=== PATIENT | female | born 1965 | race Caucasian/White ===

== ENCOUNTER → 2017-11-02 07:24 | Outpatient (CLI) | payer OTHER, MEDICAID, SELFPAY ==
--- NOTE | 2017-11-02 07:29 | CT_ITS ---
STUDY: CT LEFT ANKLE WITHOUT CONTRAST REASON FOR EXAM: Female, 51 years old. Nonunion of left ankle fracture. RADIATION DOSAGE (If Supplied By Facility): CTDIvol = ( 15.35 ) mGy, DLP = ( 439.42 ) mGycm TECHNIQUE: Thin section transaxial imaging of the ankle was obtained, with sagittal and coronal reconstructed images. Individualized dose optimization techniques were used for this CT. COMPARISON: Comparison is made with prior radiograph dated August 04, 2017. FINDINGS: There is evidence of a surgical resection of the distal fibula. Screw and sideplate fixation device is seen along the distal portion of the lateral aspect of the tibia. The plate traverses the tibial talar articulation with 2 screws within the talar dome. This is in keeping with the surgical arthrodesis. New cortical bone is seen along the medial aspect of the distal tibia. There is resorption of bone in the distal tibia as well as resorption of the body of the talus and the dome of the talus with the distraction of the fracture fragments. There is diffuse persistent soft tissue swelling. Plantar spur. The ankle mortise is asymmetrical. CT/Extremity Lower without Contra IMPRESSION: Status post arthrodesis of the table talar joint with asymmetry of the ankle joint and fragmentation of the distal portion of the tibia and the superior portion of the talus. Diffuse soft tissue swelling. Electronically Signed: Jayce Anderson MD at 10:29 EST Tel [phone], Service support ,
[2017-11-02 08:34] LABS: Erythrocyte Sedimentation Rate 60 mm/hr (0-30)
[2017-11-02 08:38] LABS: Absolute Lymphocyte Count 2.02 X10^3/ul (0.83-4.51); Absolute Neutrophil Count 4.8 X10^3/uL (2.0-7.7); Basophil# 0.04 X10^3/uL; Basophil% 0.5 % (0-1); Eosinophil# 0.35 X10^3/uL; Eosinophils% 4.6 % (0-5); Hematocrit 40.6 % (37-47); Hemoglobin 12.5 g/dl (12.0-15.0); Lymphocyte # 2.02 X10^3/ul (4.0); Lymphocyte % 26.4 % (19-41); Mean Corp Hgb Conc 30.8 g/gl (32-36); Mean Corpuscular Hgb 24.9 pg (27.0-32.0); Mean Corpuscular Volume 80.9 fL (81-99); Mean Platelet Vol. 10.8 fl (6.2-12.0); Monocyte# 0.45 X10^3/uL; Monocyte% 5.9 % (0-10); Neutrophil # 4.79 X10^3/uL (2.7-7.7); Neutrophil % 62.5 % (47-70); Platelet Count 295 K/mm3 (150-450); RBC Distribution Width CV 17.3 % (11.6-14.6); RBC Distribution Width SD 50.6 fl (35.1-43.9); Red Blood Count 5.02 M/mm3 (4.2-5.4); White Blood Count 7.7 K/mm3 (4.4-11.0)
[2017-11-02 08:42] LABS: POSITIVE COUNT NO; POSITIVE DIFFERENTIAL NO; POSITIVE MORPHOLOGY NO
[2017-11-02 08:54] LABS: ALB/GLOB Ratio 0.7 RATIO (0.9-2.4); AST(SGOT) 9 U/L (15-37); Alanine Aminotransfer ALT/SGPT 18 U/L (12-78); Albumin, Serum 3.1 g/dL (3.4-5.0); Alkaline Phosphatase 142 U/L (45-117); Anion Gap 7 (5-15); BUN 26 mg/dL (7-18); Calcium,Total 8.9 mg/dL (8.5-10.1); Chloride 109 mmol/L (98-107); Creatinine, Serum 0.96 mg/dL (0.55-1.02); EST Glomerular Filtration Rate 64 mL/min (>60); Est Glom Filt Rate - Afr Amer 78 mL/min (>60); Globulin 4.6 g/dL (2.2-4.2); Glucose 87 mg/dL (70-110); Potassium 4.1 mmol/L (3.5-5.1); Protein, Total 7.7 g/dL (6.4-8.2); Sodium Level 141 mmol/L (136-145)
[2017-11-03 08:45] LABS: Vitamin D,25 Hydroxy 45.3 ng/mL
== END ==
PROVIDERS: Family Provider Family Medicine; PCP Family Medicine; Visit Provider Podiatrist
DX: S82.892K Other fracture of left lower leg, subsequent encounter for closed fracture with nonunion (principal); X58.XXXD Exposure to other specified factors, subsequent encounter; M25.572 Pain in left ankle and joints of left foot; Z98.1 Arthrodesis status
CPT/HCPCS: 36415; 73700; 80053; 82306; 85025; 85652; 86140

== ENCOUNTER 2017-11-10 11:39 | Day surgery (SDC) | payer OTHER, MEDICAID, SELFPAY ==
[2017-11-10] VITALS (8 sets, daily range): BP systolic 110–131; BP diastolic 54–84; PULSE 57–95; RESP 16–18; TEMP 36.3–37; O2SAT 94–100; BMI 43.4
[2017-11-10 12:31] LABS: Bedside Glucose 94 mg/dL (70-110)
--- NOTE | 2017-11-10 13:15 | BON_PTH ---
PATIENT: SHALINI CASTELLANOS LOC: [facility] [place] U#:[id number] AGE/SX: 51/F ROOM: RE11/10/[address]: Dr. Kait West DPM : 1965 BED: DIS: 11/10/2017 SPEC #: [id number] RECD: 11/10/17 16:00 STATUS: NEHEMIAHTin REDDY #: [id number] MAURO: 11/10/17 13:[address]: Kait West DEPT: SURGICAL PATHOLOGY RECD BY: Guillermo Joseph ENTERED: 11/13/17 10:43 SP TYPE: Bone OTHR DR: Dr. Alexander Velez MD Tissues: A - Bone of ankle, NOS B - Bone of foot, NOS Procedures: Decalcification bone/plaque Surgery Specimen Level III HEADER OPERATION: Bone biopsy, left ankle PRE-OP DIAGNOSIS: Nonunion left ankle; rule out osteomyelitis TISSUE SUBMITTED: A ? Bone biopsy, left ankle nonunion, B ? Bone biopsy left talus MICROSCOPIC DIAGNOSIS A. Left ankle, bone biopsy: A piece of bone with reactive changes, negative for acute osteomyelitis. Adherent piece of soft tissue with fibrinous exudation and granulation tissue reaction. B. Left talus, bone biopsy: A piece of bone, negative for acute osteomyelitis. SJ:gurinder 11/16/17 MICROSCOPIC DESCRIPTION Slides are reviewed. GROSS DESCRIPTION A - Received in fixative is one container labeled with the patient's name and designated bone biopsy left ankle. The specimen consists of an irregular fragment of wetzel-white bone measuring 0.5 x 0.2 x 0.2 cm. The specimen is totally submitted in one cassette after decalcification. B - Received in fixative is one container labeled with the patient's name and designated bone biopsy left talus. The specimen consists of an irregular fragment of wetzel-white bone measuring 0.3 x 0.2 x 0.2 cm. The specimen is totally submitted in one cassette after decalcification. / AM:gurinder 11/13/17 TC:2 CPT: 97068, 05644
--- NOTE | 2017-11-10 13:15 | RAD_ITS ---
STUDY: X-RAY - LEFT ANKLE REASON FOR EXAM: Female, 51 years old. Intraoperative imaging provided for bone biopsy. TECHNIQUE: 2 coned-down view(s) of the ankle. COMPARISON: None. FINDINGS: A metallic needle is seen along the lateral aspect of the distal tibia. RAD/Ankle 2 Views IMPRESSION: Metallic needle is seen along the lateral inferior aspect of the tibia. Electronically Signed: Jayce Anderson MD at 14:52 EST Tel [phone], Service support ,
[2017-11-10] MEDS: Bupivacaine Mpf 0.5% 30 ML VIAL (13:34)
[2017-11-10] MEDS: Cefazolin 2 GM in 0.9% Normal Saline 100 ML IV (14:01)
--- NOTE | 2017-11-10 14:32 | OP.PN_ITS ---
Problem List (1) Nonunion of arthrodesis Status: Acute (2) Osteomyelitis Status: Suspected Qualifiers: Osteomyelitis location: ankle Laterality: left (3) Charcot ankle Status: Suspected Qualifiers: Laterality: left Qualified Code(s): M14.672 - Charcot's joint, left ankle and foot (4) Avascular necrosis of bone Status: Suspected Immediate Post-Op Note Date of Procedure: 11/10/17 - Surgeon: Kait West DPM Integration Architect: Real Arias PGY1 Primary Surgeon/Physician: Kait West DPM powerhouse engineer: none Pre-Operative Diagnosis: non union left ankle arthrodesis (rule out osteomyelitis, charcot, avascular necrosis) Post-Operative Diagnosis: non union left ankle arthrodesis (rule out osteomyelitis, charcot, avascular necrosis) Surgery/Procedure Performed:: bone biopsy left ankle Description of Surgical Findings:: hemostasis controlled bone biopsies obtained and sent to microbiology and pathology see detailed operative report The patient tolerated the procedure and anesthesia well. Her vascular status was intact to the left lower extremity. She was transported to the PACU with vital signs stable. Postoperative orders were entered electronically. She will be discharged home upon continued stability. Estimated Blood Loss: <50mL Specimen's removed: 1. Left ankle nonunion site bone biopsy sent to pathology. 2. Left ankle nonunion site bone biopsy sent to microbiology (aerobic, anaerobic, acid-fast, fungal). 3. Left talus non union site bone biopsy sent to pathology. 4. Left talus non union site bone biopsy sent to microbiology ( aerobic, anaerobic, acid-fast, fungal) Type of Anesthesia:: Local MAC - Preoperative: 1-1 mixture of 1% lidocaine plain and 0.5% Marcaine plain administered high ankle block fashion, 10 cc Postoperative: 0.5% Marcaine plain administered in local infiltrative manner, 10 cc - Admit VTE Documentation VTE Present on Admission: No VTE Mechan Device Prophylaxis: SCD's
--- NOTE | 2017-11-10 14:34 | PCM.DC.POD ---
Discharge Activity: Use Walker Weight Bearing Status: No weight bearing Keep extremity elevated above heart level: Left Leg Call your doctor if your incision/area has: Continuous Slow Oozing, Sudden Increased Bleeding, Increased Pain/ Swelling, Increased Redness, Foul Smelling Discharge, Swelling at the incision site Call your doctor if you observe: Fever of 101 or Higher, Numbness or Tingling, Calf discomfort, Uncontrolled pain Cleanse incision/area with: Keep Dressing Clean & Dry Allergies/Adverse Reactions: Allergies latex Adverse Reaction (Verified 11/09/17 14:43) Rash morphine Adverse Reaction (Verified 11/09/17 14:43) Vomiting sulfamethoxazole [From Bactrim] Adverse Reaction (Verified 11/09/17 14:43) Vomiting trimethoprim [From Bactrim] Adverse Reaction (Verified 11/09/17 14:43) Vomiting Medications to take at Discharge Aspirin [Aspirin, Baby] 81 mg PO QHS 07/17/16 Lisinopril [Zestril] 20 mg PO DAILY #30 tablet 07/21/16 Metformin HCl [Glucophage] 500 mg PO BIDCM #60 tablet 07/21/16 Gabapentin [Neurontin] 300 mg PO QHS 09/07/16 Sertraline HCl [Zoloft] 50 mg PO DAILY 09/07/16 Ondansetron [Zofran Odt] 4 mg PO Q8H PRN PRN #10 tablet 10/15/16 Lovastatin [Mevacor] 80 mg PO QHS 01/18/17 Zolpidem Tartrate [Ambien] 5 mg PO QHS PRN PRN #14 tablet 03/17/17 Acetaminophen [Tylenol Tablet] 650 mg PO Q6H PRN PRN tablet 08/07/17 Iron Polysaccharide Complex [Ferrex 150] 150 mg PO DAILYCM #30 capsule 08/25/17 Oxycodone [Oxyir] 5 mg PO Q6H PRN PRN #30 tablet 08/25/17 Cholecalciferol (Vitamin D3) [Vitamin D3] 2,000 unit PO DAILY 11/09/17 Insulin NPH Human Isophane [Novolin N] 22 unit SQ DAILY 11/09/17 Insulin NPH Human Isophane [Novolin N] 24 unit SQ QHS 11/09/17 Insulin Regular, Human [Novolin R] 12 unit SC LUNCH 11/09/17 Insulin Regular, Human [Novolin R] 13 unit SC DAILY 11/09/17 Insulin Regular, Human [Novolin R] 13 unit SC DINNER 11/09/17 Polyethylene Glycol 3350 [Miralax] 17 gm PO DAILY PRN 11/09/17 Primary Care Physician: Alexander Velez MD [Primary Care Provider] - Please Follow Up With: Kait West DPM When: [facility]. Call sooner if concerns; [phone] Proposed Discharge Date: 11/10/17
--- NOTE | 2017-11-10 21:16 | PCM.OPRPT ---
Problem List (1) Nonunion of arthrodesis Status: Acute (2) Osteomyelitis Status: Suspected Qualifiers: Osteomyelitis location: ankle Laterality: left (3) Charcot ankle Status: Suspected Qualifiers: Laterality: left Qualified Code(s): M14.672 - Charcot's joint, left ankle and foot (4) Avascular necrosis of bone Status: Suspected Report of Operation Date of Procedure: 11/10/17 - Surgeon: Kait West DPM Laborer Wharf: Real Arias PGY1 Pre-Operative Diagnosis: non union left ankle arthrodesis (rule out osteomyelitis, charcot, avascular necrosis) Post-Operative Diagnosis: non union left ankle arthrodesis (rule out osteomyelitis, charcot, avascular necrosis) Surgery/Procedure Performed:: bone biopsy left ankle Description of Surgical Findings:: Hemostasis: Well-padded pneumatic midcalf tourniquet left lower extremity: 250 mmHg Materials: 2-0 Vicryl, 3-0 nylon Complications: None drawing supervisor: none Type of Anesthesia:: Local MAC - Preoperative: 1-1 mixture of 1% lidocaine plain and 0.5% Marcaine plain administered high ankle block fashion, 10 cc Postoperative: 0.5% Marcaine plain administered in local infiltrative manner, 10 cc Specimen's removed: 1. Left ankle nonunion site bone biopsy sent to pathology. 2. Left ankle nonunion site bone biopsy sent to microbiology (aerobic, anaerobic, acid-fast, fungal). 3. Left talus non union site bone biopsy sent to pathology. 4. 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 She initially had a neglected ankle fracture for approximately six weeks and underwent a delayed open reduction internal fixation procedure. She has clinical and radiographic signs of a nonunion and malunited arthrodesis site with additional hardware disruption. She clinically does not have pain. Her vascular status remained intact to the left lower extremity. She has minimal pain on palpation to the arthrodesis site. Her x-rays demonstrate the talus is laterally dislocated upon the distal tibia and the hardware has loosened and there is a broken screw as well. There are not osseous bridging across the arthrodesis site and the talus has appeared to collapse. Preoperative CT scan also confirmed lack of osseous bridging and provided detailed positioning of the foot upon the ankle. Preoperative diagnostic data was reviewed including vitamin D of 45.3, C-reactive protein 21, fairly normal CMP, white blood cell count 7.7, and sedimentation rate of 60. Her EKG was also reviewed and signed off on by her primary care physician. Dr. Velez, her primary care physician, from the preoperative history and physical exam and medical clearance for both this initial bone biopsy case as well as her staged reconstructive procedure. The goal is to perform a revisional arthrodesis with internal and external fixation. Pending the bone biopsy results, additional measures will be taken to address any suspected bone infection or avascular necrosis. The preoperative indications, planned procedure, possible benefits, risks, and anticipated healing time and management were discussed in detail with the patient and her mother. She understands and elects to proceed with surgery at this time. No guarantees are made. She does understand that she is at risk for limb loss and this is a planned staged procedure. She understands the following complications are possible but not limited to: continued pain, swelling, deformity, hardware failure, need for revisional surgery, loss of function, limb, life, blood clot. I answered all her questions. Her surgical consent and limb were signed. Procedure in detail: The patient was transported to the operating room via cart and placed on the operating table in the supine position. Final verification of the patient, surgery, and limb designation was performed via the timeout procedure. A preoperative local anesthetic was administered by the podiatry team. A left midcalf well-padded tourniquet was placed. Preoperative antibiotics were not given because they were held until after the bone biopsy was obtained. MAC anesthesia was initiated by the anesthesia team. The left lower extremity was prepped and draped in the usual aseptic manner and surgery began as a following: An intraoperative Doppler was used to map out the artery crossing the ankle joint and care was taken to avoid incision and dissection that would interfere. Intraoperative fluoroscopy was used to confirm the ideal bone biopsy sites. An Esmarch bandage was used to exsanguinate the left lower extremity and the tourniquet was inflated at this time. A 1 cm linear incision was made to both the anterior medial and anterior lateral ankle through the skin. Blunt dissection was performed down to capsular layer in which care was taken to identify, protect, and retract all neurovascular structures at this point and the remainder of the surgery. An additional incision was made at each ankle capsule site in which blunt dissection was next performed down to the arthrodesis non union site. A MICMALI bone biopsy kit was used to obtain a cylindrical bone biopsy from both the arthrodesis site as well as the talus nonunion arthrodesis site. Intraoperative fluoroscopy was used to confirm appropriate placement of each biopsy. Each specimen was sent to both microbiology and pathology as noted above. After the bone biopsies were obtained IV ancef was administered by the anesthesia team. The tourniquet was deflated at this time and brisk capillary refill time was noted to all digits of the left foot. No pulsatile bleeding was noted. Vicryl was used to perform deep closure. Next, the skin was reapproximated utilizing horizontal mattress technique with nylon suture. A postoperative dressing consisting of Xeroform, 4 x 4 gauze, Kerlix, and sterile webril was applied. A well-padded posterior mold was next applied with an additional sugar tong splint and this was secured in place an Jeferson wrap. After procedure: The patient tolerated the procedure and anesthesia well. She was transported to the PACU with vital signs stable and vascular status intact to the left lower extremity. She was advised to ice and elevate for postoperative pain and inflammation management. She was advised on safe use of postoperative pain medication. She was advised to obtain a strict nonweightbearing position with her splint in place and to use her crutches for assistance. She will be discharged home this evening upon continued stability. I will follow her bone biopsy results very close. She was advised to follow-up [facility] [address] West for postsurgical check or call sooner if she has any questions or concerns. All of her postoperative orders were entered electronically. Kait West DPM [facility]
== END 2017-11-10 15:40 | disposition home or self-care (01) ==
LOC: SDC 11:43 → ACINP 11:43 → AC 13:38
PROVIDERS: Family Provider Family Medicine; PCP Family Medicine; Visit Provider Podiatrist
PROC: (CPT 20240; principal; 2017-11-10 13:00)
DX: M96.0 Pseudarthrosis after fusion or arthrodesis (principal); M84.672K Pathological fracture in other disease, left ankle, subsequent encounter for fracture with nonunion; M19.172 Post-traumatic osteoarthritis, left ankle and foot; T14.90XS Injury, unspecified, sequela; X58.XXXS Exposure to other specified factors, sequela; E11.65 Type 2 diabetes mellitus with hyperglycemia; I10 Essential (primary) hypertension; E78.5 Hyperlipidemia, unspecified; J45.909 Unspecified asthma, uncomplicated; D64.9 Anemia, unspecified; E55.9 Vitamin D deficiency, unspecified; F32.9 Major depressive disorder, single episode, unspecified; Z79.82 Long term (current) use of aspirin; Z79.4 Long term (current) use of insulin; Z79.899 Other long term (current) drug therapy
CPT/HCPCS: 20240 ×2; 73600; 76000; 82962; 87015; 87070; 87075; 87102; 87116; 87205; 87206; 88304; 88311; J7120

== ENCOUNTER 2017-11-24 20:56 | Observation (INO) | payer MEDICAID, SELFPAY ==
[2017-11-10 12:12] VITALS: BMI 43.4
[2017-11-10 15:40] VITALS: BP 130/78
[2017-11-24] VITALS (10 sets, daily range): BP systolic 91–138; BP diastolic 49–85; PULSE 77–102; RESP 12–18; TEMP 36.4–36.9; O2SAT 93–100; BMI 51.5
[2017-11-24 11:46] LABS: Bedside Glucose 116 mg/dL (70-110)
[2017-11-24 12:06] LABS: Hemoglobin A1c 5.8 % (4.2-6.3)
--- NOTE | 2017-11-24 12:30 | RAD_ITS ---
STUDY: X-RAY - RIGHT FOOT CLINICAL: Female, 51 years old. Documentation of fluoroscopic radiation use during orthopedic surgery. TECHNIQUE: 11 view(s) of the foot. COMPARISON: CT of ankle dated November 02, 2017. FINDINGS: 316.3 seconds of fluoroscopic radiation was utilized during the procedure. Radiation dose is 15.89 mGy. Multilevel images reveal external fixator. A plate and screws are visible adjacent and within the tibia. There appears to have been osteotomy of the distal fibula. Please see operative report for additional details. RAD/Ankle min 3 Views IMPRESSION: Documentation of fluoroscopic radiation use. Electronically Signed: Renetta Alford MD at 8:08 EST , Service support ,
--- NOTE | 2017-11-24 12:30 | BONBX_PTH ---
PATIENT: SHALINI CASTELLANOS LOC: [facility] U#:[id number] AGE/SX: 51/F ROOM: [facility] RE11/24/[address]: Ananth Harley MD : 1965 BED: 1 DIS: 11/29/2017 SPEC #: [id number] RECD: 11/27/17 10:17 STATUS: LA NENA REQ #: [id number] MAURO: 11/24/17 12:[address]: Kait West DEPT: SURGICAL PATHOLOGY RECD BY: Cody Hernandez ENTERED: 11/27/17 13:18 SP TYPE: Bone OTHR DR: MD Dr. Alexander Gallardo MD Kombian Gbaruk, MD Tissues: Bone of foot, NOS Procedures: Decalcification bone/plaque Surgery Specimen Level III Comments: @ Ordering doctor for DEC edited from to @ by ANGIE at 11/27/17 1523 @ Ordering doctor for SUV edited from to @ by ANGIE at 11/27/17 1523 @ Submitting doctor edited from to @ by RGOOD at 11/27/17 1523 HEADER OPERATION: Hardware removal, ankle with application bone graft PRE-OP DIAGNOSIS: Pathological fracture of left ankle and nonunion TISSUE SUBMITTED: Left foot talus bone MICROSCOPIC DIAGNOSIS Left foot talus bone: A piece of bone with reactive changes, negative for acute osteomyelitis. Adherent piece of soft tissue with fibrinous exudation and granulation tissue reaction. RIOS:gurinder 11/30/17 COMMENT Please make reference to previous specimen ([id number]) left ankle bone, biopsy with diagnosis of a piece of bone with reactive changes, negative for acute osteomyelitis and left talus, bone biopsy with diagnosis of a piece of bone, negative for acute osteomyelitis. MICROSCOPIC DESCRIPTION Slides are reviewed. GROSS DESCRIPTION Received in fixative is one container labeled with the patient's name and designated left foot talus bone. The specimen consists of an irregular fragment of wetzel bone measuring 1.5 x 1 x 0.3 cm. The specimen is submitted in its entirety in one cassette after decalcification. / CANDIDO:gurinder 11/27/17 TC:5 CPT: 53350, 98216
[2017-11-24] MEDS: Heparin 10,000 UNITS/10 ML Vial 10000 UNITS (13:20)
[2017-11-24] MEDS: Calcium Chloride 1 GM/10 ML Syringe IV (13:20)
--- NOTE | 2017-11-24 20:30 | RAD_ITS ---
STUDY: X-RAY - LEFT FOOT CLINICAL: Female, 51 years old. Postop TECHNIQUE: 3 view(s) of the foot. COMPARISON: None. FINDINGS: Extensive artifact from metal external fixator. Probable surgical ankylosis of the ankle although this area is very poorly seen. Marked diffuse demineralization. External fixator pins are seen through the midfoot and hindfoot. No definite fractures or dislocations. On the lateral view grossly normal alignment of the tibia with the hindfoot. RAD/Foot min 3 Views IMPRESSION: Extremely limited by severe demineralization and metal artifact. There appears to have been surgical ankylosis of the ankle and hindfoot. No definite acute fractures or dislocations. Electronically Signed: Jacob Carcamo MD at 23:52 EST , Service support ,
--- NOTE | 2017-11-24 20:30 | RAD_ITS ---
STUDY: X-RAY - LEFT TIBIA AND FIBULA REASON FOR EXAM: Female, 51 years old. Postop evaluation. TECHNIQUE: 4 view(s) of the tibia and fibula were obtained. COMPARISON: CT of the ankle dated November 02, 2017. FINDINGS: There is demineralization of the tibia. There is an Ilizarov external fixating device present. Multiple plate and screws are visible within the distal tibia. Plate and screws are visible within the tarsal bones. Appears to have been osteotomy of the distal fibula. There is soft tissue swelling. RAD/Tibia & Fibula 2 Views IMPRESSION: Status post open reduction internal fixation of complex fracture of the ankle and foot with Ilizarov fixator present. Electronically Signed: Renetta Alford MD at 8:10 EST , Service support ,
--- NOTE | 2017-11-24 20:30 | RAD_ITS ---
STUDY: X-RAY - LEFT ANKLE REASON FOR EXAM: Female, 51 years old. Postoperative evaluation. TECHNIQUE: 3 view(s) of the ankle. COMPARISON: Radiographs of the left leg dated November 24, 2017. FINDINGS: An Ilizarov fixator device is visible. The bones are osteopenic. Plate and screws are present adjacent to and within the distal tibia. There may have been arthrodesis of the tarsal bones with a screw traversing the talus and calcaneus. Anatomic detail is otherwise limited secondary to multiple metallic devices.. There are degenerative changes of the tibiotalar articulation with apparent fragmentation of the talus. There may be a fracture of the calcaneus. There is extensive soft tissue swelling. RAD/Ankle min 3 Views IMPRESSION: Postoperative changes as described. Electronically Signed: Renetta Alford MD at 8:14 EST , Service support ,
--- NOTE | 2017-11-24 20:33 | PCM.HP.STD ---
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 (2) Nonunion of arthrodesis Status: Chronic (3) Depression Status: Chronic Qualifiers: Depression Type: unspecified Qualified Code(s): F32.9 - Major depressive disorder, single episode, unspecified (4) HLD (hyperlipidemia) Status: Chronic (5) HTN (hypertension) Status: Chronic Qualifiers: Hypertension type: essential hypertension Qualified Code(s): I10 - Essential (primary) hypertension (6) Morbid obesity due to excess calories Status: Chronic (7) Neuropathic pain Status: Chronic (8) Avascular necrosis of bone Status: Chronic History of Present Illness Date of Admission: 11/24/17 Chief Complaint: L ankle pain, avascular necrosis, prior fracture w/ hardware failure. The patient is a 51 y/o F w/ PMHx: Morbid Obesity, HTN, HLD, Depression, Diabetes mellitus type II, Chronic Normocytic Anemia (Baseline Hgb 8-10) who presents to the [facility] on 11/24/17 for planned ankle arthrodesis with internal and external fixation per Dr. 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 She per history initially had ankle fracture last year which eventually lead to severe OA and pain with follow-up hardware failure with fusion following and eventual talus collapse prompting recent intervention. Per Dr. West there were no austen-operative events. Post-operative plans and Podiatry orders included LLE elevation, icing, x-ray films in AM, NWB, PT and OT evaluation for possible rehabilitation evaluation,abx therapy x 48 hours, chemoprophylaxis lovenox to start tomorrow AM, CBC, BMP in AM. 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) Left leg pain (Chronic) Morbid obesity due to excess calories (Chronic) HTN (hypertension) (Chronic) HLD (hyperlipidemia) (Chronic) Allergies latex Adverse Reaction (Verified 11/17/17 11:01) Rash morphine Adverse Reaction (Verified 11/17/17 11:01) Vomiting sulfamethoxazole [From Bactrim] Adverse Reaction (Verified 11/17/17 11:01) Vomiting trimethoprim [From Bactrim] Adverse Reaction (Verified 11/17/17 11:01) Vomiting Home Medications: Ambulatory Orders Medication Instructions Recorded Aspirin [Aspirin, Baby] 81 mg PO QHS 07/17/16 Lisinopril [Zestril] 20 mg PO DAILY #30 tablet 07/21/16 Metformin HCl [Glucophage] 500 mg PO BIDCM #60 tablet 07/21/16 Gabapentin [Neurontin] 300 mg PO QHS 09/07/16 Sertraline HCl [Zoloft] 50 mg PO DAILY 09/07/16 Ondansetron [Zofran Odt] 4 mg PO Q8H PRN PRN #10 tablet 10/15/16 Lovastatin [Mevacor] 80 mg PO QHS 01/18/17 Zolpidem Tartrate [Ambien] 5 mg PO QHS PRN PRN #14 tablet 03/17/17 Acetaminophen [Tylenol Tablet] 650 mg PO Q6H PRN PRN tablet 08/07/17 Iron Polysaccharide Complex 150 mg PO DAILYCM #30 capsule 08/25/17 [Ferrex 150] Oxycodone [Oxyir] 5 mg PO Q6H PRN PRN #30 tablet 08/25/17 Cholecalciferol (Vitamin D3) 2,000 unit PO DAILY 11/09/17 [Vitamin D3] Insulin NPH Human Isophane 22 unit SQ DAILY 11/09/17 [Novolin N] Insulin NPH Human Isophane 24 unit SQ QHS 11/09/17 [Novolin N] Insulin Regular, Human [Novolin R] 12 unit SC LUNCH 11/09/17 Insulin Regular, Human [Novolin R] 13 unit SC DAILY 11/09/17 Insulin Regular, Human [Novolin R] 13 unit SC DINNER 11/09/17 Polyethylene Glycol 3350 [Miralax] 17 gm PO DAILY PRN 11/09/17 Surgical History: hysterectomy - RAINA w/ BLSOO, - - Abdominal abscess I&D, +MRSA 07/24, Breast abscess R breast, Previous left ankle surgery following fracture, hardware, eventual fusion and most recent arthrodesis as noted. Psychiatric History: Depression CUSTOMER ENGAGEMENT SPECIALIST History: No pertinent CUSTOMER ENGAGEMENT SPECIALIST history Lives: Alone Smoking Status: Never smoker Tobacco Use: Non-smoker Alcohol: None Drugs: None - *Family History Maternal History Items: Heart Disease Paternal History Items: Diabetes Sibling History Items: Heart Disease, Stroke Review of Systems Constitutional: Reports: Malaise, Weakness, Fatigue. Denies: Chills, Fever, Weight Change HEENT: Denies: Head Aches, Sinus Congestion, Sinus Drainage Cardiovascular: Denies: Chest Pain, Palpitations Respiratory: Denies: Cough, Shortness of breath at rest, Sputum production Gastrointestinal: Denies: Abdominal Pain, Nausea, Vomiting Genitourinary: Denies: Dysuria Musculoskeletal: Reports: Foot Pain, Joint stiffness, Joint swelling, Joint Tenderness, Leg Pain. Denies: Joint Pain Skin: Denies: Rash, Wounds Neurological: Denies: Numbness, Tingling, Focal weakness Psychiatric: Reports: Depression. Denies: Anxiety, Homicidal Ideations, Suicidal Ideations Hematologic/ Lymphatic: Reports: Anemia. Denies: Easy Bruising, Easy Bleeding VTE Information - Inpt Only VTE Present on Admission: No VTE Mechan Device Prophylaxis: SCD's VTE Pharm Prophylaxis ordered?: Yes Subjective: Patient laying in the PACU bed, intermittent falling asleep, fatigued, notes ongoing pain LLE. Objective: Physical Examination: General: awakens to stimuli, intermittently alert, oriented x 3, cooperative, seated upright in the PACU bed, fatigued, notes ongoing pain LLE. Skin: normal color, turgor, no icterus, cyanosis. HEENT: AT/NC, EOMI, PERRLA, dry MM, no carotid bruits or JVD noted. Lungs: CTA bilaterally, moderate effort, moderate decrease BL bases, no rales, ronchi or wheezing to anterior and side examination given lethargic post-op. Heart: Regular rate and rhythm; no gallop, rub audible. Abdomen: soft, morbidly obese, NTTP, ND, normal BS, no HSM; however, habitus makes examination difficult. Extremities: no cyanosis, clubbing, LLE in extensive dressing/wrap, elevated, RLE w/ ankle edema. Neurological: awakens to stimuli, intermittently alert, oriented x 3 and cooperative, seated upright in the PACU bed in no apparent distress; cognitive function decreased given recent sedation, but intact; pupils equally reactive to light and accomodation; cranial nerves II-XII grossly normal, movement intact aside LLE, deferred given recent OR, extensive dressing, strength accordingly severely globally decreased. Psychiatric: affect appears fatigued, no acute evidence of depressive or anxiety feelings. - Physical Exam Vital Signs Temp Pulse Resp BP Pulse Ox 98.1 F 102 H 16 91/51 L 98 11/24/17 20:21 11/24/17 20:21 11/24/17 20:21 11/24/17 20:21 11/24/17 20:21 Oxygen Flow Rate 3 Oxygen Delivery Method Nasal Cannula Weight: 349 lb Body Mass Index (BMI) 51.5 Finger Stick Blood Glucose 130 Laboratory Tests Past 24 Hrs 11/24/17 11/24/17 11:05 13:03 Hemoglobin A1c 5.8 Blood Type O POSITIVE Antibody Screen NEGATIVE POC Glucose 11/24/17 11:22 POC Glucose 116 H Assessment/Plan The patient is a 51 y/o F w/ PMHx: Morbid Obesity, HTN, HLD, Depression, Diabetes mellitus type II, Chronic Normocytic Anemia (Baseline Hgb 8-10) who presents to the [facility] on 11/24/17 for planned ankle arthrodesis with internal and external fixation per Dr. 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 (1) Non-union of previous ankle fusion with hardware failure and avascular necrosis of the talus: 11/24/17 ankle arthrodesis with internal and external fixation per Dr. West, plan LLE elevation, icing, x-ray films in AM, NWB, PT and OT evaluation for possible rehabilitation evaluation,abx therapy x 48 hours, chemoprophylaxis lovenox to start tomorrow AM, CBC, BMP in AM. (2) Hypertension: Continue home regimen including lisinopril, PRN hydralazine. (3) Hyperlipidemia: Continue home statin regimen. (4) Depression: Continue home zoloft regimen, notably low dose. (5) Diabetes mellitus type II: Hold oral home regimen, continue home insulin regimen, ADA diet, accu checks w/ ISS. (6) Chronic Normocytic Anemia, Fe Deficiency Anemia: Hgb 12.5 prior to OR recently, most recent trend 8-10, obtain AM CBC, continue Fe supplementation. (7) Morbid Obesity: Weight loss and lifestyle changes encouraged, nutrition consulted. (8) Possible AMANDA: Denies any history, given habitus, would benefit from outpatient sleep study, will need to re-question when less fatigued and not recent OR sedation. (9) DVT Prophylaxis: SCD to unaffected extremity, lovenox to start in AM. Code Visit OBSV E&M: [id number] Initial observation care L3
[2017-11-24 20:36] LABS: Bedside Glucose 258 mg/dL (70-110)
--- NOTE | 2017-11-24 20:44 | PCM.IMDPSTOP ---
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 Assistants: Galo Grijalva DPM and JUAN ANTONIO Ferrer Primary Surgeon/Physician: Kait West DPM marine fisheries technician: none Pre-Operative Diagnosis: avascular necrosis of talus. hardware failure, left ankle. non union left ankle arthrodesis Post-Operative Diagnosis: avascular necrosis of talus. hardware failure, left ankle. non union left ankle arthrodesis Surgery/Procedure Performed:: -hardware removal left ankle. -excision of non viable bone. -revisional ankle arthrodesis with internal and external fixation. -application of bone marrow aspirate and bone graft Description of Surgical Findings:: hemostasis controlled loss of talar height no purulence see detailed operation report The patient tolerated the procedure and anesthesia well. She will be transferred to the PACU with vitals stable and vascular status intact to the left lower extremity. She will be admitted post operative for observation, pain control. I recommend rehabilitation placement. All post operative orders were entered electronically. Estimated Blood Loss: 450 mL Specimen's removed: left talus bone sent to microbiology (aerobic, anearobic, acid fast, fungal) and pathology Type of Anesthesia:: General/Regional - Admit VTE Documentation VTE Present on Admission: No VTE Mechan Device Prophylaxis: SCD's VTE Pharm Prophylaxis ordered?: Yes
--- NOTE | 2017-11-24 20:50 | OP.PN_ITS ---
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 Assistants: Galo Grijalva DPM and JUAN ANTONIO Ferrer Primary Surgeon/Physician: Kait West DPM cloth stretcher: none Pre-Operative Diagnosis: avascular necrosis of talus. hardware failure, left ankle. non union left ankle arthrodesis Post-Operative Diagnosis: avascular necrosis of talus. hardware failure, left ankle. non union left ankle arthrodesis Surgery/Procedure Performed:: -hardware removal left ankle. -excision of non viable bone. -revisional ankle arthrodesis with internal and external fixation. -application of bone marrow aspirate and bone graft Description of Surgical Findings:: hemostasis controlled loss of talar height no purulence see detailed operation report The patient tolerated the procedure and anesthesia well. She will be transferred to the PACU with vitals stable and vascular status intact to the left lower extremity. She will be admitted post operative for observation, pain control. I recommend rehabilitation placement. All post operative orders were entered electronically. Estimated Blood Loss: 450 mL Specimen's removed: left talus bone sent to microbiology (aerobic, anearobic, acid fast, fungal) and pathology Type of Anesthesia:: General/Regional - Admit VTE Documentation VTE Present on Admission: No VTE Mechan Device Prophylaxis: SCD's VTE Pharm Prophylaxis ordered?: Yes
--- NOTE | 2017-11-24 20:51 | PCM.OPRPT ---
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 Assistants: Galo Grijalva DPM and JUAN ANTONIO Ferrer Pre-Operative Diagnosis: avascular necrosis of talus. hardware failure, left ankle. non union left ankle arthrodesis Post-Operative Diagnosis: avascular necrosis of talus. hardware failure, left ankle. non union left ankle arthrodesis Surgery/Procedure Performed:: -hardware removal left ankle. -excision of non viable bone. -revisional ankle arthrodesis with internal and external fixation. -application of bone marrow aspirate and bone graft Description of Surgical Findings:: hemostasis: well padded left pneumatic ankle tourniquet; 325 mmHg materials: [employer] locking blade plate with cortical and locking screws, one cannulated screw, orthofix external fixation with three half pins, wire, two tibial rings, foot plate, two foot half pains, transcalaneal pin, 2-0 vicryl, 2-0 and 3-0 nylon, femoral head allograft, bone marrow aspirate harvested from the ipsilateral tibia complicatios: none Type of Anesthesia:: General/Regional Specimen's removed: left talus bone sent to microbiology (aerobic, anearobic, acid fast, fungal) and pathology Estimated Blood Loss (mL): 450 mL Description of Procedure: Indications: This 51-year-old female with significant past medical history of diabetes, hypertension, lipidemia, depression, and anemia initially sustained an ankle fracture that was neglected for approximately 6 weeks with subsequent open reduction internal fixation. She developed degenerative changes of the ankle and underwent an ankle arthrodesis. She then developed continued avascular necrosis and and collapse of the talar body with hardware failure and nonunion of the arthrodesis site. She returned to the operating room today for revisional ankle arthrodesis with application of bone marrow aspirate and bone graft with internal and external fixation. Her neurovascular status remained intact with palpable and dopplerable pulses. Her edema has been controlled. Radiographs demonstrate the foot is laterally dislocated upon the tibia with evidence of non-and malunion. This was additionally confirmed with the CT scan. There is a broken screw and malalignment of the plate. She did not have recent pain on palpation however this is not considered stable.Therefore, I recommend revisional surgery at this time. She had a bone biopsy obtain nearly two weeks ago to evaluate for osteomyelitis and the microbiology and pathology results were negative. The preoperative indications, planned procedure, possible benefits, risks, anticipated healing time and management were discussed in detail with the patient. She understands and elects to proceed with surgery at this time. No guarantees were made. She understands the risks and complications include but are not limited to the following: infection, scar, continued pain, swelling, nonunion or delayed union, nonhealing or delayed healing, blood clot, loss of limb, need for additional surgery, loss of life or function. Informed surgical consent and the surgical limb were signed. I answered all of her questions. Procedure in detail: The patient was transported to the operating room via cart and placed on the operating table in the supine position. Final verification of the patient, surgery, and limb designation was performed via the timeout procedure. IV antibiotics were administered preoperative. A regional left lower extremity block was administered by the anesthesia team. General anesthesia was initiated by the anesthesia team. A well-padded left thigh tourniquet was placed. The left lower extremity was prepped and draped in the usual aseptic manner. Surgery began following manner: Attention was first directed to the left leg proximal near the tibial tuberosity. A less than 1 cm linear incision was made distal medial to the tibial tuberosity. Blunt dissection was performed down to the tibia. A trocar was entered and approximately 60 cc of bone marrow aspirate was extracted. This was set aside in processed for later incorporation into the bone graft to increase arthrodesis success. This site was irrigated and 1 horizontal mattress 3-0 nylon suture was placed. Next, attention was directed to the lateral aspect of the left ankle which a 10 cm linear incision was made in the skin utilizing the previous cicatrix. Blunt dissection was performed down to the previously placed hardware taking care to identify, protect, and retract all neurovascular structures at this point and throughout the remainder of the surgery. Hardware was removed and set aside. There was a proximal screw that was broken and partially retained in the tibia. The nonunion site was identified and debrided at the ankle level to remove nonviable and devitalized tissue. It is noted that further talus collapse is present and this basically involve the entire talar body. The articular surface of the calcaneus was directly visualized. The collapsed talus bone was sent to pathology and microbiology as noted above. The ankle joint was manually manipulated and reduction was performed. Bone graft application from femoral head allograft was fashioned to fill the large void defect from the removal of the talar body. The adjacent cartilage from the surrounding structures were removed and joint preparation was performed to healthy bleeding subchondral bone to the distal tibia including the exposed calcaneus and remainder of the talar neck. Good alignment and approximation was confirmed with direct visualization and intra operative xrays. Temporary fixation was applied and reduction was achieved. Additional bone graft mixed with bone marrow aspirate was applied to the lateral incision. An additional anterior medial 3 cm linear incision was made through the skin and blunt dissection was performed to the ankle capsular level taking to protect neurovascular structures. An incision was made to enter the capsule. Additional bone graft was added to this medial aspect of the joint as well. The tourniquet was deflated at this time and no pulsatile bleeding was noted. After 20 minutes the tourniquet was reinflated. The lateral plate was applied to span the tibia to the calcaneus. This was secured in place according to standard AO fixation protocol with locking and nonlocking screws. An additional size 7 cannulated screw was applied from the anterior proximal medial tibia to the posterior lateral plantar calcaneus. Solid fixation was achieved. Saline irrigation was performed. The tourniquet was deflated at this time and brisk capillary refill time was noted to all digits of the left foot. No pulsatile bleeding was noted. Additional bone marrow aspirate was applied to the incision during closure with deep closures was completed with 2-0 Vicryl. The skin was reapproximated with 2-0 and 3-0 nylon utilizing horizontal and vertical mattress technique. Next, the external fixation device was applied. This was pre-built and lined up according to the premarked anatomic structures in a rectus position. The tibial block proximal rings (2) were secured to the tibia with standard external fixation technique with 2 half pins and the distal tibial block ring was secured to the tibia with one half pin and a wire utilizing proper safe zone technique. This wire was tensioned to 100 according to standard technique. Next, attention was directed to the foot plate in which this was secured with a trans-calcaneal pin. Next, the midfoot was secured to the footplate with additional smaller half pins into the cuboid and first cuneiform. Intraoperative fluoroscopy was utilized to ensure proper placement of all wires and pins. Lastly, all nuts and bolts were tightened to insure a stable and secure fit. Capillary refill time remained brisk to all digits of the left foot during and after the procedure. His foot remains in a rectus position with solid stable internal and external fixation. A dressing consisting of Xeroform, gauze, Kerlix, and multiple Jeferson wraps were applied to the limb over the surgical wounds for protection and for additional edema management. Outer jeferson wraps were also applied as well to cover the external fixation device. After procedure: The patient tolerated the procedure and anesthesia well. She was transported to the postoperative recovery unit with vital signs stable and vascular status intact to left lower extremity. Postoperative x-rays were obtained prior to leaving the operating room in which arthrodesis site reduction was maintained and solid fixation was confirmed with plates and screws as well as external fixation device. No acute injuries were noted. She was advised to ice and elevate her left lower extremity for pain and inflammation control. Postoperative pain medication will be ordered. She will be admitted for observation for pain control and also to try to get her qualified to go to a rehabilitation facility. She has not been able to maintain a nonweightbearing status safely at home during previous postoperative periods and this is essential for healing capabilities. This case was reviewed with the admitting hospitalist and medical management is appreciated. DVT prophylaxis will be initiated tomorrow with Lovenox. She is advised to maintain a strict nonweightbearing status and physical therapy will also be consulted. Due to her high risk status and amount of devitalized talus bone noted, I also recommend 3 courses of IV antibiotics to prevent bacterial colonization. The specimen results are pending. Kait West, [facility] - Admit VTE Documentation VTE Present on Admission: No VTE Mechan Device Prophylaxis: SCD's VTE Pharm Prophylaxis ordered?: Yes
[2017-11-24 23:25] LABS: Anion Gap 9 (5-15); BUN 24 mg/dL (7-18); BUN/Creat Ratio 19.4 RATIO (10-20); Calcium,Total 8.1 mg/dL (8.5-10.1); Chloride 108 mmol/L (98-107); Creatinine, Serum 1.24 mg/dL (0.55-1.02); EST Glomerular Filtration Rate 48 mL/min (>60); Est Glom Filt Rate - Afr Amer 58 mL/min (>60); Estimated Creatinine Clearance 54.83 ml/min; Glucose 239 mg/dL (74-106); Magnesium 1.9 mg/dL (1.6-2.6); Potassium 4.9 mmol/L (3.5-5.1); Sodium Level 139 mmol/L (136-145)
[2017-11-24] MEDS: Cefazolin 1 GM/50 ML BAG IV (23:52)
[2017-11-24 23:57] LABS: Absolute Lymphocyte Count 0.69 X10^3/ul (0.83-4.51); Absolute Neutrophil Count 11.5 X10^3/uL (2.0-7.7); Basophil# 0.02 X10^3/uL; Basophil% 0.2 % (0-1); Eosinophil# 0.01 X10^3/uL; Eosinophils% 0.1 % (0-5); Hematocrit 31.8 % (37-47); Hemoglobin 10.1 g/dl (12.0-15.0); Lymphocyte # 0.69 X10^3/ul (4.0); Lymphocyte % 5.4 % (19-41); Mean Corp Hgb Conc 31.8 g/gl (32-36); Mean Corpuscular Hgb 26.3 pg (27.0-32.0); Mean Corpuscular Volume 82.8 fL (81-99); Mean Platelet Vol. 11.7 fl (6.2-12.0); Monocyte# 0.56 X10^3/uL; Monocyte% 4.4 % (0-10); Neutrophil % 89.7 % (47-70); Platelet Count 218 K/mm3 (150-450); RBC Distribution Width CV 16.5 % (11.6-14.6); RBC Distribution Width SD 48.7 fl (35.1-43.9); Red Blood Count 3.84 M/mm3 (4.2-5.4); White Blood Count 12.8 K/mm3 (4.4-11.0)
[2017-11-25 00:01] LABS: POSITIVE COUNT NO; POSITIVE DIFFERENTIAL NO; POSITIVE MORPHOLOGY NO
[2017-11-25 00:02] VITALS: BMI 44.5
[2017-11-25] MEDS: 0.9% NaCl Peripheral Flush Adult/Peds IV (00:05)
[2017-11-25 00:17] LABS: Bedside Glucose 215 mg/dL (70-110)
[2017-11-25 02:08] VITALS: BP 134/53; PULSE 85; RESP 16; TEMP 36.5; O2SAT 97
[2017-11-25] MEDS: HYDROcodone Bitartrate/Apap 5/325 Tablet PO ×3 (05:25→20:36)
[2017-11-25] MEDS: Cefazolin 1 GM/50 ML BAG IV ×3 (06:32→22:35)
[2017-11-25] MEDS: Enoxaparin 40 MG/0.4 ML Syringe SC (06:35)
[2017-11-25 06:56] LABS: Bedside Glucose 162 mg/dL (70-110)
[2017-11-25 07:40] VITALS: BP 111/56; PULSE 111; RESP 16; TEMP 37.3; O2SAT 97
[2017-11-25 08:20] VITALS: O2SAT 98
--- NOTE | 2017-11-25 09:02 | PN_ITS ---
Subjective: Patient was seen and examined. Complains of pain in the left foot, being 7/10, denies any fever or chills or chest pain or dizziness. Vitals/I&O's: Vital Signs Temp Pulse Resp BP Pulse Ox 99.1 F 111 H 16 111/56 L 98 11/25/17 07:40 11/25/17 07:40 11/25/17 07:40 11/25/17 07:40 11/25/17 08:20 Oxygen Flow Rate 2 Oxygen Delivery Method Nasal Cannula Weight: 136.7 kg Body Mass Index (BMI) 44.5 Finger Stick Blood Glucose 258 Intake and Output for Last 24 Hours 11/23/17 11/24/17 11/25/17 23:59 23:59 23:59 Intake Total 5500 / 5500 1212 / 1212 Output Total 350 / 350 Balance 5150 / 5150 1212 / 1212 General: Alert, Oriented x3, Cooperative, No apparent distress, - - on 2L oxygen HEENT: Atraumatic, PERRLA, EOMI, Normocephalic Oral: Moist Mucosa Neck: Supple Lungs: Clear to auscultation, Normal air movement Cardiovascular: Regular rate, Regular Rhythm, Normal S1, Normal S2, No murmurs Abdomen: Bowel Sounds Present, Soft, Non Tender, Non-Distended, No Hepato- splenomegaly Extremities: No edema, - - Left foot and lower leg in external fixators with georges wraps around Skin: No rashes Musculoskeletal: No Tenderness to Palpation of Joints or Extremities Lymphatic: No Cervical, Supraclavicular, or Inguinal Adenopathy Neurological: Cranial nerves II-XII grossly intact, Neuro grossly intact Psych/Mental Status: Normal Affect, Appropriate Laboratory Results 11/24/17 11:05: Hemoglobin A1c 5.8 11/24/17 11:22: POC Glucose 116 H 11/24/17 13:03: Blood Type O POSITIVE, Antibody Screen NEGATIVE 11/24/17 20:31: POC Glucose 258 H 11/24/17 23:06: Sodium 139, Potassium 4.9, Chloride 108 H, Carbon Dioxide 22.0, Anion Gap 9, BUN 24 H, Creatinine 1.24 H, Estim Creat Clear Calc 54.83, Est GFR (MDRD) Af Amer 58 L, Est GFR (MDRD) Non-Af 48 L, BUN/Creatinine Ratio 19.4, Glucose 239 H, Calcium 8.1 L, Magnesium 1.9 11/24/17 23:34: WBC 12.8 H, RBC 3.84 L, Hgb 10.1 L, Hct 31.8 L, MCV 82.8, MCH 26.3 L, MCHC 31.8 L, RDW 16.5 H, RDW Differential 48.7 H, Plt Count 218, MPV 11.7, Immature Gran % (Auto) 0.200, Neut % (Auto) 89.7 H, Lymph % (Auto) 5.4 L, [place] % (Auto) 4.4, Eos % (Auto) 0.1, Baso % (Auto) 0.2, Absolute Neuts (auto) 11.5 H, Absolute Lymphs (auto) 0.69 L, Total Counted Not Reportable 11/25/17 00:03: POC Glucose 215 H 11/25/17 06:38: POC Glucose 162 H Current Medications Acetaminophen (Tylenol) 650 mg PO Q6H PRN PRN PRN Reason: Non-cardiac pain (mod-severe) Hydrocodone Bitart/Acetaminophen ([place] 5mg-325mg) 1 - 2 tablet PO Q4H PRN PRN PRN Reason: Moderate-severe pain Last Admin: 11/25/17 05:25 Dose: 2 tablet Al Hydroxide/Mg Hydroxide (Mylanta Ii) 15 - 30 ml PO Q4H PRN PRN PRN Reason: INDIGESTION Aspirin (Aspirin, Baby) 81 mg PO QHS [facility] Atorvastatin Calcium (Lipitor) 20 mg PO QCOX [place] Last Admin: 11/24/17 22:58 Dose: Not Given Enoxaparin Sodium (Lovenox) 40 mg SC DAILY@0600 [facility] Last Admin: 11/25/17 06:35 Dose: 40 mg Gabapentin (Neurontin) 300 mg PO QHS [facility] Last Admin: 11/24/17 22:58 Dose: Not Given Hydralazine HCl (Apresoline) 10 mg IV Q4H PRN PRN PRN Reason: SBP > 160 Cefazolin Sodium () 1 gm in 50 mls @ 100 mls/hr IV Q8 [facility] Stop: 11/25/17 22:00 Last Admin: 11/25/17 06:32 Dose: 100 mls/hr Sodium Chloride () 1,000 mls @ 125 mls/hr IV .Q8H DENNISE Last Admin: 11/25/17 00:00 Dose: 125 mls/hr Sodium Chloride () 250 mls @ 15 mls/hr IV .[id number] PRN PRN Reason: SALINE FLUSH Insulin Aspart (Novolog Flexpen (Bkc)) 0 units SC ACHS DENNISE PRN Reason: Protocol Last Admin: 11/25/17 06:38 Dose: 1 units Insulin Aspart (Novolog Flexpen (Bkc)) 12 units SC LUNCH DENNISE Insulin Aspart (Novolog Flexpen (Bkc)) 13 units SC BREAKFAST DENNISE Insulin Aspart (Novolog Flexpen (Bkc)) 13 units SC DINNER DENNISE Insulin Human NPH (Humulin N (Bkc)) 22 units SC DAILY DENNISE Insulin Human NPH (Humulin N (Bkc)) 24 units SC QHS [facility] Lisinopril (Zestril) 20 mg PO DAILY [facility] Magnesium Hydroxide (Milk Of Magnesia) 30 ml PO DAILY PRN PRN PRN Reason: Constipation Morphine Sulfate (Morphine) 1 - 2 mg IV Q4H PRN PRN PRN Reason: PAIN Ondansetron HCl (Zofran) 4 mg IV Q8H PRN PRN PRN Reason: NAUSEA/VOMITING Polyethylene Glycol (Miralax) 17 gm PO DAILY PRN PRN PRN Reason: Constipation Polysaccharide Iron Complex (Ferrex 150) 150 mg PO DAILYCM [facility] Promethazine HCl (Phenergan (Ll)) 6.25 mg IV Q4H PRN PRN PRN Reason: NAUSEA/VOMITING Sertraline HCl (Zoloft) 50 mg PO DAILY [facility] Sodium Chloride () 5 - 30 ml IV UD PRN PRN Reason: SALINE FLUSH Last Admin: 11/25/17 00:05 Dose: 7 ml Temazepam (Restoril) 15 mg PO QHS PRN PRN PRN Reason: insomnia Assessment/Plan 51 y/o female with PMHx of Morbid Obesity, Hypertension, Diabetes mellitus type II, admitted on 11/24/17 after planned ankle arthrodesis with internal and external fixation per Dr. 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 1. 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 Podiatry is following and actively managing. Remains on pain medications, will continue to monitor. 2. Acute kidney injury, Cr 1.24, likely secondary to dehydration/fluid shifts, improved to 1.19, on IV fluids, follow-up on BMP. 3. Hypertension, controlled, on lisinopril, PRN hydralazine. 4. Hyperlipidemia, on statin. 5. Depression, on zoloft 6. Diabetes mellitus type II, blood sugars are stable, on NPH insulin, premeal novolog insulin, ADA diet, accu checks with insulin sliding scale. 7. Acute on chronic normocytic Anemia/iron deficiency anemia, drop on Hb from 10.1 to 8.6, po iron, will continue to monitor. 8. Morbid Obesity, weight loss and lifestyle changes encouraged, nutrition consulted. 9. DVT Prophylaxis - SCD to unaffected extremity, lovenox. Code Visit Inpatient E&M: 90899 Subs Hosp L2
[2017-11-25] MEDS: Sertraline 50 MG Tablet PO (09:11)
[2017-11-25] MEDS: Aspirin 81 MG TAB.CHEW PO ×2 (09:11→22:35)
[2017-11-25] MEDS: Lisinopril 20 MG Tablet PO (09:11)
[2017-11-25] MEDS: 0.9% Normal Saline 1,000 ML 125 ML IV ×3 (09:11→16:33)
[2017-11-25] MEDS: Insulin NPH Human 100 UNITS/ML PEN 22 UNITS SC (09:12)
[2017-11-25] MEDS: Iron Polysaccharide Complex 150 MG CAPSULE PO (09:12)
--- NOTE | 2017-11-25 09:28 | PCM.PROGNOTE ---
Subjective: This 61-year-old patient was seen bedside postoperative day #1 revisional ankle arthrodesis with internal/external fixation of the left lower extremity for treatment of nonunion and avascular necrosis. The pain is rated as a 7 out of 10 this morning. She denies fever, chill, nausea, vomiting, urinary retention, chest pain, shortness of breath. She denies constipation however has not had a bowel movement since surgery. She is eating breakfast at this time and her mother's bedside. - Physical Exam General: Alert, Oriented x3, Cooperative Extremities: No cyanosis, Capillary Refill Less than 3 Seconds Skin: - - Postoperative dressing is clean dry and intact and no outer stricture is noted. No odor is noted Musculoskeletal: - - Active range of motion digits left foot Neurological: - - Lack of sensation in the left toes Psych/Mental Status: Normal Affect, Appropriate Vital Signs Temp Pulse Resp BP Pulse Ox 99.1 F 111 H 16 111/56 L 98 11/25/17 07:40 11/25/17 07:40 11/25/17 07:40 11/25/17 07:40 11/25/17 08:20 Oxygen Flow Rate 2 Oxygen Delivery Method Nasal Cannula Weight: 136.7 kg Body Mass Index (BMI) 44.5 Finger Stick Blood Glucose 258 Intake and Output for Last 24 Hours 11/23/17 11/24/17 11/25/17 23:59 23:59 23:59 Intake Total 5500 / 5500 1212 / 1212 Output Total 350 / 350 Balance 5150 / 5150 1212 / 1212 Laboratory Tests Past 24 Hrs 11/24/17 11/24/17 11/24/17 11:05 13:03 23:06 WBC RBC Hgb Hct MCV MCH MCHC RDW RDW Differential Plt Count MPV Immature Gran % (Auto) Neut % (Auto) Lymph % (Auto) [place] % (Auto) Eos % (Auto) Baso % (Auto) Absolute Neuts (auto) Absolute Lymphs (auto) Total Counted Sodium 139 Potassium 4.9 Chloride 108 H Carbon Dioxide 22.0 Anion Gap 9 BUN 24 H Creatinine 1.24 H Estim Creat Clear Calc 54.83 Est GFR (MDRD) Af Amer 58 L Est GFR (MDRD) Non-Af 48 L BUN/Creatinine Ratio 19.4 Glucose 239 H Hemoglobin A1c 5.8 Calcium 8.1 L Magnesium 1.9 Blood Type O POSITIVE Antibody Screen NEGATIVE 11/24/17 23:34 WBC 12.8 H RBC 3.84 L Hgb 10.1 L Hct 31.8 L MCV 82.8 MCH 26.3 L MCHC 31.8 L RDW 16.5 H RDW Differential 48.7 H Plt Count 218 MPV 11.7 Immature Gran % (Auto) 0.200 Neut % (Auto) 89.7 H Lymph % (Auto) 5.4 L [place] % (Auto) 4.4 Eos % (Auto) 0.1 Baso % (Auto) 0.2 Absolute Neuts (auto) 11.5 H Absolute Lymphs (auto) 0.69 L Total Counted Not Reportable Sodium Potassium Chloride Carbon Dioxide Anion Gap BUN Creatinine Estim Creat Clear Calc Est GFR (MDRD) Af Amer Est GFR (MDRD) Non-Af BUN/Creatinine Ratio Glucose Hemoglobin A1c Calcium Magnesium Blood Type Antibody Screen POC Glucose 11/25/17 11/25/17 11/24/17 06:38 00:03 20:31 POC Glucose 162 H 215 H 258 H 11/24/17 11:22 POC Glucose 116 H Assessment/Plan Postoperative day #1 revisional arthrodesis with internal and external fixation for treatment of nonunion and avascular necrosis and hardware failure Diabetes DVT prophylaxis Other comorbidities: Obesity, anemia, hypertension, hyperlipidemia, depression I reviewed and discussed the patient surgical intervention performed yesterday and ongoing treatment recommendations. I reviewed her diagnostic data. It is noted that she does have some mild leukocytosis. This will be monitored and this is likely secondary to the surgical and anesthesia stress. Her hemoglobin post operative was 10.1 and this will also be monitored for potential need for blood transfusion. She appears to be fairly asymptomatic at this time. Her vitals remained stable. Her intraoperative specimen sent to microbiology and pathology are pending. She continues on IV cefazolin for a few courses. She is advised to ice and elevate the left lower extremity for pain and inflammation management. She just completed her session with physical therapy. She is unable to tolerate morphine and we discussed additional options for pain control. I recommend transitioning her to oxycodone use and remove the IV pain medications as tolerated. I also offered her up to a couple courses of Toradol. This will be short-term for initial pain control and I recommend routine use of this while she is on blood thinning medication. Lovenox will be initiated today for DVT prophylaxis. Incentive spirometer use is encouraged in order. To continue to work with physical and occupational therapy for deconditioning prevention and for additional gait training. Strict nonweightbearing to left lower extremity is imperative. Medical management with medicine team is appreciated. I recommended rehabilitation placement to optimize postoperative success. She has not been able to care for herself at home after previous postoperative sessions in a safe manner. Please not hesitate to call if you have any questions. Kait West, [facility]
[2017-11-25 09:41] LABS: Absolute Neutrophil Count 7.1 X10^3/uL (2.0-7.7); Basophil# 0.03 X10^3/uL; Basophil% 0.3 % (0-1); Eosinophil# 0.01 X10^3/uL; Eosinophils% 0.1 % (0-5); Hematocrit 27.7 % (37-47); Hemoglobin 8.6 g/dl (12.0-15.0); Lymphocyte % 15.9 % (19-41); Mean Corpuscular Hgb 26.1 pg (27.0-32.0); Mean Corpuscular Volume 84.2 fL (81-99); Mean Platelet Vol. 10.9 fl (6.2-12.0); Monocyte# 0.79 X10^3/uL; Monocyte% 8.4 % (0-10); Neutrophil # 7.06 X10^3/uL (2.7-7.7); Neutrophil % 75.1 % (47-70); Platelet Count 214 K/mm3 (150-450); RBC Distribution Width CV 16.5 % (11.6-14.6); RBC Distribution Width SD 48.8 fl (35.1-43.9); Red Blood Count 3.29 M/mm3 (4.2-5.4); White Blood Count 9.4 K/mm3 (4.4-11.0)
[2017-11-25 09:44] LABS: POSITIVE COUNT NO; POSITIVE DIFFERENTIAL NO; POSITIVE MORPHOLOGY NO
[2017-11-25 09:50] LABS: Anion Gap 8 (5-15); BUN 22 mg/dL (7-18); BUN/Creat Ratio 18.5 RATIO (10-20); Calcium,Total 7.9 mg/dL (8.5-10.1); Chloride 109 mmol/L (98-107); Creatinine, Serum 1.19 mg/dL (0.55-1.02); EST Glomerular Filtration Rate 50 mL/min (>60); Est Glom Filt Rate - Afr Amer 61 mL/min (>60); Estimated Creatinine Clearance 57.14 ml/min; Glucose 180 mg/dL (74-106); Potassium 4.4 mmol/L (3.5-5.1); Sodium Level 142 mmol/L (136-145)
[2017-11-25] MEDS: Ketorolac 30 MG/ML Syringe IV (10:10)
[2017-11-25 12:36] LABS: Bedside Glucose 147 mg/dL (70-110)
--- NOTE | 2017-11-25 14:18 | CASEMGMT ---
See assessment. SW spoke w/pt in room in regard to discharge plan. Pt states has had 6 surgeries on her ankle, until now has been able to return home. 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 SW gave pt a list of SNF's that take pt's insurance in both [facility]. SW explained to look at the list this weekend and pick a couple of backup choices in the event [place] does not have a bed. SW explained referrals will be sent Monday and once we have a bed the facility will go to insurance for precert. Pt states understanding. SW did also offer support to pt as she expressed frustration w/this being her 6th surgery. SW will continue to follow, will make referral and talk w/pt again on Monday. DALTON Pearson, HOSPICE REGISTERED NURSE
[2017-11-25 15:07] VITALS: BP 111/60; PULSE 102; RESP 16; TEMP 36.8; O2SAT 100
[2017-11-25 16:42] LABS: Bedside Glucose 98 mg/dL (70-110)
[2017-11-25 20:34] VITALS: BP 115/54; PULSE 65; RESP 19; TEMP 37.4; O2SAT 99
[2017-11-25] MEDS: Atorvastatin Calcium 20 MG Tablet PO (22:35)
[2017-11-25] MEDS: Gabapentin 300 MG Capsule PO (22:35)
[2017-11-25] MEDS: Insulin NPH Human 100 UNITS/ML PEN 24 UNITS SC (22:36)
[2017-11-25] MEDS: oxyCODONE 5 MG Tablet PO (22:42)
[2017-11-25 23:16] LABS: Bedside Glucose 246 mg/dL (70-110)
[2017-11-26] MEDS: 0.9% Normal Saline 1,000 ML 125 ML IV ×2 (01:30→08:19)
[2017-11-26] MEDS: oxyCODONE 5 MG Tablet PO ×4 (03:30→20:13)
[2017-11-26 03:32] VITALS: BP 130/63; PULSE 88; RESP 17; TEMP 36.8; O2SAT 98
[2017-11-26 06:18] LABS: Absolute Lymphocyte Count 1.54 X10^3/ul (0.83-4.51); Absolute Neutrophil Count 6.4 X10^3/uL (2.0-7.7); Basophil# 0.03 X10^3/uL; Basophil% 0.3 % (0-1); Eosinophil# 0.22 X10^3/uL; Eosinophils% 2.4 % (0-5); Hematocrit 27.7 % (37-47); Hemoglobin 8.4 g/dl (12.0-15.0); Lymphocyte # 1.54 X10^3/ul (4.0); Mean Corp Hgb Conc 30.3 g/gl (32-36); Mean Corpuscular Hgb 25.5 pg (27.0-32.0); Mean Corpuscular Volume 84.2 fL (81-99); Mean Platelet Vol. 10.7 fl (6.2-12.0); Monocyte# 0.89 X10^3/uL; Monocyte% 9.8 % (0-10); Neutrophil # 6.36 X10^3/uL (2.7-7.7); Neutrophil % 70.4 % (47-70); Platelet Count 175 K/mm3 (150-450); RBC Distribution Width CV 16.8 % (11.6-14.6); RBC Distribution Width SD 52.5 fl (35.1-43.9); Red Blood Count 3.29 M/mm3 (4.2-5.4); White Blood Count 9.1 K/mm3 (4.4-11.0)
[2017-11-26 06:28] LABS: POSITIVE COUNT NO; POSITIVE DIFFERENTIAL NO; POSITIVE MORPHOLOGY NO
[2017-11-26 06:33] LABS: Anion Gap 6 (5-15); BUN 18 mg/dL (7-18); Calcium,Total 7.6 mg/dL (8.5-10.1); Chloride 111 mmol/L (98-107); Creatinine, Serum 0.95 mg/dL (0.55-1.02); EST Glomerular Filtration Rate 65 mL/min (>60); Est Glom Filt Rate - Afr Amer 79 mL/min (>60); Estimated Creatinine Clearance 71.57 ml/min; Glucose 107 mg/dL (74-106); Potassium 4.1 mmol/L (3.5-5.1); Sodium Level 139 mmol/L (136-145)
[2017-11-26] MEDS: Enoxaparin 40 MG/0.4 ML Syringe SC (07:00)
[2017-11-26 07:12] VITALS: BP 121/56; PULSE 87; RESP 18; TEMP 37; O2SAT 100
--- NOTE | 2017-11-26 07:22 | PCM.PN.HOSP ---
Subjective: Patient was seen and examined. She complains of pain inthe left leg. Denies fever or chills or dizziness or palpitations. No other acute events overnight. Objective: PHYSICAL EXAM: General: Alert, Oriented x3, Cooperative, No apparent distress, - -off oxygen HEENT: Atraumatic, PERRLA, EOMI, Normocephalic Oral: Moist Mucosa Neck: Supple Lungs: Clear to auscultation, Normal air movement Cardiovascular: Regular rate, Regular Rhythm, Normal S1, Normal S2, No murmurs Abdomen: Bowel Sounds Present, Soft, Non Tender, Non-Distended, No Hepato-splenomegaly Extremities: No edema, - - Left foot and lower leg in external fixators with georges wraps around Skin: No rashes Musculoskeletal: No Tenderness to Palpation of Joints or Extremities Lymphatic: No Cervical, Supraclavicular, or Inguinal Adenopathy Neurological: Cranial nerves II-XII grossly intact, Neuro grossly intact Psych/Mental Status: Normal Affect, Appropriate Vitals/I&O's: Vital Signs Temp Pulse Resp BP Pulse Ox 98.6 F 87 18 121/56 H 100 11/26/17 07:12 11/26/17 07:12 11/26/17 07:12 11/26/17 07:12 11/26/17 07:12 Oxygen Flow Rate 2 Oxygen Delivery Method Room Air Weight: 136.7 kg Body Mass Index (BMI) 44.5 Finger Stick Blood Glucose 258 Intake and Output for Last 24 Hours 11/24/17 11/25/17 11/26/17 23:59 23:59 23:59 Intake Total 5500 / 5500 1212 / 1212 3512 / 3512 Output Total 350 / 350 800 / 800 Balance 5150 / 5150 1212 / 1212 2712 / 2712 Microbiology Past 72 Hours 11/24/17 Unknown Biopsy - Ankle Gram Stain - Final 11/24/17 Unknown Biopsy - Ankle Wound Culture - Preliminary No growth-Final to follow Laboratory Results 11/25/17 09:25: WBC 9.4, RBC 3.29 L, Hgb 8.6 L, Hct 27.7 L, MCV 84.2, MCH 26.1 L, MCHC 31.0 L, RDW 16.5 H, RDW Differential 48.8 H, Plt Count 214, MPV 10.9, Immature Gran % (Auto) 0.200, Neut % (Auto) 75.1 H, Lymph % (Auto) 15.9 L, [place] % (Auto) 8.4, Eos % (Auto) 0.1, Baso % (Auto) 0.3, Absolute Neuts (auto) 7.1, Absolute Lymphs (auto) 1.50, Total Counted Not Reportable 11/25/17 09:25: Sodium 142, Potassium 4.4, Chloride 109 H, Carbon Dioxide 25.0, Anion Gap 8, BUN 22 H, Creatinine 1.19 H, Estim Creat Clear Calc 57.14, Est GFR (MDRD) Af Amer 61, Est GFR (MDRD) Non-Af 50 L, BUN/Creatinine Ratio 18.5, Glucose 180 H, Calcium 7.9 L 11/25/17 12:21: POC Glucose 147 H 11/25/17 16:32: POC Glucose 98 11/25/17 22:25: POC Glucose 246 H 11/26/17 05:33: WBC 9.1, RBC 3.29 L, Hgb 8.4 L, Hct 27.7 L, MCV 84.2, MCH 25.5 L, MCHC 30.3 L, RDW 16.8 H, RDW Differential 52.5 H, Plt Count 175, MPV 10.7, Immature Gran % (Auto) 0.100, Neut % (Auto) 70.4 H, Lymph % (Auto) 17.0 L, [place] % (Auto) 9.8, Eos % (Auto) 2.4, Baso % (Auto) 0.3, Absolute Neuts (auto) 6.4, Absolute Lymphs (auto) 1.54, Total Counted Not Reportable 11/26/17 05:33: Sodium 139, Potassium 4.1, Chloride 111 H, Carbon Dioxide 22.0, Anion Gap 6, BUN 18, Creatinine 0.95, Estim Creat Clear Calc 71.57, Est GFR (MDRD) Af Amer 79, Est GFR (MDRD) Non-Af 65, BUN/Creatinine Ratio 19.0, Glucose 107 H, Calcium 7.6 L Current Medications Acetaminophen (Tylenol) 650 mg PO Q6H PRN PRN PRN Reason: Non-cardiac pain (mod-severe) Al Hydroxide/Mg Hydroxide (Mylanta Ii) 15 - 30 ml PO Q4H PRN PRN PRN Reason: INDIGESTION Aspirin (Aspirin, Baby) 81 mg PO QHS [facility] Last Admin: 11/25/17 22:35 Dose: 81 mg Atorvastatin Calcium (Lipitor) 20 mg PO QHS [facility] Last Admin: 11/25/17 22:35 Dose: 20 mg Enoxaparin Sodium (Lovenox) 40 mg SC DAILY@0600 [facility] Last Admin: 11/26/17 07:00 Dose: 40 mg Gabapentin (Neurontin) 300 mg PO QHS [facility] Last Admin: 11/25/17 22:35 Dose: 300 mg Hydralazine HCl (Apresoline) 10 mg IV Q4H PRN PRN PRN Reason: SBP > 160 Sodium Chloride () 1,000 mls @ 125 mls/hr IV .Q8H [facility] Last Admin: 11/26/17 01:30 Dose: 125 mls/hr Sodium Chloride () 250 mls @ 15 mls/hr IV .[id number] PRN PRN Reason: SALINE FLUSH Insulin Aspart (Novolog Flexpen (Bkc)) 0 units SC ACHS [facility] PRN Reason: Protocol Last Admin: 11/26/17 07:03 Dose: Not Given Insulin Aspart (Novolog Flexpen (Bkc)) 12 units SC LUNCH [facility] Last Admin: 11/25/17 12:24 Dose: 12 u Insulin Aspart (Novolog Flexpen (Bkc)) 13 units SC BREAKFAST [facility] Last Admin: 11/25/17 09:12 Dose: 13 u Insulin Aspart (Novolog Flexpen (Bkc)) 13 units SC DINNER [facility] Last Admin: 11/25/17 17:11 Dose: Not Given Insulin Human NPH (Humulin N (Bkc)) 22 units SC DAILY [facility] Last Admin: 11/25/17 09:12 Dose: 22 u Insulin Human NPH (Humulin N (Bkc)) 24 units SC QHS [facility] Last Admin: 11/25/17 22:36 Dose: 24 u Ketorolac Tromethamine (Toradol) 30 mg IV Q8H PRN PRN PRN Reason: PAIN Stop: 11/26/17 10:00 Last Admin: 11/25/17 10:10 Dose: 30 mg Lisinopril (Zestril) 20 mg PO DAILY [facility] Last Admin: 11/25/17 09:11 Dose: 20 mg Magnesium Hydroxide (Milk Of Magnesia) 30 ml PO DAILY PRN PRN PRN Reason: Constipation Ondansetron HCl (Zofran) 4 mg IV Q8H PRN PRN PRN Reason: NAUSEA/VOMITING Oxycodone HCl (Oxyir) 5 mg PO Q4H PRN PRN PRN Reason: SEVERE PAIN (6-10/10) Last Admin: 11/26/17 07:14 Dose: 5 mg Polyethylene Glycol (Miralax) 17 gm PO DAILY PRN PRN PRN Reason: Constipation Polysaccharide [facility] ([facility]rex 150) [facility] Last Admin: 11/25/17 09:12 Dose: 150 mg Promethazine HCl (Phenergan (Ll)) 6.25 mg IV Q4H PRN PRN PRN Reason: NAUSEA/VOMITING Sertraline HCl (Zoloft) 50 mg PO DAILY [facility] Last Admin: 11/25/17 09:11 Dose: 50 mg Sodium Chloride () 5 - 30 ml IV UD PRN PRN Reason: SALINE FLUSH Last Admin: 11/25/17 00:05 Dose: 7 ml Temazepam (Restoril) 15 mg PO QHS PRN PRN PRN Reason: insomnia Assessment/Plan 51 y/o female with PMHx of Morbid Obesity, Hypertension, Diabetes mellitus type II, admitted on 11/24/17 after planned ankle arthrodesis with internal and external fixation per Dr. 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 1. 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 Cultures are pending, Podiatry is following and actively managing. on oxycodone prn, will continue to monitor. 2. Acute kidney injury, admitting Cr was 1.24, now 0.95, secondary to dehydration/fluid shifts, resolved with IV fluids, will dc IV fluids, BMP in am. 3. Hypertension, controlled, on lisinopril, PRN hydralazine. 4. Hyperlipidemia, on statin. 5. Depression, on zoloft 6. Diabetes mellitus type II, blood sugars are stable, on NPH insulin, premeal novolog insulin, ADA diet, accu checks with insulin sliding scale. 7. Acute on chronic normocytic Anemia/iron deficiency anemia secondary to acute blood loss in surgery and hemodilution from IV fluids, Hb is stable at 8.4, on po iron, will continue to monitor. 8. Morbid Obesity, weight loss and lifestyle changes encouraged, nutrition consulted. 9. DVT Prophylaxis - SCD to unaffected extremity, lovenox. 10. Disposition: Pending dc to SNF Code Visit Inpatient E&M: 64989 Subs Hosp L2
[2017-11-26 07:24] VITALS: O2SAT 95
[2017-11-26 07:30] LABS: Bedside Glucose 112 mg/dL (70-110)
[2017-11-26] MEDS: Iron Polysaccharide Complex 150 MG CAPSULE PO (08:19)
[2017-11-26] MEDS: Ketorolac 30 MG/ML Syringe IV (08:47)
[2017-11-26] MEDS: Sertraline 50 MG Tablet PO (10:40)
[2017-11-26] MEDS: Insulin NPH Human 100 UNITS/ML PEN 22 UNITS SC (10:40)
[2017-11-26] MEDS: Lisinopril 20 MG Tablet PO (10:40)
[2017-11-26 10:46] LABS: Bedside Glucose 147 mg/dL (70-110)
[2017-11-26 12:26] LABS: Bedside Glucose 124 mg/dL (70-110)
[2017-11-26 14:15] VITALS: BP 106/45; PULSE 105; RESP 16; TEMP 37.2; O2SAT 95
--- NOTE | 2017-11-26 16:30 | NURSING ---
DR. DENNIS IN TO TAKE DOWN LFT ANKLE DRSG. MULTIPLE PINS AND RODS PIERCING LEG. NWB FOR AN EXTENDED AMT OF TIME.
--- NOTE | 2017-11-26 16:45 | PCM.PROGNOTE ---
Subjective: This 51-year-old diabetic female was seen bedside postoperative day #2 revision ankle arthrodesis with internal/external fixation of the left lower extremity for treatment of nonunion and avascular necrosis. The pain is rated as a 5 out of 10 this afternoon during the dressing change. She denies fever, chill, nausea, vomiting, urinary retention, chest pain, shortness of breath. She denies constipation however has not had a bowel movement since surgery. She has improved her leg elevation since yesterday. - Physical Exam General: Alert, Oriented x3, Cooperative HEENT: Atraumatic Extremities: No cyanosis, Capillary Refill Less than 3 Seconds - All digits of the left foot, No Calf Tenderness - Negative Gabriel sign bilateral, Edema - Edema noted to left lower extremity consistent with postsurgical changes. There is plenty of room between the leg and the rings spanning the limb., Peripheral Pulses Normal - Palpable dorsalis pedis pulse and nonpalpable posterior tibial pulse secondary to edema left lower extremity, - Skin: Incision - Well aligned and coapted without gapping to the lateral ankle, proximal anterior leg at the bone marrow aspirate site, and the anterior medial ankle. There is no erythema, no maceration, no odor, no streaking, no necrosis, no eschar formation. There is serous sanguinous and hematogenous drainage noted to the inner layers the dressing only. There is no bogginess or crepitus palpated. A hematoma is not suspected. The pin sites are clean without signs of infection or active bleeding either. Musculoskeletal: Muscle Wasting, Tenderness - Surgical site palpation and austen-pin site palpation consistent with postsurgical changes., - - Active range of motion digits ?5 left foot. The ankle remains in a rectus position upon the left leg. No motion is available at the arthrodesis site. The external fixation device is well aligned and stable without loosening. Neurological: - - Lack of epicritic sensation to light touch to the digits and the foot improved from yesterday Psych/Mental Status: Normal Affect, Appropriate Vital Signs Temp Pulse Resp BP Pulse Ox 98.9 F 105 H 16 106/45 L 95 11/26/17 14:15 11/26/17 14:15 11/26/17 14:15 11/26/17 14:15 11/26/17 14:15 Oxygen Flow Rate 2 Oxygen Delivery Method Room Air Weight: 136.7 kg Body Mass Index (BMI) 44.5 Finger Stick Blood Glucose 258 Intake and Output for Last 24 Hours 11/24/17 11/25/17 11/26/17 23:59 23:59 23:59 Intake Total 5500 / 5500 1212 / 1212 3512 / 3512 Output Total 350 / 350 800 / 800 Balance 5150 / 5150 1212 / 1212 2712 / 2712 Microbiology Past 72 Hours 11/24/17 Unknown Gram Stain - Final Biopsy - Ankle Wound Culture - Preliminary No growth-Final to follow Laboratory Tests Past 24 Hrs 11/26/17 11/26/17 05:33 05:33 WBC 9.1 RBC 3.29 L Hgb 8.4 L Hct 27.7 L MCV 84.2 MCH 25.5 L MCHC 30.3 L RDW 16.8 H RDW Differential 52.5 H Plt Count 175 MPV 10.7 Immature Gran % (Auto) 0.100 Neut % (Auto) 70.4 H Lymph % (Auto) 17.0 L Blackford % (Auto) 9.8 Eos % (Auto) 2.4 Baso % (Auto) 0.3 Absolute Neuts (auto) 6.4 Absolute Lymphs (auto) 1.54 Total Counted Not Reportable Sodium 139 Potassium 4.1 Chloride 111 H Carbon Dioxide 22.0 Anion Gap 6 BUN 18 Creatinine 0.95 Estim Creat Clear Calc 71.57 Est GFR (MDRD) Af Amer 79 Est GFR (MDRD) Non-Af 65 BUN/Creatinine Ratio 19.0 Glucose 107 H Calcium 7.6 L POC Glucose 11/26/17 11/26/17 11/26/17 12:08 10:39 07:03 POC Glucose 124 H 147 H 112 H 11/25/17 22:25 POC Glucose 246 H Assessment/Plan Postoperative day # 2 revision arthrodesis with internal and external fixation for treatment of nonunion and avascular necrosis and hardware failure Diabetes DVT prophylaxis Other comorbidities: Obesity, anemia, hypertension, hyperlipidemia, depression I reviewed and discussed her care plan and treatment recommendations. Her vitals remained stable and her pain is better controlled today. Her hemoglobin post operative is decreased and she will also be monitored for potential need for blood transfusion. She appears to be fairly asymptomatic at this time. Her intraoperative specimen sent to microbiology and pathology are still pending pending. There is no bacterial growth so far. She continues on IV cefazolin for a few courses. Her postoperative dressing was changed today and the leg was cleansed with chlorhexidine antimicrobial wipes. A new dressing consisting of Xeroform to the pin sites and Betadine soaked gauze to the main lateral incision site were applied. There are no acute signs of infection in the incision site remains well coapted and aligned. This was also padded well with a multilayer compression dressing that was applied underneath the external fixation device to aid in edema reduction. The entire frame was next well-padded with multiple Kerlix rolls and covered with Jeferson wraps to prevent contamination. She was advised to keep this clean dry and intact. I plan on doing an additional postsurgical check and dressing change midweek or sooner if there are any questions or concerns. She was advised to ice and elevate the left lower extremity for pain and inflammation management. She is provided with a couple courses of Toradol and will further continue on oral oxycodone moving forward. To continue incentive spirometer really while awake. To continue Lovenox for DVT prophylaxis. To continue to work with physical and occupational therapy for deconditioning prevention and for additional gait training. Strict nonweightbearing to left lower extremity is imperative. Medical management with medicine team is appreciated. I recommended rehabilitation placement to optimize postoperative success. She has not been able to care for herself at home after previous postoperative sessions in a safe manner. Please do not hesitate to call if you have any questions. Kait West, [facility] [phone]
[2017-11-26 16:56] LABS: Bedside Glucose 102 mg/dL (70-110)
[2017-11-26 20:01] VITALS: BP 127/59; PULSE 114; RESP 19; TEMP 37.9; O2SAT 98
[2017-11-26] MEDS: Acetaminophen 325 MG Tablet 650 MG PO (20:13)
[2017-11-26] MEDS: BENZOCAINE/MENTHOL 1 LOZENGE MUCOUS MEM (20:14)
[2017-11-26] MEDS: Gabapentin 300 MG Capsule PO (21:49)
[2017-11-26] MEDS: Aspirin 81 MG TAB.CHEW PO (21:49)
[2017-11-26] MEDS: Insulin NPH Human 100 UNITS/ML PEN 24 UNITS SC (21:49)
[2017-11-26] MEDS: Atorvastatin Calcium 20 MG Tablet PO (21:49)
[2017-11-26 22:16] LABS: Bedside Glucose 128 mg/dL (70-110)
[2017-11-27 02:22] VITALS: BP 133/66; PULSE 64; RESP 16; TEMP 37.3; O2SAT 96
[2017-11-27] MEDS: oxyCODONE 5 MG Tablet PO ×4 (02:25→22:20)
[2017-11-27] MEDS: BENZOCAINE/MENTHOL 1 LOZENGE MUCOUS MEM ×2 (02:27→06:49)
[2017-11-27] MEDS: Enoxaparin 40 MG/0.4 ML Syringe SC (06:51)
[2017-11-27 08:16] LABS: Bedside Glucose 95 mg/dL (70-110)
[2017-11-27] MEDS: Iron Polysaccharide Complex 150 MG CAPSULE PO (08:16)
[2017-11-27] MEDS: Sertraline 50 MG Tablet PO (08:17)
[2017-11-27] MEDS: Insulin NPH Human 100 UNITS/ML PEN 22 UNITS SC (08:17)
[2017-11-27] MEDS: Lisinopril 20 MG Tablet PO (08:17)
[2017-11-27] MEDS: Acetaminophen 325 MG Tablet 650 MG PO ×3 (08:28→22:20)
[2017-11-27 08:35] VITALS: BP 141/56; PULSE 97; RESP 18; TEMP 36.7; O2SAT 98
[2017-11-27] MEDS: Polyethylene Glycol 3350 17 GM PACKET PO (08:42)
--- NOTE | 2017-11-27 10:00 | CASEMGMT ---
Social Work: TC to Mar[facility] at [facility]. [facility] requesting clinicals be faxed. Clinicals faxed. Return call from [facility] stating that they are able to accept patient and will begin precert. TC to Anais Montana RN CM to notify that precert will be started at [facility]. PLAN: Patient to be discharged to [facility] once precert is obtained. DALTON Medeiros
[2017-11-27 12:06] LABS: Bedside Glucose 100 mg/dL (70-110)
--- NOTE | 2017-11-27 13:52 | CASEMGMT ---
Social Work Note Pt called SW and inquired if rehab would be paid for here at the hospital. Explain that the unit here at the hospital does not accept Medicaid and that [facility], the choice she voiced over the weekend, was able to accept, but that we could not transfer her until we had insurance authorization. Expressed that SW did not anticipate receiving authorization before tomorrow, 11/28. Understanding expressed. SW to continue to follow and assist with discharge planning. Plan: [facility] pending pre-cert. Sandi Alvarado, WIND TURBINE ERECTOR, MESSAGE BROKER DEVELOPER
--- NOTE | 2017-11-27 14:13 | PN_ITS ---
Subjective: CC: Left ankle surgery. She reports less pain today, she denies any chest pain shortness of breath or palpitations. She is awaiting precert to discharge to [facility]. No acute events reported overnight. Vitals/I&O's: Vital Signs Temp Pulse Resp BP Pulse Ox 98.0 F 97 18 141/56 H 98 11/27/17 08:35 11/27/17 08:35 11/27/17 08:35 11/27/17 08:35 11/27/17 08:35 Oxygen Flow Rate 2 Oxygen Delivery Method Room Air Weight: 136.7 kg Body Mass Index (BMI) 44.5 Finger Stick Blood Glucose 258 Intake and Output for Last 24 Hours 11/25/17 11/26/17 11/27/17 23:59 23:59 23:59 Intake Total 1212 / 1212 3512 / 3512 900 / 900 Output Total 800 / 800 700 / 700 Balance 1212 / 1212 2712 / 2712 200 / 200 General: Alert, Oriented x3 HEENT: Atraumatic Oral: Moist Mucosa Neck: Supple, No JVD Lungs: Clear to auscultation Cardiovascular: Regular rate, Normal S1, Normal S2 Abdomen: Bowel Sounds Present, Soft, Non Tender, Non-Distended Microbiology Past 72 Hours 11/24/17 Unknown Biopsy - Ankle Gram Stain - Final 11/24/17 Unknown Biopsy - Ankle Wound Culture - Preliminary Staphylococcus species 11/24/17 Unknown Biopsy - Ankle Anaerobic Culture - Final No anaerobic bacteria isolated. Laboratory Results 11/26/17 16:46: POC Glucose 102 11/26/17 21:45: POC Glucose 128 H 11/27/17 08:10: POC Glucose 95 11/27/17 12:02: POC Glucose 100 Current Medications Acetaminophen (Tylenol) 650 mg PO Q6H PRN PRN PRN Reason: Non-cardiac pain (mod-severe) Last Admin: 11/27/17 08:28 Dose: 650 mg Al Hydroxide/Mg Hydroxide (Mylanta Ii) 15 - 30 ml PO Q4H PRN PRN PRN Reason: INDIGESTION Aspirin (Aspirin, Baby) 81 mg PO QHS [facility] Last Admin: 11/26/17 21:49 Dose: 81 mg Atorvastatin Calcium (Lipitor) 20 mg PO QHS [facility] Last Admin: 11/26/17 21:49 Dose: 20 mg Enoxaparin Sodium (Lovenox) 40 mg SC DAILY@0600 [facility] Last Admin: 11/27/17 06:51 Dose: 40 mg Gabapentin (Neurontin) 300 mg PO QHS [facility] Last Admin: 11/26/17 21:49 Dose: 300 mg Hydralazine HCl (Apresoline) 10 mg IV Q4H PRN PRN PRN Reason: SBP > 160 Sodium Chloride () 250 mls @ 15 mls/hr IV .[id number] PRN PRN Reason: SALINE FLUSH Insulin Aspart (Novolog Flexpen (Bkc)) 0 units SC ACHS [facility] PRN Reason: Protocol Last Admin: 11/27/17 12:05 Dose: Not Given Insulin Aspart (Novolog Flexpen (Bkc)) 12 units SC LUNCH [facility] Last Admin: 11/27/17 12:07 Dose: Not Given Insulin Aspart (Novolog Flexpen (Bkc)) 13 units SC BREAKFAST [facility] Last Admin: 11/27/17 08:16 Dose: 13 u Insulin Aspart (Novolog Flexpen (Bkc)) 13 units SC DINNER [facility] Last Admin: 11/26/17 17:34 Dose: 13 u Insulin Human NPH (Humulin N (Bkc)) 22 units SC DAILY [facility] Last Admin: 11/27/17 08:17 Dose: 22 u Insulin Human NPH (Humulin N (Bkc)) 24 units SC QHS [facility] Last Admin: 11/26/17 21:49 Dose: 24 u Lisinopril (Zestril) 20 mg PO DAILY [facility] Last Admin: 11/27/17 08:17 Dose: 20 mg Magnesium Hydroxide (Milk Of Magnesia) 30 ml PO DAILY PRN PRN PRN Reason: Constipation Ondansetron HCl (Zofran) 4 mg IV Q8H PRN PRN PRN Reason: NAUSEA/VOMITING Oxycodone HCl (Oxyir) 5 mg PO Q4H PRN PRN PRN Reason: SEVERE PAIN (6-10/10) Last Admin: 11/27/17 06:48 Dose: 5 mg Polyethylene Glycol (Miralax) 17 gm PO DAILY PRN PRN PRN Reason: Constipation Last Admin: 11/27/17 08:42 Dose: 17 gm Polysaccharide [facility] (Ferrex 150) [facility] Last Admin: 11/27/17 08:16 Dose: 150 mg Promethazine HCl (Phenergan (Ll)) 6.25 mg IV Q4H PRN PRN PRN Reason: NAUSEA/VOMITING Sertraline HCl (Zoloft) 50 mg PO DAILY [facility] Last Admin: 11/27/17 08:17 Dose: 50 mg Sodium Chloride () 5 - 30 ml IV UD PRN PRN Reason: SALINE FLUSH Last Admin: 11/25/17 00:05 Dose: 7 ml Temazepam (Restoril) 15 mg PO QHS PRN PRN PRN Reason: insomnia Throat Lozenges (Cepacol Sore Throat Lozenge) 1 lozenge MUCOUS MEM Q2H PRN PRN PRN Reason: SORE THROAT Last Admin: 11/27/17 06:49 Dose: 1 lozenge Assessment/Plan 1. s/p left ankle arthrodesis with internal and external fixation; will continue pain control , other postoperative management per podiatry 2. Acute kidney injury, resolved with IV hydration, would avoid potential nephrotoxic medications. 3. Hypertension; lisinopril. 4. Hyperlipidemia, on statin. 5. Depression, on zoloft 6. Diabetes mellitus type II; will be continued on NPH and regular insulin sliding scale. 7. Acute blood loss Anemia 8. Morbid Obesity, weight loss recommended. 9. DVT Prophylaxis with Lovenox. Code Visit Inpatient E&M: 86901 [facility] Hosp L2
[2017-11-27 14:33] VITALS: BP 122/76; PULSE 98; RESP 18; TEMP 36.8; O2SAT 100
[2017-11-27 17:51] LABS: Bedside Glucose 98 mg/dL (70-110)
[2017-11-27 20:25] VITALS: BP 141/48; PULSE 80; RESP 14; TEMP 36.8; O2SAT 96
[2017-11-27] MEDS: Aspirin 81 MG TAB.CHEW PO (22:20)
[2017-11-27] MEDS: Gabapentin 300 MG Capsule PO (22:21)
[2017-11-27] MEDS: Atorvastatin Calcium 20 MG Tablet PO (22:21)
[2017-11-27] MEDS: Insulin NPH Human 100 UNITS/ML PEN 24 UNITS SC (22:27)
[2017-11-27 22:41] LABS: Bedside Glucose 117 mg/dL (70-110)
[2017-11-28 03:52] VITALS: BP 137/64; PULSE 70; RESP 14; TEMP 36.3; O2SAT 98
[2017-11-28] MEDS: oxyCODONE 5 MG Tablet PO ×4 (04:22→22:27)
[2017-11-28] MEDS: Acetaminophen 325 MG Tablet 650 MG PO ×3 (04:23→22:27)
[2017-11-28 04:36] LABS: Bedside Glucose 88 mg/dL (70-110)
[2017-11-28] MEDS: Enoxaparin 40 MG/0.4 ML Syringe SC (06:25)
[2017-11-28 06:35] LABS: Bedside Glucose 91 mg/dL (70-110)
[2017-11-28 07:57] VITALS: O2SAT 96
[2017-11-28 08:47] VITALS: BP 152/74; PULSE 99; RESP 16; TEMP 36.8; O2SAT 100
[2017-11-28] MEDS: Sertraline 50 MG Tablet PO (08:54)
[2017-11-28] MEDS: Iron Polysaccharide Complex 150 MG CAPSULE PO (08:55)
[2017-11-28] MEDS: Lisinopril 20 MG Tablet PO (08:55)
[2017-11-28] MEDS: Insulin NPH Human 100 UNITS/ML PEN 22 UNITS SC (08:57)
--- NOTE | 2017-11-28 08:59 | CASEMGMT ---
Social Work Note Placed call to [facility] and updated on incoming referral with updated clinicals for pt to assist in obtaining pre-cert. Sandi Alvaardo, TECHNICAL OPERATOR, CRIMPER ASSEMBLER
[2017-11-28 09:01] VITALS: PULSE 100
[2017-11-28] MEDS: Polyethylene Glycol 3350 17 GM PACKET PO (10:44)
[2017-11-28 10:46] LABS: Bedside Glucose 135 mg/dL (70-110)
--- NOTE | 2017-11-28 11:44 | PCM.HP.ID ---
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 West History of Present Illness: The patient is a 51 year old F with h/o DM neuropathy who presented for planned L ankle arthrodesis with internal and external fixation with Dr. West. Had fall in 2017, fractured ankle, walked on it for 2 months. Taken to OR by Dr. Kohler for ankle fusion. Had hardware failure and avascular necrosis of talus. Bone bx and culture done and showed no osteo. No recent abx. No redness or open wounds/ulcers prior to this admission. Taken to OR 11/24, cxs sent, given austen-op cefazolin. Surg cx now with very rare MRSE, path still pending. Feeling fine, pain is 7/10. No fever. Full ROS performed and neg except as noted above. 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) Left leg pain (Chronic) Morbid obesity due to excess calories (Chronic) HTN (hypertension) (Chronic) HLD (hyperlipidemia) (Chronic) Allergies/Adverse Reactions: Allergies latex Adverse Reaction (Verified 11/17/17 11:01) Rash morphine Adverse Reaction (Verified 11/17/17 11:01) Vomiting sulfamethoxazole [From Bactrim] Adverse Reaction (Verified 11/17/17 11:01) Vomiting trimethoprim [From Bactrim] Adverse Reaction (Verified 11/17/17 11:01) Vomiting Home Medications: Ambulatory Orders Medication Instructions Recorded Aspirin [Aspirin, Baby] 81 mg PO QHS 07/17/16 Lisinopril [Zestril] 20 mg PO DAILY #30 tablet 07/21/16 Metformin HCl [Glucophage] 500 mg PO BIDCM #60 tablet 07/21/16 Gabapentin [Neurontin] 300 mg PO QHS 09/07/16 Sertraline HCl [Zoloft] 50 mg PO DAILY 09/07/16 Ondansetron [Zofran Odt] 4 mg PO Q8H PRN PRN #10 tablet 10/15/16 Lovastatin [Mevacor] 80 mg PO QHS 01/18/17 Zolpidem Tartrate [Ambien] 5 mg PO QHS PRN PRN #14 tablet 03/17/17 Acetaminophen [Tylenol Tablet] 650 mg PO Q6H PRN PRN tablet 08/07/17 Iron Polysaccharide Complex 150 mg PO DAILYCM #30 capsule 08/25/17 [Ferrex 150] Oxycodone [Oxyir] 5 mg PO Q6H PRN PRN #30 tablet 08/25/17 Cholecalciferol (Vitamin D3) 2,000 unit PO DAILY 11/09/17 [Vitamin D3] Insulin NPH Human Isophane 22 unit SQ DAILY 11/09/17 [Novolin N] Insulin NPH Human Isophane 24 unit SQ QHS 11/09/17 [Novolin N] Insulin Regular, Human [Novolin R] 12 unit SC LUNCH 11/09/17 Insulin Regular, Human [Novolin R] 13 unit SC DAILY 11/09/17 Insulin Regular, Human [Novolin R] 13 unit SC DINNER 11/09/17 Polyethylene Glycol 3350 [Miralax] 17 gm PO DAILY PRN 11/09/17 - Social History SMOKING STATUS:: Never smoker Vital Signs Temp Pulse Resp BP Pulse Ox 98.3 F 100 16 152/74 H 100 11/28/17 08:47 11/28/17 09:01 11/28/17 08:47 11/28/17 08:47 11/28/17 08:47 Oxygen Flow Rate 2 Oxygen Delivery Method Room Air Weight: 136.7 kg Body Mass Index (BMI) 44.5 Finger Stick Blood Glucose 258 Microbiology Past 72 Hours 11/24/17 Unknown Gram Stain - Final Biopsy - Ankle Wound Culture - Final Staphylococcus epidermidis Anaerobic Culture - Final No anaerobic bacteria isolated. - Other Studies Radiology: [] reviewed Other Studies: [] Route of nutrition/ use of supplements: [] Nutritional Intake: [] IV Site: [] Gonzalez Catheter: [] - Physical Exam General: Alert, Oriented x3, Cooperative, No apparent distress HEENT: Atraumatic, PERRLA, EOMI Neck: Supple, No Nodes Lungs: Clear to auscultation, Normal air movement Cardiovascular: Regular rate, Regular Rhythm, No murmurs Abdomen: Bowel Sounds Present, Soft, Non Tender, Non-Distended Extremities: - - LLE with surg dressing and external fixator in place Skin: No rashes IV Site: Peripheral, without redness Neurological: Cranial nerves II-XII grossly intact, - - peripheral neuropathy - Assessment/Plan Antibiotics: [] Assessment/Plan: [] L ankle avascular necrosis and hardware failure, now s/p 11/24/17 arthrodesis, hardware removal, and internal/external fixation by Dr. West. Recent bone bx and cx neg for osteo. No recent inflammation, no recent abx, no open wounds prior to this procedure. Late growth from thio of very rare CoNS with no organisms seen on gram stain, and no purulence seen intra-op. Path is still pending. This is a difficult situation. Overall, this (+) cx seems most consistent with contamination, but would like to try to avoid infection of the new hardware. Based on cx, there aren't po options (except for tedizolid which could be very expensive given it would be for far off-label use). Given the low suspicion for true infection, I don't think the risks and cost of picc line for iv abx would be worthwhile. At this point, would recommend continuing to monitor off of abx and follow results of path and wound healing. Ok for d/c to [facility] from ID perspective. Thank you, will follow, d/w Dr. West and manager of case management.
[2017-11-28 14:15] VITALS: BP 130/74; PULSE 86; RESP 18; TEMP 36.8; O2SAT 98
[2017-11-28 15:51] LABS: Bedside Glucose 78 mg/dL (70-110)
--- NOTE | 2017-11-28 16:41 | PCM.PN.HOSP ---
Subjective: CC: Left ankle surgery. She reports less pain today, she denies any chest pain shortness of breath or palpitations. Surgical culture is growing RADHA ID to decide on antibiotic therapy. She is awaiting precert prior to discharge to [facility]. Vitals/I&O's: Vital Signs Temp Pulse Resp BP Pulse Ox 98.2 F 86 18 130/74 H 98 11/28/17 14:15 11/28/17 14:15 11/28/17 14:15 11/28/17 14:15 11/28/17 14:15 Oxygen Flow Rate 2 Oxygen Delivery Method Room Air Weight: 136.7 kg Body Mass Index (BMI) 44.5 Finger Stick Blood Glucose 258 Intake and Output for Last 24 Hours 11/26/17 11/27/17 11/28/17 23:59 23:59 23:59 Intake Total 3512 / 3512 900 / 900 600 / 600 Output Total 800 / 800 700 / 700 1900 / 1900 Balance 2712 / 2712 200 / 200 -1300 / -1300 General: Alert, Oriented x3 HEENT: Atraumatic Oral: Moist Mucosa Neck: Supple Lungs: Clear to auscultation Cardiovascular: Regular rate, Normal S1, Normal S2 Abdomen: Bowel Sounds Present, Soft, Non Tender Extremities: No clubbing Neurological: Cranial nerves II-XII grossly intact Microbiology Past 72 Hours 11/24/17 Unknown Biopsy - Ankle Gram Stain - Final 11/24/17 Unknown Biopsy - Ankle Wound Culture - Final Staphylococcus epidermidis 11/24/17 Unknown Biopsy - Ankle Anaerobic Culture - Final No anaerobic bacteria isolated. Laboratory Results 11/27/17 17:04: POC Glucose 98 11/27/17 22:25: POC Glucose 117 H 11/28/17 03:55: POC Glucose 88 11/28/17 06:28: POC Glucose 91 11/28/17 10:37: POC Glucose 135 H 11/28/17 15:40: POC Glucose 78 Current Medications Acetaminophen (Tylenol) 650 mg PO Q6H PRN PRN PRN Reason: Non-cardiac pain (mod-severe) Last Admin: 11/28/17 14:22 Dose: 650 mg Al Hydroxide/Mg Hydroxide (Mylanta Ii) 15 - 30 ml PO Q4H PRN PRN PRN Reason: INDIGESTION Aspirin (Aspirin, Baby) 81 mg PO QHS [facility] Last Admin: 11/27/17 22:20 Dose: 81 mg Atorvastatin Calcium (Lipitor) 20 mg PO QHS [facility] Last Admin: 11/27/17 22:21 Dose: 20 mg Enoxaparin Sodium (Lovenox) 40 mg SC DAILY@0600 [facility] Last Admin: 11/28/17 06:25 Dose: 40 mg Gabapentin (Neurontin) 300 mg PO QHS [facility] Last Admin: 11/27/17 22:21 Dose: 300 mg Hydralazine HCl (Apresoline) 10 mg IV Q4H PRN PRN PRN Reason: SBP > 160 Sodium Chloride () 250 mls @ 15 mls/hr IV .[id number] PRN PRN Reason: SALINE FLUSH Insulin Aspart (Novolog Flexpen (Bkc)) 0 units SC ACHS [facility] PRN Reason: Protocol Last Admin: 11/28/17 15:43 Dose: Not Given Insulin Aspart (Novolog Flexpen (Bkc)) 12 units SC LUNCH [facility] Last Admin: 11/28/17 12:17 Dose: 12 u Insulin Aspart (Novolog Flexpen (Bkc)) 13 units SC BREAKFAST [facility] Last Admin: 11/28/17 08:53 Dose: 13 u Insulin Aspart (Novolog Flexpen (Bkc)) 13 units SC DINNER [facility] Last Admin: 11/27/17 17:08 Dose: Not Given Insulin Human NPH (Humulin N (Bkc)) 22 units SC DAILY [facility] Last Admin: 11/28/17 08:57 Dose: 22 u Insulin Human NPH (Humulin N (Bkc)) 24 units SC QHS [facility] Last Admin: 11/27/17 22:27 Dose: 24 u Lisinopril (Zestril) 20 mg PO DAILY [facility] Last Admin: 11/28/17 08:55 Dose: 20 mg Magnesium Hydroxide (Milk Of Magnesia) 30 ml PO DAILY PRN PRN PRN Reason: Constipation Ondansetron HCl (Zofran) 4 mg IV Q8H PRN PRN PRN Reason: NAUSEA/VOMITING Oxycodone HCl (Oxyir) 5 mg PO Q4H PRN PRN PRN Reason: SEVERE PAIN (6-10/10) Last Admin: 11/28/17 10:43 Dose: 5 mg Polyethylene Glycol (Miralax) 17 gm PO DAILY PRN PRN PRN Reason: Constipation Last Admin: 11/28/17 10:44 Dose: 17 gm Polysaccharide Iron Complex (Ferrex 150) 150 mg PO DAILYCM [facility] Last Admin: 11/28/17 08:55 Dose: 150 mg Promethazine HCl (Phenergan (Ll)) 6.25 mg IV Q4H PRN PRN PRN Reason: NAUSEA/VOMITING Sertraline HCl (Zoloft) 50 mg PO DAILY [facility] Last Admin: 11/28/17 08:54 Dose: 50 mg Sodium Chloride () 5 - 30 ml IV UD PRN PRN Reason: SALINE FLUSH Last Admin: 11/25/17 00:05 Dose: 7 ml Temazepam (Restoril) 15 mg PO QHS PRN PRN PRN Reason: insomnia Throat Lozenges (Cepacol Sore Throat Lozenge) 1 lozenge MUCOUS MEM Q2H PRN PRN PRN Reason: SORE THROAT Last Admin: 11/27/17 06:49 Dose: 1 lozenge Assessment/Plan 1. s/p left ankle arthrodesis with internal and external fixation; will continue pain control , other postoperative management per podiatry Surgical culture now growing rare MRSE shows disease consulted to decide on antibiotic therapy. 2. Acute kidney injury, resolved with IV hydration, would avoid potential nephrotoxic medications. 3. Hypertension; she is on lisinopril. 4. Hyperlipidemia, she is on a statin. 5. Depression; stable on zoloft 6. Diabetes mellitus type II; will be continued on NPH and regular insulin sliding scale. 7. Acute blood loss Anemia 8. Morbid Obesity, weight loss recommended. 9. DVT Prophylaxis with Lovenox. Code Visit Inpatient E&M: 69244 [facility] Hosp L2
--- NOTE | 2017-11-28 16:44 | PN_ITS ---
Subjective: CC: Left ankle surgery. She reports less pain today, she denies any chest pain shortness of breath or palpitations. Surgical culture is growing RADHA ID to decide on antibiotic therapy. She is awaiting precert prior to discharge to [facility]. Vitals/I&O's: Vital Signs Temp Pulse Resp BP Pulse Ox 98.2 F 86 18 130/74 H 98 11/28/17 14:15 11/28/17 14:15 11/28/17 14:15 11/28/17 14:15 11/28/17 14:15 Oxygen Flow Rate 2 Oxygen Delivery Method Room Air Weight: 136.7 kg Body Mass Index (BMI) 44.5 Finger Stick Blood Glucose 258 Intake and Output for Last 24 Hours 11/26/17 11/27/17 11/28/17 23:59 23:59 23:59 Intake Total 3512 / 3512 900 / 900 600 / 600 Output Total 800 / 800 700 / 700 1900 / 1900 Balance 2712 / 2712 200 / 200 -1300 / -1300 General: Alert, Oriented x3 HEENT: Atraumatic Oral: Moist Mucosa Neck: Supple Lungs: Clear to auscultation Cardiovascular: Regular rate, Normal S1, Normal S2 Abdomen: Bowel Sounds Present, Soft, Non Tender Extremities: No clubbing Neurological: Cranial nerves II-XII grossly intact Microbiology Past 72 Hours 11/24/17 Unknown Biopsy - Ankle Gram Stain - Final 11/24/17 Unknown Biopsy - Ankle Wound Culture - Final Staphylococcus epidermidis 11/24/17 Unknown Biopsy - Ankle Anaerobic Culture - Final No anaerobic bacteria isolated. Laboratory Results 11/27/17 17:04: POC Glucose 98 11/27/17 22:25: POC Glucose 117 H 11/28/17 03:55: POC Glucose 88 11/28/17 06:28: POC Glucose 91 11/28/17 10:37: POC Glucose 135 H 11/28/17 15:40: POC Glucose 78 Current Medications Acetaminophen (Tylenol) 650 mg PO Q6H PRN PRN PRN Reason: Non-cardiac pain (mod-severe) Last Admin: 11/28/17 14:22 Dose: 650 mg Al Hydroxide/Mg Hydroxide (Mylanta Ii) 15 - 30 ml PO Q4H PRN PRN PRN Reason: INDIGESTION Aspirin (Aspirin, Baby) 81 mg PO QHS [facility] Last Admin: 11/27/17 22:20 Dose: 81 mg Atorvastatin Calcium (Lipitor) 20 mg PO QHS [facility] Last Admin: 11/27/17 22:21 Dose: 20 mg Enoxaparin Sodium (Lovenox) 40 mg SC DAILY@0600 [facility] Last Admin: 11/28/17 06:25 Dose: 40 mg Gabapentin (Neurontin) 300 mg PO QHS [facility] Last Admin: 11/27/17 22:21 Dose: 300 mg Hydralazine HCl (Apresoline) 10 mg IV Q4H PRN PRN PRN Reason: SBP > 160 Sodium Chloride () 250 mls @ 15 mls/hr IV .[id number] PRN PRN Reason: SALINE FLUSH Insulin Aspart (Novolog Flexpen (Bkc)) 0 units SC ACHS [facility] PRN Reason: Protocol Last Admin: 11/28/17 15:43 Dose: Not Given Insulin Aspart (Novolog Flexpen (Bkc)) 12 units SC LUNCH [facility] Last Admin: 11/28/17 12:17 Dose: 12 u Insulin Aspart (Novolog Flexpen (Bkc)) 13 units SC BREAKFAST [facility] Last Admin: 11/28/17 08:53 Dose: 13 u Insulin Aspart (Novolog Flexpen (Bkc)) 13 units SC DINNER [facility] Last Admin: 11/27/17 17:08 Dose: Not Given Insulin Human NPH (Humulin N (Bkc)) 22 units SC DAILY [facility] Last Admin: 11/28/17 08:57 Dose: 22 u Insulin Human NPH (Humulin N (Bkc)) 24 units SC QHS [facility] Last Admin: 11/27/17 22:27 Dose: 24 u Lisinopril (Zestril) 20 mg PO DAILY [facility] Last Admin: 11/28/17 08:55 Dose: 20 mg Magnesium Hydroxide (Milk Of Magnesia) 30 ml PO DAILY PRN PRN PRN Reason: Constipation Ondansetron HCl (Zofran) 4 mg IV Q8H PRN PRN PRN Reason: NAUSEA/VOMITING Oxycodone HCl (Oxyir) 5 mg PO Q4H PRN PRN PRN Reason: SEVERE PAIN (6-10/10) Last Admin: 11/28/17 10:43 Dose: 5 mg Polyethylene Glycol (Miralax) 17 gm PO DAILY PRN PRN PRN Reason: Constipation Last Admin: 11/28/17 10:44 Dose: 17 gm Polysaccharide Iron Complex (Ferrex 150) 150 mg PO DAILYCM [facility] Last Admin: 11/28/17 08:55 Dose: 150 mg Promethazine HCl (Phenergan (Ll)) 6.25 mg IV Q4H PRN PRN PRN Reason: NAUSEA/VOMITING Sertraline HCl (Zoloft) 50 mg PO DAILY [facility] Last Admin: 11/28/17 08:54 Dose: 50 mg Sodium Chloride () 5 - 30 ml IV UD PRN PRN Reason: SALINE FLUSH Last Admin: 11/25/17 00:05 Dose: 7 ml Temazepam (Restoril) 15 mg PO QHS PRN PRN PRN Reason: insomnia Throat Lozenges (Cepacol Sore Throat Lozenge) 1 lozenge MUCOUS MEM Q2H PRN PRN PRN Reason: SORE THROAT Last Admin: 11/27/17 06:49 Dose: 1 lozenge Assessment/Plan 1. s/p left ankle arthrodesis with internal and external fixation; will continue pain control , other postoperative management per podiatry Surgical culture now growing rare MRSE shows disease consulted to decide on antibiotic therapy. 2. Acute kidney injury, resolved with IV hydration, would avoid potential nephrotoxic medications. 3. Hypertension; she is on lisinopril. 4. Hyperlipidemia, she is on a statin. 5. Depression; stable on zoloft 6. Diabetes mellitus type II; will be continued on NPH and regular insulin sliding scale. 7. Acute blood loss Anemia 8. Morbid Obesity, weight loss recommended. 9. DVT Prophylaxis with Lovenox. Code Visit Inpatient E&M: 94608 Subs Hosp L2
[2017-11-28 20:21] VITALS: BP 131/57; PULSE 61; RESP 14; TEMP 36.7; O2SAT 98
[2017-11-28] MEDS: Gabapentin 300 MG Capsule PO (22:26)
[2017-11-28] MEDS: Aspirin 81 MG TAB.CHEW PO (22:26)
[2017-11-28] MEDS: Insulin NPH Human 100 UNITS/ML PEN 24 UNITS SC (22:26)
[2017-11-28] MEDS: Atorvastatin Calcium 20 MG Tablet PO (22:26)
[2017-11-28 22:36] LABS: Bedside Glucose 130 mg/dL (70-110)
[2017-11-29 03:00] VITALS: BP 127/59; PULSE 64; RESP 16; TEMP 37.1; O2SAT 96
[2017-11-29] MEDS: Enoxaparin 40 MG/0.4 ML Syringe SC (06:17)
[2017-11-29] MEDS: Acetaminophen 325 MG Tablet 650 MG PO ×3 (06:33→17:40)
[2017-11-29] MEDS: oxyCODONE 5 MG Tablet PO ×3 (06:34→17:40)
[2017-11-29 06:40] LABS: Bedside Glucose 118 mg/dL (70-110)
[2017-11-29 07:56] VITALS: O2SAT 95
[2017-11-29] MEDS: Iron Polysaccharide Complex 150 MG CAPSULE PO (08:16)
[2017-11-29 08:31] VITALS: PULSE 72; RESP 16
[2017-11-29] MEDS: Insulin NPH Human 100 UNITS/ML PEN 22 UNITS SC (08:47)
--- NOTE | 2017-11-29 09:05 | CASEMGMT ---
Social Work Note Faxed updated clinicals to [facility] to assist with obtaining pre-cert. Sandi Alvarado, FLUID DESIGNER, EXPORT MANAGER
[2017-11-29 09:40] VITALS: BP 124/68; PULSE 97; RESP 18; TEMP 36.9; O2SAT 98
--- NOTE | 2017-11-29 10:00 | NURSING ---
REVIEWED VITAL SIGNS TAKEN BY LUÍS HOOKER GRADUATE STUDENT INSTRUCTOR.
[2017-11-29] MEDS: Lisinopril 20 MG Tablet PO (10:25)
[2017-11-29] MEDS: Sertraline 50 MG Tablet PO (10:25)
--- NOTE | 2017-11-29 10:33 | PCM.PN.ID ---
Subjective: Feeling ok, pain stable, no fever, no n/v/d. - Physical Exam General: Alert, Cooperative, No apparent distress Lungs: Clear to auscultation, Normal air movement Cardiovascular: Regular rate, Regular Rhythm Abdomen: Soft, Non Tender, Non-Distended Skin: Incision - LLE wrapped Vital Signs Temp Pulse Resp BP Pulse Ox 98.5 F 97 18 124/68 H 98 11/29/17 09:40 11/29/17 09:40 11/29/17 09:40 11/29/17 09:40 11/29/17 09:40 Oxygen Flow Rate 2 Oxygen Delivery Method Room Air Weight: 136.7 kg Body Mass Index (BMI) 44.5 Finger Stick Blood Glucose 258 Intake and Output for Last 24 Hours 11/27/17 11/28/17 11/29/17 23:59 23:59 23:59 Intake Total 900 / 900 600 / 600 500 / 500 Output Total 700 / 700 1900 / 1900 Balance 200 / 200 -1300 / -1300 500 / 500 Microbiology Past 72 Hours 11/24/17 Unknown Gram Stain - Final Biopsy - Ankle Wound Culture - Final Staphylococcus epidermidis Anaerobic Culture - Final No anaerobic bacteria isolated. 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 West. Recent bone bx and cx neg for osteo. No recent inflammation, no recent abx, no open wounds prior to this procedure. Late growth from thio of very rare CoNS with no organisms seen on gram stain, and no purulence seen intra-op. Path is still pending. This is a difficult situation. Overall, this (+) cx seems most consistent with contamination, but would like to try to avoid infection of the new hardware. Based on cx, there aren't po options (except for tedizolid which could be very expensive given it would be for far off-label use). Given the low suspicion for true infection, I don't think the risks and cost of picc line for iv abx would be worthwhile. At this point, would recommend continuing to monitor off of abx and follow results of path and wound healing. Ok for d/c to ECF from ID perspective. will follow, d/w Dr. West
--- NOTE | 2017-11-29 11:49 | CASEMGMT ---
Social Work Note Placed call to [facility] and confirmed that authorization had been received. Notified physician. Anticipate discharge today. Sandi Alvarado, LAUNDRY HELPER, MILLING MACHINE OPERATOR
--- NOTE | 2017-11-29 11:58 | PCM.TXEXTCAR ---
- Diet 11/24/17 20:59 Diet: Calorie Controlled How many daily calories?: 1800 calorie - Wound(s) LEFT ANKLE Wound Type: Surgical Incision Dressing Change: Dry Sterile Dressing - Therapies Weight Bearing: Non weight bearing Physical Therapy: Eval and Treat Occupational Therapy: Eval and Treat - Allergies/Procedures Done in Hospital Allergies/Adverse Reactions: Allergies latex Adverse Reaction (Verified 11/17/17 11:01) Rash morphine Adverse Reaction (Verified 11/17/17 11:01) Vomiting sulfamethoxazole [From Bactrim] Adverse Reaction (Verified 11/17/17 11:01) Vomiting trimethoprim [From Bactrim] Adverse Reaction (Verified 11/17/17 11:01) Vomiting - Type of Care/Length of Stay Estimated LOS: Convalescent Care Less Than 30 days Type of Care Needed: Skilled Rehab Potential: Good Prognosis: Fair - Additional Orders/Day of Discharge H&P will serve as current which was dated: 11/24/17 Day of Discharge: 11/29/17 - Dietary and Speech Recommendations Dietitian Recommendations/Changes: Suggest diet change to 2000 calorie, carbohydrate-controlled, cardiac. When pt ready for lifestyle change, suggest referral to [facility] for blood glucose control & supportive wt loss. Denis 1 packet BID as needed for wound healing. - Follow Up Care Primary Care Physician: Alexander Velez MD [Primary Care Provider] -
--- NOTE | 2017-11-29 12:02 | DS.PCM_ITS ---
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 West. Recent bone bx and cx neg for osteo. No recent inflammation, no recent abx, no open wounds prior to this procedure. Late growth from surgical bone biopsy of very rare with no organisms seen on gram stain, and no purulence seen intra-op. Path is still pending. Infectious disease physician did not recommend any further antibiotic therapy at this time. She is now being discharged to assisted facility for post acute care rehabilitation. physical exam at the time of discharge; vital signs were stable. she was alert and oriented to time place and person. she did not appear to be any form of distress. S1 and S2 heard no murmur or gallop Lung exam was clear to auscultation with no adventitious sounds. Abdomen was soft nontender with normal bowel sounds. extremity exam did not reveal any edema, palpable pulses bilaterally. Neurologic exam was grossly intact. MS: left ankle postsurgical Discharge Diet: No Restrictions Home Medications: Medications to take at Discharge Aspirin [Aspirin, Baby] 81 mg PO QHS 07/17/16 Lisinopril [Zestril] 20 mg PO DAILY #30 tablet 07/21/16 Metformin HCl [Glucophage] 500 mg PO BIDCM #60 tablet 07/21/16 Gabapentin [Neurontin] 300 mg PO QHS 09/07/16 Sertraline HCl [Zoloft] 50 mg PO DAILY 09/07/16 Ondansetron [Zofran Odt] 4 mg PO Q8H PRN PRN #10 tablet 10/15/16 Lovastatin [Mevacor] 80 mg PO QHS 01/18/17 Zolpidem Tartrate [Ambien] 5 mg PO QHS PRN PRN #14 tablet 03/17/17 Acetaminophen [Tylenol Tablet] 650 mg PO Q6H PRN PRN tablet 08/07/17 Iron Polysaccharide Complex [Ferrex 150] 150 mg PO DAILYCM #30 capsule 08/25/17 Cholecalciferol (Vitamin D3) [Vitamin D3] 2,000 unit PO DAILY 11/09/17 Insulin NPH Human Isophane [Novolin N] 22 unit SQ DAILY 11/09/17 Insulin NPH Human Isophane [Novolin N] 24 unit SQ QHS 11/09/17 Insulin Regular, Human [Novolin R] 12 unit SC LUNCH 11/09/17 Insulin Regular, Human [Novolin R] 13 unit SC DAILY 11/09/17 Insulin Regular, Human [Novolin R] 13 unit SC DINNER 11/09/17 Polyethylene Glycol 3350 [Miralax] 17 gm PO DAILY PRN 11/09/17 Oxycodone [Oxyir] 5 mg PO Q4H PRN PRN #10 tab 11/29/17 Following Prescrptions Were Given to Patient: Oxycodone [Oxyir] 5 mg PO Q4H PRN PRN #10 tab PRN Reason: Severe Pain (-07/18) Primary Care Physician: Alexander Velez MD [Primary Care Provider] - Disposition: Senior Living facility Patient Condition:: Fair Meaningful Use Info Meaningful Use Diagnoses (Choose all that apply): None applicable Code Visit Inpatient E&M: 97438 Disch Hosp
--- NOTE | 2017-11-29 12:02 | TREXTCAR_ITS ---
- Diet 11/24/17 20:59 Diet: Calorie Controlled How many daily calories?: 1800 calorie - Wound(s) LEFT ANKLE Wound Type: Surgical Incision Dressing Change: Dry Sterile Dressing - Therapies Weight Bearing: Non weight bearing Physical Therapy: Eval and Treat Occupational Therapy: Eval and Treat - Allergies/Procedures Done in Hospital Allergies/Adverse Reactions: Allergies latex Adverse Reaction (Verified 11/17/17 11:01) Rash morphine Adverse Reaction (Verified 11/17/17 11:01) Vomiting sulfamethoxazole [From Bactrim] Adverse Reaction (Verified 11/17/17 11:01) Vomiting trimethoprim [From Bactrim] Adverse Reaction (Verified 11/17/17 11:01) Vomiting - Type of Care/Length of Stay Estimated LOS: Convalescent Care Less Than 30 days Type of Care Needed: Skilled Rehab Potential: Good Prognosis: Fair - Additional Orders/Day of Discharge H&P will serve as current which was dated: 11/24/17 Day of Discharge: 11/29/17 - Dietary and Speech Recommendations Dietitian Recommendations/Changes: Suggest diet change to 2000 calorie, carbohydrate-controlled, cardiac. When pt ready for lifestyle change, suggest referral to [facility] for blood glucose control & supportive wt loss. Denis 1 packet BID as needed for wound healing. - Follow Up Care Primary Care Physician: Alexander Velez MD [Primary Care Provider] -
[2017-11-29 12:16] LABS: Bedside Glucose 114 mg/dL (70-110)
--- NOTE | 2017-11-29 12:42 | CASEMGMT ---
Social Work Note Call from [facility] stating that pre-cert was obtained. Physician notified. PAS/RR completed and submitted in the [facility]. Copy on chart and SNF packet. Discharge summary, medlist and scripts faxed to SNF. Copies on chart and originals in SNF packet. Placed call to Dr. West who states she will change the dressing around [id number]. Transport setup at 1800 via cot through [facility]. Notified SNF and RN. Plan: [facility] for rehabilitation. PAS/RR submitted in the [facility]. Transport setup through [facility] via cot at 1800. Sandi Alvarado, ZIPPER REPAIRER, INFORMATION SYSTEMS PROJECT MANAGER
[2017-11-29 13:28] VITALS: BP 133/72; PULSE 96; RESP 22; TEMP 36.8; O2SAT 94
--- NOTE | 2017-11-29 15:14 | NURSING ---
REVIEWED AFTERNOON VITALS TAKEN BY LUÍS HOOKER BOOKING AGENT.
[2017-11-29 17:15] LABS: Bedside Glucose 101 mg/dL (70-110)
--- NOTE | 2017-11-29 17:29 | PCM.PROGNOTE ---
Subjective: This 51-year-old female with history of diabetes with neuropathy was seen bedside postoperative day #5 left lower extremity revisional ankle arthrodesis with bone biopsies, application of bone graft and bone marrow aspirate, and application of internal and external fixation. Her pain is controlled with elevation and occasional oral pain medications. She denies fever, chill, nausea, vomiting, chest pain, shortness of breath, calf pain. She is scheduled to be transferred to [facility] this evening. She has maintain a nonweightbearing status. She denies recent injuries. She denies urinary retention or inability to have a bowel movement. - Physical Exam General: Alert, Oriented x3, Cooperative Extremities: No cyanosis, Capillary Refill Less than 3 Seconds - All digits left foot, No Calf Tenderness - Negative Gabriel left, Diminished Peripheral Pulses - Palpable dorsalis pedis left Skin: Incision - The lateral left ankle and anterior medial ankle incisions are well aligned and coapted without necrosis or gapping. There is no purulence, erythema, streaking, odor, eschar is noted. All pin sites appear clean without signs of infection or inflammation or purulence. There is no active bleeding noted from any site. The small bone marrow aspiration incision at the proximal anterior left leg is also well aligned and coapted with [address]. Musculoskeletal: No Tenderness to Palpation of Joints or Extremities, Tenderness - Palpation of some of the incision sites and surgical site is minimal, - - The left ankle foot and leg are in rectus position with an intact external fixation device. No loosening or hardware failure is noted. Active range of motion of all digits left foot Neurological: - - Lack of epicritic sensation light touch left lower extremity Psych/Mental Status: Normal Affect, Appropriate Vital Signs Temp Pulse Resp BP Pulse Ox 98.3 F 96 22 H 133/72 H 94 11/29/17 13:28 11/29/17 13:28 11/29/17 13:28 11/29/17 13:28 11/29/17 13:28 Oxygen Flow Rate 2 Oxygen Delivery Method Room Air Weight: 136.7 kg Body Mass Index (BMI) 44.5 Finger Stick Blood Glucose 258 Intake and Output for Last 24 Hours 11/27/17 11/28/17 11/29/17 23:59 23:59 23:59 Intake Total 900 / 900 600 / 600 800 / 800 Output Total 700 / 700 1900 / 1900 900 / 900 Balance 200 / 200 -1300 / -1300 -100 / -100 Microbiology Past 72 Hours 11/24/17 Unknown Gram Stain - Final Biopsy - Ankle Wound Culture - Final Staphylococcus epidermidis Anaerobic Culture - Final No anaerobic bacteria isolated. POC Glucose 11/29/17 11/29/17 11/29/17 17:09 12:08 06:15 POC Glucose 101 114 H 118 H 11/28/17 22:24 POC Glucose 130 H Assessment/Plan Postoperative day # 5 revision arthrodesis with internal and external fixation for treatment of nonunion and avascular necrosis and hardware failure Diabetes DVT prophylaxis Other comorbidities: Obesity, anemia, hypertension, hyperlipidemia, depression I reviewed and discussed her care plan and treatment recommendations. Her vitals remained stable and her pain is controlled at this time. Her intraoperative specimen sent to microbiology demonstrated a potential contaminant. Due to her high risk status this case was reviewed with infectious disease who is also suspected contaminant. The pathology specimen is pending and will be monitored closely. The consultation is greatly appreciated. Her postoperative dressing was changed today and the leg and all pin sites were cleansed with chlorhexidine antimicrobial wand. A new dressing consisting of Xeroform to the pin sites and Betadine soaked gauze to the main lateral incision site were applied. There are no acute signs of infection in the incision site remains well coapted and aligned. This was also padded well with a multilayer compression dressing that was applied underneath the external fixation device to aid in edema reduction. It is noted her edema has reduced to the surgical site since her first postoperative evaluation. The entire frame was next well-padded with multiple Kerlix rolls and covered with Jeferson wraps to prevent contamination. She was advised to keep this clean dry and intact. To ice and elevate for pain and inflammation management. To continue with oral oxycodone every 4-6 hours as needed for pain. To continue incentive spirometer really while awake. To continue Lovenox for DVT prophylaxis. To continue to work with physical and occupational therapy for deconditioning prevention and for additional gait training. Strict nonweightbearing to left lower extremity is imperative. Medical management with medicine team is appreciated. I recommended rehabilitation placement to optimize postoperative success. She is scheduled to be transferred to [facility] this evening. Discharge recommendations were entered electronically. I recommend she follows up with me next Monday on December 04 at the [facility]; to call to confirm appointment time. I answered all of Eleni's questions this evening. Please do not hesitate to call if you have any questions. Kait West, DP [facility] [phone]
--- NOTE | 2017-11-29 17:30 | PCM.DC.POD ---
Discharge Diet: No Restrictions, - - david nutritional supplement packet. Mix with 8 oz water and drink twice daily. Discharge Activity: May Not Drive, May Shower, Use Walker, Use Crutches Weight Bearing Status: No weight bearing - strict left lower extremity Keep extremity elevated above heart level: Left Leg Call your doctor if your incision/area has: Continuous Slow Oozing, Sudden Increased Bleeding, Increased Pain/ Swelling, Increased Redness, Foul Smelling Discharge, Swelling at the incision site Call your doctor if you observe: Fever of 101 or Higher, Coldness, Increased Pain, Numbness or Tingling, Chest pain, Calf discomfort, Uncontrolled pain Cleanse incision/area with: Keep Dressing Clean & Dry, - - keep pillow cases over the external fixation device to avoid contralateral limb injury. Allergies/Adverse Reactions: Allergies latex Adverse Reaction (Verified 11/17/17 11:01) Rash morphine Adverse Reaction (Verified 11/17/17 11:01) Vomiting sulfamethoxazole [From Bactrim] Adverse Reaction (Verified 11/17/17 11:01) Vomiting trimethoprim [From Bactrim] Adverse Reaction (Verified 11/17/17 11:01) Vomiting Medications to take at Discharge Aspirin [Aspirin, Baby] 81 mg PO QHS 07/17/16 Lisinopril [Zestril] 20 mg PO DAILY #30 tablet 07/21/16 Metformin HCl [Glucophage] 500 mg PO BIDCM #60 tablet 07/21/16 Gabapentin [Neurontin] 300 mg PO QHS 09/07/16 Sertraline HCl [Zoloft] 50 mg PO DAILY 09/07/16 Ondansetron [Zofran Odt] 4 mg PO Q8H PRN PRN #10 tablet 10/15/16 Lovastatin [Mevacor] 80 mg PO QHS 01/18/17 Zolpidem Tartrate [Ambien] 5 mg PO QHS PRN PRN #14 tablet 03/17/17 Acetaminophen [Tylenol Tablet] 650 mg PO Q6H PRN PRN tablet 08/07/17 Iron Polysaccharide Complex [Ferrex 150] 150 mg PO DAILYCM #30 capsule 08/25/17 Cholecalciferol (Vitamin D3) [Vitamin D3] 2,000 unit PO DAILY 11/09/17 Insulin NPH Human Isophane [Novolin N] 22 unit SQ DAILY 11/09/17 Insulin NPH Human Isophane [Novolin N] 24 unit SQ QHS 11/09/17 Insulin Regular, Human [Novolin R] 12 unit SC LUNCH 11/09/17 Insulin Regular, Human [Novolin R] 13 unit SC DAILY 11/09/17 Insulin Regular, Human [Novolin R] 13 unit SC DINNER 11/09/17 Polyethylene Glycol 3350 [Miralax] 17 gm PO DAILY PRN 11/09/17 Oxycodone [Oxyir] 5 mg PO Q4H PRN PRN #10 tab 11/29/17 The following prescriptions were given: Oxycodone [Oxyir] 5 mg PO Q4H PRN PRN #10 tab PRN Reason: Severe Pain (-07/18) Primary Care Physician: Alexander Velez MD [Primary Care Provider] - Please Follow Up With: Kait West DPM When: MondayDec 04 [facility]. Call [phone] to confirm time. Proposed Discharge Date: 11/29/17
--- NOTE | 2017-11-29 17:34 | NURSING ---
REPORT CALLED TO ALEIDA PONCE AT [facility] FOR DISCHARGE.
== END 2017-11-29 20:01 | disposition skilled nursing facility (03) ==
LOC: SDC 23:12
PROVIDERS: Anesthesiology; Internal Medicine; Podiatrist; Admitting Provider Family Medicine; Family Provider Family Medicine; PCP Family Medicine; Visit Provider Internal Medicine
PROC: (CPT 20680; principal; 2017-11-24 12:15)
DX: M96.0 Pseudarthrosis after fusion or arthrodesis (principal); M87.872 Other osteonecrosis, left ankle; Y83.8 Other surgical procedures as the cause of abnormal reaction of the patient, or of later complication, without mention of misadventure at the time of the procedure; E11.42 Type 2 diabetes mellitus with diabetic polyneuropathy; E66.01 Morbid (severe) obesity due to excess calories; I10 Essential (primary) hypertension; E78.5 Hyperlipidemia, unspecified; F32.9 Major depressive disorder, single episode, unspecified; D50.9 Iron deficiency anemia, unspecified; D62 Acute posthemorrhagic anemia; J45.909 Unspecified asthma, uncomplicated; G25.81 Restless legs syndrome; N17.9 Acute kidney failure, unspecified; M13.872 Other specified arthritis, left ankle and foot; Z79.82 Long term (current) use of aspirin; Z71.3 Dietary counseling and surveillance; Z79.4 Long term (current) use of insulin; Z79.899 Other long term (current) drug therapy; Z68.43 Body mass index [BMI] 50.0-59.9, adult; Z86.14 Personal history of Methicillin resistant Staphylococcus aureus infection
CPT/HCPCS: 20680; 27870; 36415; 73590; 73610; 73630; 76000; 80048; 82962; 83036; 83735; 85025; 86850; 86900; 87015; 87070; 87075; 87077; 87102; 87116; 87186; 87205; 87206; 88304; 88307; 88311; 94762; 96361; 96365; 96366; 96372; 96375; 96376; 97110; 97163; 97166; 97530; 97535; 97802; 99218; J7030; J7120; A4216; G0378; G0379; J2405

== ENCOUNTER → 2018-02-10 08:42 | Outpatient (CLI) | payer MEDICAID, SELFPAY ==
--- NOTE | 2018-02-10 08:46 | CT_ITS ---
STUDY: CT LEFT ANKLE WITHOUT CONTRAST REASON FOR EXAM: Female, 52 years old. Left ankle osteoarthritis. Surgery x4 with hardware and bone graft. History of hypertension and diabetes. RADIATION DOSAGE (If Supplied By Facility): CTDIvol = ( 12.28 ) mGy, DLP = ( 505.09 ) mGycm TECHNIQUE: Thin section transaxial imaging of the ankle was obtained, with sagittal and coronal reconstructed images. Individualized dose optimization techniques were used for this CT. COMPARISON: None. FINDINGS: There is evidence of an external fixation device about the lower leg and ankle. Scatter artifact limits evaluation. Anchoring pins for the external devices are seen transfixing the upper and mid tibia as well as within the hindfoot. There is apparent amputation of the distal fibula in the region of the lower diaphysis. There is a metallic plate and screws along the lateral aspect of the distal fibula which appear intact. There is diffuse periosteal reaction about the distal tibia with evidence of lucencies suggesting previous plating which is no longer present. There is a large metallic screw transfixing the anterior tibia extending downward along the medial aspect of the talus into the calcaneus. This extends outward beyond the posteroinferior calcaneal cortex. There is marked arthrosis of the tibiotalar articulation appears markedly irregular with subchondral erosions. The talus appears fractured and compacted. There is a metallic plate and screws along the lateral aspect of the calcaneus. The navicular and cuboid tarsal bones appear normal although anchoring screws for the external device extend into both the medial cuneiform and cuboid.. Marked arthrosis of the subtalar, talonavicular and calcaneocuboid articulations. The soft tissues are difficult to evaluate due to scatter artifact. There is subcutaneous stranding from the mid calf downward. The musculature appears grossly intact. CT/Extremity Lower without Contra IMPRESSION: 1. Limited CT of the lower leg and ankle secondary to artifact from an external fixation device. 2. Surgical changes of the ankle and hindfoot as described. There appear to be multiple fractures with nonunion. 3. Surgical amputation of the distal fibula. 4. Marked soft tissue swelling without focal collection. Electronically Signed: Song Allen DO at 9:26 EDT Tel [phone], Service support ,
== END ==
PROVIDERS: Family Provider Family Medicine; PCP Family Medicine; Visit Provider Podiatrist
DX: M19.172 Post-traumatic osteoarthritis, left ankle and foot (principal); M87.059 Idiopathic aseptic necrosis of unspecified femur; Z98.1 Arthrodesis status; M84.672K Pathological fracture in other disease, left ankle, subsequent encounter for fracture with nonunion
CPT/HCPCS: 73700

== ENCOUNTER → 2018-02-20 11:27 | Outpatient (CLI) | payer MEDICAID, SELFPAY | PROVIDERS: Family Provider Family Medicine; PCP Family Medicine; Visit Provider Podiatrist | DX: E55.9 Vitamin D deficiency, unspecified (principal); Z98.1 Arthrodesis status | CPT/HCPCS: 36415; 82306 ==

== ENCOUNTER → 2018-04-25 14:19 | Outpatient (CLI) | payer MEDICAID, SELFPAY ==
--- NOTE | 2018-04-25 14:23 | CT_ITS ---
STUDY: CT LEFT ANKLE WITHOUT CONTRAST REASON FOR EXAM: Female, 52 years old. Delayed ankle healing. For prior surgeries. RADIATION DOSAGE (If Supplied By Facility): CTDIvol = ( 15.35 ) mGy, DLP = ( 665.84 ) mGycm TECHNIQUE: Thin section transaxial imaging of the ankle was obtained, with sagittal and coronal reconstructed images. Individualized dose optimization techniques were used for this CT. COMPARISON: CT of the left ankle dated February 10, 2018. X-rays of the ankle dated November 24, 2017. FINDINGS: There is generalized osteopenia with external fixator unchanged. There is stable surgical resection of the distal fibula. There is lateral plate and screw fixation of the distal tibia which shows no significant change since the prior study. Postsurgical changes are also noted at the tibiotalar and subtalar joints with fusion, unchanged. There is limited periosteal reaction in the distal tibia and there is no evidence of bridging periosteal reaction/callus formation at the fusion sites. There is generalized soft tissue swelling unchanged. CT/Extremity Lower without Contra IMPRESSION: Stable osteopenia with distal fibular resection, lateral plate and screw fixation and fusion changes. No evidence of bridging callus formation. No definite complications. Electronically Signed: Raghav Rangel MD at 12:39 EDT , Service support ,
== END ==
PROVIDERS: Family Provider Family Medicine; PCP Family Medicine; Visit Provider Podiatrist
DX: M19.172 Post-traumatic osteoarthritis, left ankle and foot (principal); M87.059 Idiopathic aseptic necrosis of unspecified femur; Z98.1 Arthrodesis status; M84.672K Pathological fracture in other disease, left ankle, subsequent encounter for fracture with nonunion
CPT/HCPCS: 73700

== ENCOUNTER 2018-05-15 19:12 | Observation (INO) | payer MEDICAID, SELFPAY ==
[2018-05-15] VITALS (8 sets, daily range): BP systolic 88–167; BP diastolic 53–80; PULSE 72–95; RESP 16–20; TEMP 36.2–36.7; O2SAT 88–99; BMI 42.8
[2018-05-15 12:15] LABS: Partial Thromboplast Time 27.2 Seconds (24.1-36.2)
[2018-05-15 12:15] LABS: Bedside Glucose 127 mg/dL (70-110)
[2018-05-15 12:24] LABS: BUN 21 mg/dL (7-18); Creatinine, Serum 1.12 mg/dL (0.55-1.02); EST Glomerular Filtration Rate 54 mL/min (>60); Estimated Creatinine Clearance 60.01 ml/min; Glucose 124 mg/dL (74-106)
[2018-05-15 12:25] LABS: ALB/GLOB Ratio 0.8 RATIO (0.9-2.4); AST(SGOT) 13 U/L (15-37); Alanine Aminotransfer ALT/SGPT 19 U/L (13-56); Albumin, Serum 3.4 g/dL (3.2-5.0); Alkaline Phosphatase 107 U/L (45-117); Anion Gap 9 (5-15); BUN/Creat Ratio 18.8 RATIO (10-20); Bilirubin, Direct 0.08 mg/dL (0.00-0.30); Calcium,Total 9.3 mg/dL (8.5-10.1); Chloride 106 mmol/L (98-107); Est Glom Filt Rate - Afr Amer 65 mL/min (>60); Globulin 4.5 g/dL (2.2-4.2); Potassium 4.3 mmol/L (3.5-5.1); Protein, Total 7.9 g/dL (6.4-8.2); Sodium Level 142 mmol/L (136-145)
[2018-05-15 12:30] LABS: Hemoglobin A1c 5.8 % (4.2-6.3)
[2018-05-15] MEDS: Heparin 10,000 UNITS/10 ML Vial 10000 UNITS (12:47)
[2018-05-15] MEDS: Cefazolin 2 GM in 0.9% Normal Saline 100 ML IV (14:00)
--- NOTE | 2018-05-15 14:00 | RAD_ITS ---
STUDY: X-RAY - LEFT FOOT CLINICAL: Female, 52 years old. External fixation removal. Debridement of arthrodesis site. TECHNIQUE: 11 fluoroscopic images view(s) of the foot. COMPARISON: 11/24/2017 FINDINGS: Fluoroscopic guidance was provided during removal of the patient's left foot and ankle hardware. RAD/Foot min 3 Views IMPRESSION: As above. Electronically Signed: Antonio Pelayo, at 18:48 EDT Tel , Service support ,
[2018-05-15] MEDS: Bupivacaine Mpf 0.5% 30 ML VIAL (18:26)
--- NOTE | 2018-05-15 19:01 | PCM.IMDPSTOP ---
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 Surgeon: Kait West DPM Primary Surgeon/Physician: Kait West DPM fish and game warden: none Pre-Operative Diagnosis: non union ankle. s/p ankle left arthrodesis with internal and external fixation with previous bone allograft Post-Operative Diagnosis: non union ankle. s/p ankle left arthrodesis with internal and external fixation with previous bone allograft Surgery/Procedure Performed:: removal of left external fixation. debridement and application of ankle non union site with application of bone marrow aspirate and ignite bone graft. percutaneous ankle arthrodesis internal fixation placement Description of Surgical Findings:: hemostasis controlled materials: [employer] cannulated 7.0 short thread screw (2), 5.5 (1), two k wires, ignite bone graft complications: none speciment: none The patient tolerated the procedure and anesthesia well. She was transported to the PACU with vital signs stable and vascular status intact to the left lower extremity. Orders were entered electronically. She will be admitted over night for observation for pain control and to further assess her safety prior to discharge home alone. Estimated Blood Loss: <100 mL Specimen's removed: none Type of Anesthesia:: General/Regional, Local - post op: 10 cc 0.5% marcaine plain administered as saphenous nerve block, left - Admit VTE Documentation VTE Present on Admission: No VTE Mechan Device Prophylaxis: SCD's VTE Pharm Prophylaxis ordered?: Yes
--- NOTE | 2018-05-15 19:06 | OP.PN_ITS ---
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 Surgeon: Kait West DPM Primary Surgeon/Physician: Kait West DPM filling separator: none Pre-Operative Diagnosis: non union ankle. s/p ankle left arthrodesis with internal and external fixation with previous bone allograft Post-Operative Diagnosis: non union ankle. s/p ankle left arthrodesis with internal and external fixation with previous bone allograft Surgery/Procedure Performed:: removal of left external fixation. debridement and application of ankle non union site with application of bone marrow aspirate and ignite bone graft. percutaneous ankle arthrodesis internal fixation placement Description of Surgical Findings:: hemostasis controlled materials: [employer] cannulated 7.0 short thread screw (2), 5.5 (1), two k wires, ignite bone graft complications: none speciment: none The patient tolerated the procedure and anesthesia well. She was transported to the PACU with vital signs stable and vascular status intact to the left lower extremity. Orders were entered electronically. She will be admitted over night for observation for pain control and to further assess her safety prior to discharge home alone. Estimated Blood Loss: <100 mL Specimen's removed: none Type of Anesthesia:: General/Regional, Local - post op: 10 cc 0.5% marcaine plain administered as saphenous nerve block, left - Admit VTE Documentation VTE Present on Admission: No VTE Mechan Device Prophylaxis: SCD's VTE Pharm Prophylaxis ordered?: Yes
--- NOTE | 2018-05-15 19:07 | PCM.OPRPT ---
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 Surgeon: Kait West DPM Pre-Operative Diagnosis: non union ankle. s/p ankle left arthrodesis with internal and external fixation with previous bone allograft secondary to non and malunion of ankle fracture with complicated healing course Post-Operative Diagnosis: non union ankle. s/p ankle left arthrodesis with internal and external fixation with previous bone allograft secondary to non and malunion of ankle fracture with complicated healing course Surgery/Procedure Performed:: removal of left external fixation. debridement and application of ankle non union site with application of bone marrow aspirate and ignite bone graft. percutaneous ankle arthrodesis internal fixation placement Description of Surgical Findings:: hemostasis: Well-padded pneumatic left thigh tourniquet, 325 mmHg materials: [employer] cannulated 7.0 short thread screw (2), 5.5 (1), two k wires, [employer] ignite bone graft (20cc), arteriocyte for bone marrow aspirate kit use complications: none specimen: none sustainability project manager: none Type of Anesthesia:: General/Regional, Local - post op: 10 cc 0.5% marcaine plain administered as saphenous nerve block, left Specimen's removed: none Estimated Blood Loss (mL): <100 mL Description of Procedure: Indications: This 52-year-old female with significant past medical history of anemia, previous chronic kidney disease, depression, diabetes with neuropathy, hyperlipidemia, hypertension, premature atrial contraction, history of vitamin D deficiency, history of nonhealing and avascular necrosis of the talus previously had internal and external fixation for revisional ankle arthrodesis in November 2017. She has very minimal osseous incorporation of her femoral head bone allograft and it is time to remove the external fixation device due to continued frame irritation and extended duration of previous use. She has been taking vitamin D supplements, uses a bone stimulator, and has remained compliant with her weightbearing status. X-rays and CT scan confirm there are areas of nonunion at the previous arthrodesis site. Clinically her neurovascular status remains intact. She does not demonstrate any clinical, systemic, or local signs of infection. She did not have pain on palpation to the arthrodesis site and her ankle remains in a rectus position. The patient was medically cleared by her primary care physician, Dr. Velez. I reviewed her history and physical exam and her preoperative diagnostic data including CBC, CMP, hemoglobin A1c of 5.8%, and most recent vitamin D level of 37. The preoperative indications, planned procedure, possible benefits, risks, complications, anticipated healing time and management were discussed in detail with patient. She understands and elects to proceed with surgery at this time. She understands the complications may include but are not limited to the following: Pain, scarring, swelling, continued delayed or nonhealing of the bone or wounds, under or overcorrection, need for further surgery, hardware failure, blood clot, loss of limb/function/life, and allergic reaction. No guarantees were made. I answered all of her questions to her satisfaction. The informed surgical consent and her limb were signed. Procedure in detail: The patient was transported to the operating room via cart and placed on the operating table in the supine position. Final verification of patient, surgery, and limb designation was performed via the timeout procedure. A preoperative left lower extremity regional block was administered via the anesthesia team. General anesthesia was initiated by the anesthesia team. A well-padded pneumatic left thigh tourniquet was placed. The left lower extremity including the external fixation device was prepped and draped in typical standard format. Attention was first directed to the tibial tuberosity of the left lower extremity. A 1 cm linear incision was made to the distal medial aspect of the tibial tuberosity site and blunt dissection was performed down directly to the bone with a hemostat. A bone marrow aspirate kit trocar was gently tapped into the medullary canal and 60 cc of bone marrow aspirate was obtained. This was processed with the company arteriocyte and set aside for later combination with the bone graft. The site was gently irrigated with saline and the skin was reapproximated with nylon suture. An intraoperative Doppler was used to identify the anterior tibial artery and dorsalis pedis. This structure was marked and avoided throughout the entire procedure. The left lower extremity was next exsanguinated via gravity exsanguination. The tourniquet was inflated. Attention was next directed to the anterolateral aspect of the ankle. A two and a half centimeter linear incision was made lateral to the extensor digitorum longus tendon and blunt dissection was performed down to the ankle capsule layer. Care was taken to identify, protect, and retract neurovascular structures at this point and throughout the remainder of the surgery. A deep incision next made to enter the ankle capsule and the previous arthrodesis site was visualized and palpated including the femoral head allograft. Soft tissue was gently mobilized around the site using a allen elevator. Intraoperative fluoroscopy was used guide several drill tunnels through the nonunion site. Next, the bone marrow aspirate was mixed with ignite bone graft and this was gently administered into the tunnels to allow future scaffolding osseous bridging. This was all done under intraoperative fluoroscopy imaging to confirm the trajectory and placement of the bone graft to further optimize healing. Next a 2 cm linear incision was made and blunt dissection was performed through the ankle capsule to the anterior medial aspect. Additional bone graft mixed with bone marrow aspirate was applied to this site. Next, attention was directed to the plantar foot in which a guidewire was applied from the plantar lateral aspect of the heel through the subtalar and ankle arthrodesis site into the distal tibia. One lateral calcaneus screw from her previous surgery was removed to allow passage of this 7.0 cannulated short threaded screw in the ideal position. This was applied according to standard AO fixation technique and was secured. Again intraoperative fluoroscopy was used to confirm proper placement. The tourniquet was deflated at this time and no pulsatile bleeding was noted. Brisk capillary refill time was noted to all digits the left foot. Next, size 10 wrenches were used to remove the external fixation device. Additionally, all half pins and wires were removed. Each site was debrided with instrumentation and saline irrigation was performed. Each exit point skin was reapproximated with 2-0 nylon. Next, additional arthrodesis hardware was placed with the use of intraoperative fluoroscopy including an additional posterior plantar calcaneus 7.0 [employer] cannulated screw spanning across the ankle arthrodesis site. An additional screw was applied to through the lateral aspect of the already remaining fibula plate direct medially through the talus allograft into the remaining medial malleolus to provide additional stability. All of these were applied utilizing standard AO fixation technique. Additional larger K wires were used to span from the talus head into the previous location talus body now replaced with a femoral head allograft to provide additional stability. These wires were cut and buried. The added hardware was checked for proper placement including trajectory. There was no evidence of instability, infection or purulence at any point throughout the case. Saline irrigation was performed. Capillary fill time remained brisk to her digits and no pulsatile bleeding was noted. Deep closure was achieved with 2-0 Vicryl. The skin sites were reapproximated with 2-0 nylon utilizing horizontal mattress and simple suture. A postoperative injection was administered as noted. A postoperative dressing consisting of Adaptic soaked in Betadine, gauze, abdominal pads, and Kerlix were applied. An additional well padded posterior mold splint was applied with the lower extremity in a neutral position including webril and fiberglass splint material. After procedure: The patient tolerated the procedure and anesthesia well. She was transported to the PACU with vital signs stable and vascular status intact to the left lower extremity. She will be admitted overnight for observation for pain control as well as for safe homebound status evaluation. Physical therapy will evaluate her tomorrow. She was advised to ice and elevate for additional pain and inflammation management. Strict nonweightbearing is advised to allow appropriate healing. I reviewed the case with hospitalist, Dr. Narvaez. It is noted this patient has struggled with remaining nonweightbearing and she lives alone. She has had revisional surgeries for this condition and is suffered from delayed healing, hardware failure, avascular necrosis resulting in collapse of the talus. She is at high risk for limb loss. This was considered a limb salvage procedure. I will follow her very close while in house. Medical management and DVT prophylaxis per primary admitting team is greatly appreciated. Kait West DPM, [facility]
--- NOTE | 2018-05-15 19:16 | PCM.HP.STD ---
Problem List (1) S/P ankle fusion Status: Acute Comment: Left History of Present Illness Date of Admission: 05/15/18 Chief Complaint: post-op pain control. The patient is a 52 year old F who has had a nonunion of her Odon[place]. Today underwent removal of her left external fixator and debridement and application of the ankle nonunion site with bone marrow aspirate and graft. Head internal fixation as well. Asked by podiatry to admit the patient for postop pain control. Currently, the patient is somnolent and unable to provide any history or answer any questions at this time. 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) Left leg pain (Chronic) Morbid obesity due to excess calories (Chronic) HTN (hypertension) (Chronic) HLD (hyperlipidemia) (Chronic) Allergies latex Adverse Reaction (Verified 05/15/18 11:55) Rash morphine Adverse Reaction (Verified 05/15/18 11:55) Vomiting sulfamethoxazole [From Bactrim] Adverse Reaction (Verified 05/15/18 11:55) Vomiting tramadol Adverse Reaction (Verified 05/15/18 11:55) Vomiting trimethoprim [From Bactrim] Adverse Reaction (Verified 05/15/18 11:55) Vomiting Home Medications: Ambulatory Orders Medication Instructions Recorded Aspirin [Aspirin, Baby] 81 mg PO QHS 07/17/16 Lisinopril [Zestril] 20 mg PO DAILY #30 tablet 07/21/16 Metformin HCl [Glucophage] 500 mg PO BIDCM #60 tablet 07/21/16 Gabapentin [Neurontin] 300 mg PO QHS 09/07/16 Sertraline HCl [Zoloft] 50 mg PO DAILY 09/07/16 Ondansetron [Zofran Odt] 4 mg PO Q8H PRN PRN #10 tablet 10/15/16 Lovastatin [Mevacor] 80 mg PO QHS 01/18/17 Acetaminophen [Tylenol Tablet] 650 mg PO Q6H PRN PRN tablet 08/07/17 Iron Polysaccharide Complex 150 mg PO DAILYCM #30 capsule 08/25/17 [Ferrex 150] Cholecalciferol (Vitamin D3) 2,000 unit PO DAILY 11/09/17 [Vitamin D3] Insulin NPH Human Isophane 20 unit SQ QHS 11/09/17 [Novolin N] Insulin NPH Human Isophane 22 unit SQ DAILY 11/09/17 [Novolin N] Insulin Regular, Human [Novolin R] 5 unit SC TID 11/09/17 Polyethylene Glycol 3350 [Miralax] 17 gm PO DAILY PRN 11/09/17 Ascorbic Acid [Vitamin C] 500 mg PO DAILY 05/14/18 Calcium Carbonate [Calcium] 500 mg PO DAILY 05/14/18 Surgical History: hysterectomy - RAINA w/ BLSOO, - - Abdominal abscess I&D, +MRSA 07/24, Breast abscess R breast, Previous left ankle surgery following fracture, hardware, eventual fusion and most recent arthrodesis as noted. Psychiatric History: Depression HEAD TELLER History: No pertinent HEAD TELLER history Smoking Status: Never smoker - *Family History Maternal History Items: Heart Disease Paternal History Items: Diabetes Sibling History Items: Heart Disease, Stroke Review of Systems Comment: Unable to obtain as the patient is somnolent and the postoperatively. VTE Information - Inpt Only VTE Present on Admission: No VTE Pharm Prophylaxis ordered?: Yes - Physical Exam General: - - Somnolence, afebrile. HEENT: Atraumatic, Normocephalic Neck: No Nodes, Thyroid Normal Size and Texture Lungs: Clear to auscultation, Diminished Cardiovascular: Regular rate, Regular Rhythm, Normal S1, Normal S2 Abdomen: Bowel Sounds Present, Soft, Non Tender, Non-Distended, No Hepato-splenomegaly Extremities: No edema, No Calf Tenderness, - - Cast over her distal left lower extremity, did not remove. Skin: No rashes, No breakdown Psych/Mental Status: - - Somnolent Vital Signs Temp Pulse Resp BP Pulse Ox 36.2 C L 90 16 137/80 H 93 05/15/18 18:36 05/15/18 19:00 05/15/18 19:00 05/15/18 19:00 05/15/18 19:00 Oxygen Flow Rate (L/min) 4 Oxygen Delivery Method Nasal Cannula Weight: 131.542 kg Body Mass Index (BMI) 42.8 Finger Stick Blood Glucose 258 Laboratory Tests Past 24 Hrs 05/15/18 05/15/18 05/15/18 11:55 11:55 11:55 PT 13.0 INR 1.0 APTT 27.2 Sodium 142 Potassium 4.3 Chloride 106 Carbon Dioxide 27.0 Anion Gap 9 BUN 21 H Creatinine 1.12 H Estim Creat Clear Calc 60.01 Est GFR (MDRD) Af Amer 65 Est GFR (MDRD) Non-Af 54 L BUN/Creatinine Ratio 18.8 Glucose 124 H Hemoglobin A1c 5.8 Calcium 9.3 Total Bilirubin 0.40 Direct Bilirubin 0.08 AST 13 L ALT 19 Alkaline Phosphatase 107 Total Protein 7.9 Albumin 3.4 Globulin 4.5 H Albumin/Globulin Ratio 0.8 L Vitamin D 25-Hydroxy 05/15/18 11:55 PT INR APTT Sodium Potassium Chloride Carbon Dioxide Anion Gap BUN Creatinine Estim Creat Clear Calc Est GFR (MDRD) Af Amer Est GFR (MDRD) Non-Af BUN/Creatinine Ratio Glucose Hemoglobin A1c Calcium Total Bilirubin Direct Bilirubin AST ALT Alkaline Phosphatase Total Protein Albumin Globulin Albumin/Globulin Ratio Vitamin D 25-Hydroxy Pending POC Glucose 05/15/18 12:03 POC Glucose 127 H Assessment/Plan All Active Problems S/P ankle fusion (Acute) Abdominal abscess (Resolved) MRSA (methicillin resistant staph aureus) culture positive (Resolved) 1. Status post removal of external fixator and internal fixation of left ankle Podiatry will be following Nonweightbearing left lower extremity Pain control PT OT Observation status 2. DVT prophylaxis with Lovenox Code Visit OBSV E&M: 17834 Initial observation care L2
--- NOTE | 2018-05-15 19:21 | HP.PCM_ITS ---
Problem List (1) S/P ankle fusion Status: Acute Comment: Left History of Present Illness Date of Admission: 05/15/18 Chief Complaint: post-op pain control. The patient is a 52 year old F who has had a nonunion of her Odonnell. Today underwent removal of her left external fixator and debridement and application of the ankle nonunion site with bone marrow aspirate and graft. Head internal fixation as well. Asked by podiatry to admit the patient for postop pain control. Currently, the patient is somnolent and unable to provide any history or answer any questions at this time. 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) Left leg pain (Chronic) Morbid obesity due to excess calories (Chronic) HTN (hypertension) (Chronic) HLD (hyperlipidemia) (Chronic) Allergies latex Adverse Reaction (Verified 05/15/18 11:55) Rash morphine Adverse Reaction (Verified 05/15/18 11:55) Vomiting sulfamethoxazole [From Bactrim] Adverse Reaction (Verified 05/15/18 11:55) Vomiting tramadol Adverse Reaction (Verified 05/15/18 11:55) Vomiting trimethoprim [From Bactrim] Adverse Reaction (Verified 05/15/18 11:55) Vomiting Home Medications: Ambulatory Orders Medication Instructions Recorded Aspirin [Aspirin, Baby] 81 mg PO QHS 07/17/16 Lisinopril [Zestril] 20 mg PO DAILY #30 tablet 07/21/16 Metformin HCl [Glucophage] 500 mg PO BIDCM #60 tablet 07/21/16 Gabapentin [Neurontin] 300 mg PO QHS 09/07/16 Sertraline HCl [Zoloft] 50 mg PO DAILY 09/07/16 Ondansetron [Zofran Odt] 4 mg PO Q8H PRN PRN #10 tablet 10/15/16 Lovastatin [Mevacor] 80 mg PO QHS 01/18/17 Acetaminophen [Tylenol Tablet] 650 mg PO Q6H PRN PRN tablet 08/07/17 Iron Polysaccharide Complex 150 mg PO DAILYCM #30 capsule 08/25/17 [Ferrex 150] Cholecalciferol (Vitamin D3) 2,000 unit PO DAILY 11/09/17 [Vitamin D3] Insulin NPH Human Isophane 20 unit SQ QHS 11/09/17 [Novolin N] Insulin NPH Human Isophane 22 unit SQ DAILY 11/09/17 [Novolin N] Insulin Regular, Human [Novolin R] 5 unit SC TID 11/09/17 Polyethylene Glycol 3350 [Miralax] 17 gm PO DAILY PRN 11/09/17 Ascorbic Acid [Vitamin C] 500 mg PO DAILY 05/14/18 Calcium Carbonate [Calcium] 500 mg PO DAILY 05/14/18 Surgical History: hysterectomy - RAINA w/ BLSOO, - - Abdominal abscess I&D, +MRSA 07/24, Breast abscess R breast, Previous left ankle surgery following fracture, hardware, eventual fusion and most recent arthrodesis as noted. 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 VTE Information - Inpt Only VTE Present on Admission: No VTE Pharm Prophylaxis ordered?: Yes - Physical Exam General: - - Somnolence, afebrile. HEENT: Atraumatic, Normocephalic Neck: No Nodes, Thyroid Normal Size and Texture Lungs: Clear to auscultation, Diminished Cardiovascular: Regular rate, Regular Rhythm, Normal S1, Normal S2 Abdomen: Bowel Sounds Present, Soft, Non Tender, Non-Distended, No Hepato- splenomegaly Extremities: No edema, No Calf Tenderness, - - Cast over her distal left lower extremity, did not remove. Skin: No rashes, No breakdown Psych/Mental Status: - - Somnolent Vital Signs Temp Pulse Resp BP Pulse Ox 36.2 C L 90 16 137/80 H 93 05/15/18 18:36 05/15/18 19:00 05/15/18 19:00 05/15/18 19:00 05/15/18 19:00 Oxygen Flow Rate (L/min) 4 Oxygen Delivery Method Nasal Cannula Weight: 131.542 kg Body Mass Index (BMI) 42.8 Finger Stick Blood Glucose 258 Laboratory Tests Past 24 Hrs 05/15/18 05/15/18 05/15/18 11:55 11:55 11:55 PT 13.0 INR 1.0 APTT 27.2 Sodium 142 Potassium 4.3 Chloride 106 Carbon Dioxide 27.0 Anion Gap 9 BUN 21 H Creatinine 1.12 H Estim Creat Clear Calc 60.01 Est GFR (MDRD) Af Amer 65 Est GFR (MDRD) Non-Af 54 L BUN/Creatinine Ratio 18.8 Glucose 124 H Hemoglobin A1c 5.8 Calcium 9.3 Total Bilirubin 0.40 Direct Bilirubin 0.08 AST 13 L ALT 19 Alkaline Phosphatase 107 Total Protein 7.9 Albumin 3.4 Globulin 4.5 H Albumin/Globulin Ratio 0.8 L Vitamin D 25-Hydroxy 05/15/18 11:55 PT INR APTT Sodium Potassium Chloride Carbon Dioxide Anion Gap BUN Creatinine Estim Creat Clear Calc Est GFR (MDRD) Af Amer Est GFR (MDRD) Non-Af BUN/Creatinine Ratio Glucose Hemoglobin A1c Calcium Total Bilirubin Direct Bilirubin AST ALT Alkaline Phosphatase Total Protein Albumin Globulin Albumin/Globulin Ratio Vitamin D 25-Hydroxy Pending POC Glucose 05/15/18 12:03 POC Glucose 127 H Assessment/Plan All Active Problems S/P ankle fusion (Acute) Abdominal abscess (Resolved) MRSA (methicillin resistant staph aureus) culture positive (Resolved) 1. Status post removal of external fixator and internal fixation of left ankle * Podiatry will be following * Nonweightbearing left lower extremity * Pain control * PT OT * Observation status 2. DVT prophylaxis with Lovenox Code Visit OBSV E&M: 47672 Initial observation care L2
[2018-05-15 19:31] LABS: Bedside Glucose 220 mg/dL (70-110)
[2018-05-15 22:01] LABS: Bedside Glucose 222 mg/dL (70-110)
[2018-05-15] MEDS: Aspirin 81 MG TAB.CHEW PO (22:50)
[2018-05-15] MEDS: Atorvastatin Calcium 20 MG Tablet PO (22:50)
[2018-05-15] MEDS: Insulin NPH Human 100 UNITS/ML PEN 20 UNITS SC (22:50)
[2018-05-15] MEDS: Gabapentin 300 MG Capsule PO (22:50)
[2018-05-15] MEDS: Ondansetron ODT 4 MG Tablet PO (23:03)
[2018-05-15] MEDS: Ketorolac 30 MG/ML Syringe IV (23:04)
[2018-05-16 00:02] VITALS: BP 130/76; PULSE 81; RESP 18; TEMP 36.6; O2SAT 100
[2018-05-16 06:00] VITALS: BP 130/62; PULSE 84; RESP 18; TEMP 36.7; O2SAT 96
[2018-05-16] MEDS: Ketorolac 30 MG/ML Syringe IV (06:32)
[2018-05-16 06:46] LABS: Bedside Glucose 144 mg/dL (70-110)
[2018-05-16 07:21] LABS: Absolute Lymphocyte Count 1.56 X10^3/ul (0.83-4.51); Absolute Neutrophil Count 7.7 X10^3/uL (2.0-7.7); Basophil# 0.02 X10^3/uL; Basophil% 0.2 % (0-1); Eosinophil# 0.09 X10^3/uL; Eosinophils% 0.9 % (0-5); Hematocrit 35.4 % (37-47); Hemoglobin 10.8 g/dl (12.0-15.0); Lymphocyte # 1.56 X10^3/ul (4.0); Lymphocyte % 15.2 % (19-41); Mean Corp Hgb Conc 30.5 g/gl (32-36); Mean Corpuscular Volume 85.3 fL (81-99); Mean Platelet Vol. 10.6 fl (6.2-12.0); Monocyte# 0.82 X10^3/uL; Neutrophil # 7.74 X10^3/uL (2.7-7.7); Neutrophil % 75.5 % (47-70); Platelet Count 217 K/mm3 (150-450); RBC Distribution Width CV 16.2 % (11.6-14.6); RBC Distribution Width SD 49.8 fl (35.1-43.9); Red Blood Count 4.15 M/mm3 (4.2-5.4); White Blood Count 10.3 K/mm3 (4.4-11.0)
[2018-05-16 07:48] LABS: POSITIVE COUNT NO; POSITIVE DIFFERENTIAL NO; POSITIVE MORPHOLOGY NO
[2018-05-16 08:15] VITALS: BP 127/69; PULSE 94; RESP 18; TEMP 36.6; O2SAT 99
[2018-05-16] MEDS: Insulin NPH Human 100 UNITS/ML PEN 22 UNITS SC (08:23)
[2018-05-16] MEDS: Insulin Lispro 100 UNIT/ML INSULN.PEN SC ×3 (08:24→16:11)
[2018-05-16] MEDS: Iron Polysaccharide Complex 150 MG CAPSULE PO (08:24)
[2018-05-16] MEDS: Calcium (Elemental) 500 MG Tablet PO (08:29)
[2018-05-16] MEDS: Ascorbic Acid 500 MG Tablet PO (08:29)
[2018-05-16 09:43] LABS: Vitamin D,25 Hydroxy 42.2 ng/mL (29.95-100.01)
[2018-05-16 09:48] LABS: Vitamin D,25 Hydroxy 38.1 ng/mL (29.95-100.01)
[2018-05-16] MEDS: Enoxaparin 40 MG/0.4 ML Syringe SC (11:04)
[2018-05-16] MEDS: Sertraline 50 MG Tablet PO (11:05)
[2018-05-16] MEDS: Lisinopril 20 MG Tablet PO (11:05)
[2018-05-16] MEDS: 0.9% NaCl Peripheral Flush Adult/Peds IV (11:07)
[2018-05-16 11:58] VITALS: BP 136/64; PULSE 96; RESP 18; TEMP 36.8; O2SAT 98
[2018-05-16 12:10] LABS: Bedside Glucose 148 mg/dL (70-110)
--- NOTE | 2018-05-16 12:39 | PN_ITS ---
Subjective: This 52-year-old female was seen bedside today postoperative day #1 removal of the left lower extremity external fixation device, debridement of ankle arthrodesis site nonunion with application of bone marrow aspirate and bone graft and additional application of percutaneously applied internal fixation. She denies fever, chill, nausea, vomiting, calf pain, chest pain, shortness of breath. She is eating lunch. She currently has no pain however reports she thinks her regional block is still in effect. - Physical Exam General: Alert, Oriented x3, Cooperative HEENT: Atraumatic Extremities: No cyanosis, Capillary Refill Less than 3 Seconds - All digits of the left lower extremity, No Calf Tenderness - Negative Gabriel sign left lower extremity, Edema - Mild left lower extremity Skin: Ulcer/ Wound - The postoperative dressing and splint are clean, dry, and intact without strikethrough noted. There is no erythema or streaking distal or proximal to this dressing. Musculoskeletal: No Tenderness to Palpation of Joints or Extremities, - - Active range of motion digits left foot. Neurological: - - Diminished sensation light touch to all toes of left foot Psych/Mental Status: Normal Affect, Appropriate Vital Signs Temp Pulse Resp BP Pulse Ox 98.2 F 96 18 136/64 H 98 05/16/18 11:58 05/16/18 11:58 05/16/18 11:58 05/16/18 11:58 05/16/18 11:58 Oxygen Flow Rate (L/min) 2 Oxygen Delivery Method Room Air Weight: 131.542 kg Body Mass Index (BMI) 42.8 Finger Stick Blood Glucose 220 Intake and Output for Last 24 Hours 05/14/18 05/15/18 05/16/18 23:59 23:59 23:59 Intake Total 2800 / 2800 680 / 680 Balance 2800 / 2800 680 / 680 Laboratory Tests Past 24 Hrs 05/15/18 05/15/18 05/16/18 11:55 11:55 05:48 WBC Corrected WBC RBC Hgb Hct MCV MCH MCHC RDW RDW Differential Plt Count MPV Immature Gran % (Auto) Neut % (Auto) Lymph % (Auto) Morton % (Auto) Eos % (Auto) Baso % (Auto) Absolute Neuts (auto) Absolute Lymphs (auto) Total Counted Neutrophils % (Manual) Band Neutrophils % Lymphocytes % (Manual) Monocytes % (Manual) Eosinophils % (Manual) Basophils % (Manual) Metamyelocytes % Myelocytes % Promyelocytes % Blast Cells % Plasma Cell % (Manual) Other Cells % Nucleated RBCs/100 WBC Differential Comment Diff Path Review Hypersegmented Neuts Atypical Lymphocytes Reactive Lymphocytes Smudge Cells Toxic Granulation Dohle Bodies Maximo Rods Platelet Estimate Plt Morphology Comment RBC Morphology Polychromasia Hypochromasia Poikilocytosis Basophilic Stippling Anisocytosis Microcytosis Macrocytosis Spherocytes Sickle Cells Target Cells Tear Drop Cells Ovalocytes Stomatocytes Brewster-Schuyler Bodies Mekhi Cells Bite Cells Acanthocytes (Spur) Rouleaux Schistocytes Hemoglobin A1c 5.8 Vitamin D 25-Hydroxy 42.2 38.1 05/16/18 05/16/18 05:48 07:00 WBC Cancelled 10.3 Corrected WBC Cancelled RBC Cancelled 4.15 L Hgb Cancelled 10.8 L Hct Cancelled 35.4 L MCV Cancelled 85.3 MCH Cancelled 26.0 L MCHC Cancelled 30.5 L RDW Cancelled 16.2 H RDW Differential Cancelled 49.8 H Plt Count Cancelled 217 MPV Cancelled 10.6 Immature Gran % (Auto) Cancelled 0.200 Neut % (Auto) Cancelled 75.5 H Lymph % (Auto) Cancelled 15.2 L Morton % (Auto) Cancelled 8.0 Eos % (Auto) Cancelled 0.9 Baso % (Auto) Cancelled 0.2 Absolute Neuts (auto) Cancelled 7.7 Absolute Lymphs (auto) Cancelled 1.56 Total Counted Cancelled Not Reportable Neutrophils % (Manual) Cancelled Band Neutrophils % Cancelled Lymphocytes % (Manual) Cancelled Monocytes % (Manual) Cancelled Eosinophils % (Manual) Cancelled Basophils % (Manual) Cancelled Metamyelocytes % Cancelled Myelocytes % Cancelled Promyelocytes % Cancelled Blast Cells % Cancelled Plasma Cell % (Manual) Cancelled Other Cells % Cancelled Nucleated RBCs/100 WBC Cancelled Differential Comment Cancelled Diff Path Review Cancelled Hypersegmented Neuts Cancelled Atypical Lymphocytes Cancelled Reactive Lymphocytes Cancelled Smudge Cells Cancelled Toxic Granulation Cancelled Dohle Bodies Cancelled Maximo Rods Cancelled Platelet Estimate Cancelled Plt Morphology Comment Cancelled RBC Morphology Cancelled Polychromasia Cancelled Hypochromasia Cancelled Poikilocytosis Cancelled Basophilic Stippling Cancelled Anisocytosis Cancelled Microcytosis Cancelled Macrocytosis Cancelled Spherocytes Cancelled Sickle Cells Cancelled Target Cells Cancelled Tear Drop Cells Cancelled Ovalocytes Cancelled Stomatocytes Cancelled Brewster-Schuyler Bodies Cancelled Mekhi Cells Cancelled Bite Cells Cancelled Acanthocytes (Spur) Cancelled Rouleaux Cancelled Schistocytes Cancelled Hemoglobin A1c Vitamin D 25-Hydroxy POC Glucose 05/16/18 05/16/18 05/15/18 12:02 06:36 21:19 POC Glucose 148 H 144 H 222 H 05/15/18 19:28 POC Glucose 220 H Medical Necessity - Tobacco Use Smoking Status: Never smoker Assessment/Plan All Active Problems S/P ankle fusion (Acute) Abdominal abscess (Resolved) MRSA (methicillin resistant staph aureus) culture positive (Resolved) postoperative day #1 removal of the left lower extremity external fixation device, debridement of ankle arthrodesis site nonunion with application of bone marrow aspirate and bone graft and additional application of percutaneously applied internal fixation (secondary to left ankle fracture with malunion with complicated healing course of hardware failure, nonunions, avascular necrosis and collapse of the talus) Diabetes with neuropathy Vitamin D deficiency Other comorbidities Fall risk Delayed healing DVT prophylaxis I reviewed and discussed her case today. Her postoperative x-rays were reviewed with ankle and rectus position with an external fixation across revisional ankle arthrodesis with bone graft in place. No acute injuries are noted. Her vital signs remained stable and she is afebrile. She does not demonstrate leukocytosis. Her hemoglobin of 10.8 is noted today. Her vitamin D is 38 and I recommend continued [id number] supplementation that was already initiated by her primary care physician. I recommend strict nonweightbearing status the left lower extremity with the surgical site in the posterior mold. She was seen by physical therapy at this time. She does have assistive devices and a wheelchair at home. She has in the past struggled with maintaining this nonweightbearing status once she does remain home and has compromised previous surgical intervention. Her pain is controlled at this time and it is not clear for regional block has worn off yet; this will be monitored. I do not suspect any sign of infection in surgery yesterday do not recommend antibiotics. I recommend continued [id number] vitamin D supplementation and bone stimulator use to optimize healing. Medical management and DVT prophylaxis per primary team is greatly appreciated. I plan to check in with her again this evening to confirm if her pain is controlled and to further determine if her return home this evening is safe. Discharge home this evening or tomorrow as likely she continues to do well. This case is discussed with the hospitalist, Dr. Islas. I will continue to follow her closely in house. Discharge prescriptions were prepared and placed in the chart in the event she is discharged soon including oxycodone if needed for pain and Xarelto for DVT prophylaxis. I answered all of her questions. Kait West DPM, FACF[facility] [phone]
[2018-05-16] MEDS: oxyCODONE 5 MG Tablet PO (14:58)
[2018-05-16] MEDS: Insulin Lispro 100 UNIT/ML INSULN.PEN SQ (16:11)
[2018-05-16] MEDS: Acetaminophen 325 MG Tablet 650 MG PO (16:12)
[2018-05-16 16:26] LABS: Bedside Glucose 173 mg/dL (70-110)
[2018-05-16 16:58] VITALS: BP 134/45; PULSE 102; RESP 18; TEMP 36.8; O2SAT 95
--- NOTE | 2018-05-16 17:50 | DCINST_ITS ---
Discharge Activity: Use Walker, Use Crutches, - - non weightbearing left lower extremity . keep dressing and splint clean and intact until follow up Weight Bearing Status: No weight bearing Keep extremity elevated above heart level: Left Leg Call your doctor if your incision/area has: Continuous Slow Oozing, Sudden Increased Bleeding, Increased Pain/ Swelling, Increased Redness, Foul Smelling Discharge, Swelling at the incision site Call your doctor if you observe: Fever of 101 or Higher, Coldness, Increased Pain, Numbness or Tingling, Calf discomfort, Uncontrolled pain Cleanse incision/area with: Keep Dressing Clean & Dry Allergies/Adverse Reactions: Allergies latex Adverse Reaction (Verified 05/15/18 11:55) Rash morphine Adverse Reaction (Verified 05/15/18 11:55) Vomiting sulfamethoxazole [From Bactrim] Adverse Reaction (Verified 05/15/18 11:55) Vomiting tramadol Adverse Reaction (Verified 05/15/18 11:55) Vomiting trimethoprim [From Bactrim] Adverse Reaction (Verified 05/15/18 11:55) Vomiting Medications to take at Discharge Aspirin [Aspirin, Baby] 81 mg PO QHS 07/17/16 Lisinopril [Zestril] 20 mg PO DAILY #30 tablet 07/21/16 Metformin HCl [Glucophage] 500 mg PO BIDCM #60 tablet 07/21/16 Gabapentin [Neurontin] 300 mg PO QHS 09/07/16 Sertraline HCl [Zoloft] 50 mg PO DAILY 09/07/16 Ondansetron [Zofran Odt] 4 mg PO Q8H PRN PRN #10 tablet 10/15/16 Lovastatin [Mevacor] 80 mg PO QHS 01/18/17 Acetaminophen [Tylenol Tablet] 650 mg PO Q6H PRN PRN tablet 08/07/17 Iron Polysaccharide Complex [Ferrex 150] 150 mg PO DAILYCM #30 capsule 08/25/17 Cholecalciferol (Vitamin D3) [Vitamin D3] 2,000 unit PO DAILY 11/09/17 Insulin NPH Human Isophane [Novolin N] 20 unit SQ QHS 11/09/17 Insulin NPH Human Isophane [Novolin N] 22 unit SQ DAILY 11/09/17 Insulin Regular, Human [Novolin R] 5 unit SC TID 11/09/17 Polyethylene Glycol 3350 [Miralax] 17 gm PO DAILY PRN 11/09/17 Ascorbic Acid [Vitamin C] 500 mg PO DAILY 05/14/18 Calcium Carbonate [Calcium] 500 mg PO DAILY 05/14/18 Primary Care Physician: Alexander Velez MD [Primary Care Provider] - Test Results: Test results from this visit will be discussed in further detail at your follow- up appointment, if applicable. Please Follow Up With: Kait West DPM When: [facility]; scheduled for Monday; [phone] Proposed Discharge Date: 05/16/18
--- NOTE | 2018-05-16 18:36 | DCINST_ITS ---
- Discharge Diagnoses Current Active Problems: Current Active and Chronic Problems Type 2 diabetes mellitus with diabetic polyneuropathy (Chronic) Charcot's joint of ankle (Chronic) Avascular necrosis (Chronic) You will use the following diet at home:: Calorie/Carbohydrate Controlled ( specify 1200, 1400, etc) - 1800 dragan Your food should be the consistency of: Regular Your liquids should be the consistency of: Regular/Thin Discharge Activity: Use Walker, Use Crutches, - - non weightbearing left lower extremity . keep dressing and splint clean and intact until follow up Weight Bearing Status: No weight bearing Keep extremity elevated above heart level: Left Leg Call your doctor if your incision/area has: Continuous Slow Oozing, Sudden Increased Bleeding, Increased Pain/ Swelling, Increased Redness, Foul Smelling Discharge, Swelling at the incision site Call your doctor if you observe: Fever of 101 or Higher, Coldness, Increased Pain, Numbness or Tingling, Calf discomfort, Uncontrolled pain Cleanse incision/area with: Keep Dressing Clean & Dry Allergies/Adverse Reactions: Allergies latex Adverse Reaction (Verified 05/15/18 11:55) Rash morphine Adverse Reaction (Verified 05/15/18 11:55) Vomiting sulfamethoxazole [From Bactrim] Adverse Reaction (Verified 05/15/18 11:55) Vomiting tramadol Adverse Reaction (Verified 05/15/18 11:55) Vomiting trimethoprim [From Bactrim] Adverse Reaction (Verified 05/15/18 11:55) Vomiting Medications to take at Discharge Aspirin [Aspirin, Baby] 81 mg PO QHS 07/17/16 Lisinopril [Zestril] 20 mg PO DAILY #30 tablet 07/21/16 Metformin HCl [Glucophage] 500 mg PO BIDCM #60 tablet 07/21/16 Gabapentin [Neurontin] 300 mg PO QHS 09/07/16 Sertraline HCl [Zoloft] 50 mg PO DAILY 09/07/16 Ondansetron [Zofran Odt] 4 mg PO Q8H PRN PRN #10 tablet 10/15/16 Lovastatin [Mevacor] 80 mg PO QHS 01/18/17 Acetaminophen [Tylenol Tablet] 650 mg PO Q6H PRN PRN tablet 08/07/17 Iron Polysaccharide Complex [Ferrex 150] 150 mg PO DAILYCM #30 capsule 08/25/17 Cholecalciferol (Vitamin D3) [Vitamin D3] 2,000 unit PO DAILY 11/09/17 Insulin NPH Human Isophane [Novolin N] 20 unit SQ QHS 11/09/17 Insulin NPH Human Isophane [Novolin N] 22 unit SQ DAILY 11/09/17 Insulin Regular, Human [Novolin R] 5 unit SC TID 11/09/17 Polyethylene Glycol 3350 [Miralax] 17 gm PO DAILY PRN 11/09/17 Ascorbic Acid [Vitamin C] 500 mg PO DAILY 05/14/18 Calcium Carbonate [Calcium] 500 mg PO DAILY 05/14/18 Oxycodone [Oxyir] 5 mg PO Q6H PRN PRN 7 Days #20 tablet 05/16/18 Rivaroxaban [Xarelto] 10 mg PO DAILY #30 tablet 05/16/18 The following prescriptions were given: Rivaroxaban [Xarelto] 10 mg PO DAILY #30 tablet Primary Care Physician: Alexander Velez MD [Primary Care Provider] - Please follow up with your Primary Care Physician in: at regular scheduled time Test Results: Test results from this visit will be discussed in further detail at your follow- up appointment, if applicable. Please Follow Up With: Kait West DPM When: [facility] week [facility]; scheduled for Monday; [phone] Proposed Discharge Date: 05/16/18
[2018-05-16 19:05] VITALS: BP 138/60; PULSE 99; RESP 18; TEMP 37; O2SAT 94
--- NOTE | 2018-05-18 08:32 | PCM.DC.SUM ---
Discharge Date and Diagnosis Date of Admission: 05/15/18 Date of Discharge: 05/16/18 - Primary Discharge Diagnosis #1 removal of left external fixator, debridement and application of ankle nonunion site with application of bone marrow aspirate and ignite bone graft, percutaneous ankle arthrodesis internal fixation placement #2 nonunion of left ankle #3 type 2 diabetes #4 diabetic neuropathy #5 hypertension #6 hyperlipidemia - Secondary Discharge Diagnosis Chronic Problems Type 2 diabetes mellitus with diabetic polyneuropathy (Chronic) Type 2 diabetes mellitus with diabetic polyneuropathy (Chronic) Charcot's joint of ankle (Chronic) Avascular necrosis (Chronic) Avascular necrosis of bone (Chronic) Nonunion of arthrodesis (Chronic) Nausea (Chronic) Neuropathic pain (Chronic) Morbid obesity (Chronic) Depression (Chronic) Arthritis of ankle, 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) Left leg pain (Chronic) Morbid obesity due to excess calories (Chronic) HTN (hypertension) (Chronic) HLD (hyperlipidemia) (Chronic) Hospital Course and Treatment Operations: - - Removal of left external fixation, debridement and application of left ankle nonunion site with application of bone marrow aspirate and ignite bone graft, percutaneous ankle arthrodesis internal fixation placement Procedures: None Summary of Care Provided: The patient is a 52 year old F who underwent surgery at [facility] by the podiatry service for nonunion of her left ankle, patient had a past history of avascular necrosis of her left ankle with previous surgery and external fixation. Patient underwent surgery on 05/15/18, she was placed into observation status on [facility] 3 and monitored. She received pain medications and was seen by PT and OT. Patient felt she could return to home and did not require a custodial facility. On 05/16/18, patient was seen and examined and felt to be in stable condition for return home Discharge Activity: Use Walker, Use Crutches, - - non weightbearing left lower extremity . keep dressing and splint clean and intact until follow up Weight Bearing Status: No weight bearing Keep extremity elevated above heart level: Left Leg Call your doctor if your incision/area has: Continuous Slow Oozing, Sudden Increased Bleeding, Increased Pain/ Swelling, Increased Redness, Foul Smelling Discharge, Swelling at the incision site Call your doctor if you observe: Fever of 101 or Higher, Coldness, Increased Pain, Numbness or Tingling, Calf discomfort, Uncontrolled pain Cleanse incision/area with: Keep Dressing Clean & Dry Home Medications: Medications to take at Discharge Aspirin [Aspirin, Baby] 81 mg PO QHS 07/17/16 Lisinopril [Zestril] 20 mg PO DAILY #30 tablet 07/21/16 Metformin HCl [Glucophage] 500 mg PO BIDCM #60 tablet 07/21/16 Gabapentin [Neurontin] 300 mg PO QHS 09/07/16 Sertraline HCl [Zoloft] 50 mg PO DAILY 09/07/16 Ondansetron [Zofran Odt] 4 mg PO Q8H PRN PRN #10 tablet 10/15/16 Lovastatin [Mevacor] 80 mg PO QHS 01/18/17 Acetaminophen [Tylenol Tablet] 650 mg PO Q6H PRN PRN tablet 08/07/17 Iron Polysaccharide Complex [Ferrex 150] 150 mg PO DAILYCM #30 capsule 08/25/17 Cholecalciferol (Vitamin D3) [Vitamin D3] 2,000 unit PO DAILY 11/09/17 Insulin NPH Human Isophane [Novolin N] 20 unit SQ QHS 11/09/17 Insulin NPH Human Isophane [Novolin N] 22 unit SQ DAILY 11/09/17 Insulin Regular, Human [Novolin R] 5 unit SC TID 11/09/17 Polyethylene Glycol 3350 [Miralax] 17 gm PO DAILY PRN 11/09/17 Ascorbic Acid [Vitamin C] 500 mg PO DAILY 05/14/18 Calcium Carbonate [Calcium] 500 mg PO DAILY 05/14/18 Oxycodone [Oxyir] 5 mg PO Q6H PRN PRN 7 Days #20 tablet 05/16/18 Rivaroxaban [Xarelto] 10 mg PO DAILY #30 tablet 05/16/18 Following Prescrptions Were Given to Patient: Rivaroxaban [Xarelto] 10 mg PO DAILY #30 tablet Primary Care Physician: Alexander Velez MD [Primary Care Provider] - Please follow up with your Primary Care Physician in: at regular scheduled time Please Follow Up With: Kait West DPM When: [facility] week [facility]; scheduled for Monday; [phone] Disposition: Home Minutes spent on discharge:: 30 Patient Condition:: Stable Medical Necessity - Tobacco Use Smoking Status: Never smoker Meaningful Use Info Meaningful Use Diagnoses (Choose all that apply): None applicable Code Visit OBSV E&M: 47396 Observation care discharge
== END 2018-05-16 19:25 | disposition home or self-care (01) ==
LOC: SDC 19:50 → MS3 05-16 07:10
PROVIDERS: Podiatrist; Family Provider Family Medicine; PCP Family Medicine; Visit Provider Internal Medicine
PROC: (CPT 28485; principal; 2018-05-15 12:45)
DX: M96.0 Pseudarthrosis after fusion or arthrodesis (principal); Y83.8 Other surgical procedures as the cause of abnormal reaction of the patient, or of later complication, without mention of misadventure at the time of the procedure; E11.42 Type 2 diabetes mellitus with diabetic polyneuropathy; E11.610 Type 2 diabetes mellitus with diabetic neuropathic arthropathy; F32.9 Major depressive disorder, single episode, unspecified; Z79.899 Other long term (current) drug therapy; Z79.82 Long term (current) use of aspirin; Z79.4 Long term (current) use of insulin; G25.81 Restless legs syndrome; Z86.14 Personal history of Methicillin resistant Staphylococcus aureus infection; E11.22 Type 2 diabetes mellitus with diabetic chronic kidney disease; I12.9 Hypertensive chronic kidney disease with stage 1 through stage 4 chronic kidney disease, or unspecified chronic kidney disease; E78.5 Hyperlipidemia, unspecified; N18.3 Chronic kidney disease, stage 3 (moderate); E11.65 Type 2 diabetes mellitus with hyperglycemia; E66.01 Morbid (severe) obesity due to excess calories; Z68.41 Body mass index [BMI] 40.0-44.9, adult; Z71.3 Dietary counseling and surveillance
CPT/HCPCS: 20694; 29907; 64445; 36415; 73630; 76000; 80053; 80076; 82306; 82962; 83036; 85025; 85610; 85730; 96372; 96374; 96376; 97162; 97165; 99218; C1713; J7040; J7120; A4216; G0378; G0379; J2405; J3490

== ENCOUNTER 2018-08-09 08:03 | Day surgery (SDC) | payer MEDICAID, SELFPAY ==
[2018-08-09] VITALS (8 sets, daily range): BP systolic 114–151; BP diastolic 60–69; PULSE 72–82; RESP 14–18; TEMP 36.8–37.2; O2SAT 93–98; BMI 48.6
[2018-08-09 08:51] LABS: Bedside Glucose 139 mg/dL (70-110)
[2018-08-09] MEDS: Cefazolin 2 GM in 0.9% Normal Saline 100 ML IV (09:32)
--- NOTE | 2018-08-09 09:45 | RAD_ITS ---
STUDY: X-RAY - LEFT ANKLE REASON FOR EXAM: Female, 52 years old. Hardware removal TECHNIQUE: 4 limited intraoperative view(s) of the ankle. COMPARISON: None. FINDINGS: 4 Limited intraoperative views of the left ankle were performed as the patient has undergone hardware removal from left ankle. No demonstrated complication on these limited studies RAD/Ankle min 3 Views IMPRESSION: Hardware removal Electronically Signed: Lj Bills MD at 15:44 EDT , Service support ,
[2018-08-09] MEDS: Bupivacaine Mpf 0.5% 30 ML VIAL (09:56)
--- NOTE | 2018-08-09 10:10 | PCM.IMDPSTOP ---
Problem List (1) Pain from implanted hardware Status: Acute (2) Left ankle pain Status: Chronic (3) Charcot's joint, left ankle and foot Status: Chronic Immediate Post-Op Note Date of Procedure: 08/09/18 - Strapping Machine Operator: Mariano Deleon PGY2, Surgeon: Kait West DPM Primary Surgeon/Physician: Kait West DPM collateral specialist: none Pre-Operative Diagnosis: left painful foot hardware Post-Operative Diagnosis: left painful foot hardware Surgery/Procedure Performed:: removal of painful hardware, left foot Description of Surgical Findings:: no purulence, hemostasis controlled, previous arthrodesis site stability maintain See detailed operation report The patient tolerated the procedure and anesthesia well. She will be transferred to the PACU with vital signs stable and vascular status intact to left lower extremity. Postoperative orders will be entered. She will be discharged home upon continued stability. Estimated Blood Loss: <5 mL Specimen's removed: k wire Type of Anesthesia:: Local - LMA - Admit VTE Documentation VTE Present on Admission: No VTE Mechan Device Prophylaxis: SCD's VTE Pharm Prophylaxis ordered?: No Reason prophylaxis not ordered:: Treatment Not Indicated
--- NOTE | 2018-08-09 10:13 | OP.PN_ITS ---
Problem List (1) Pain from implanted hardware Status: Acute (2) Left ankle pain Status: Chronic (3) Charcot's joint, left ankle and foot Status: Chronic Immediate Post-Op Note Date of Procedure: 08/09/18 - Satellite Dish Installer: Mariano Deleon PGY2, Surgeon: Kait West DPM Primary Surgeon/Physician: Kait West DPM elder assistant: none Pre-Operative Diagnosis: left painful foot hardware Post-Operative Diagnosis: left painful foot hardware Surgery/Procedure Performed:: removal of painful hardware, left foot Description of Surgical Findings:: no purulence, hemostasis controlled, previous arthrodesis site stability maintain See detailed operation report The patient tolerated the procedure and anesthesia well. She will be transferred to the PACU with vital signs stable and vascular status intact to left lower extremity. Postoperative orders will be entered. She will be discharged home upon continued stability. Estimated Blood Loss: <5 mL Specimen's removed: k wire Type of Anesthesia:: Local - LMA - Admit VTE Documentation VTE Present on Admission: No VTE Mechan Device Prophylaxis: SCD's VTE Pharm Prophylaxis ordered?: No Reason prophylaxis not ordered:: Treatment Not Indicated
--- NOTE | 2018-08-09 10:22 | PCM.OPRPT ---
Problem List (1) Pain from implanted hardware Status: Acute (2) Left ankle pain Status: Chronic (3) Charcot's joint, left ankle and foot Status: Chronic Report of Operation Date of Procedure: 08/09/18 - White Sugar Syrup Operator: Mariano Deleon PGY2, Surgeon: Kait West DPM Pre-Operative Diagnosis: left painful foot hardware Post-Operative Diagnosis: left painful foot hardware Surgery/Procedure Performed:: removal of painful hardware, left foot Description of Surgical Findings:: no purulence, hemostasis controlled, previous arthrodesis site stability maintain See detailed operation report The patient tolerated the procedure and anesthesia well. She will be transferred to the PACU with vital signs stable and vascular status intact to left lower extremity. Postoperative orders will be entered. She will be discharged home upon continued stability. 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 She had additional application of bone graft and bone marrow aspirate to her delayed healing site with additional internal fixation placed. At this time one of the wires is causing skin irritation to the top of the foot and she would like this removed. She has been taking vitamin D supplements, uses a bone stimulator, and has remained compliant with her weightbearing status. She was recently fitted for a [place] walker as well to help with this transition period. Clinically her neurovascular status remains intact. She does not demonstrate any clinical, systemic, or local signs of infection. She did not have pain on palpation to the arthrodesis site and her ankle remains in a rectus position. The patient was medically cleared by her primary care physician, Dr. Velez. I reviewed her history and physical exam and her preoperative diagnostic data including CBC, CMP, hemoglobin A1c of 6.3%, and ekg. The preoperative indications, planned procedure, possible benefits, risks, complications, anticipated healing time and management were discussed in detail with patient. She understands and elects to proceed with surgery at this time. She understands the complications may include but are not limited to the following: Pain, scarring, swelling, continued delayed or nonhealing of the bone or wounds, under or overcorrection, need for further surgery, hardware failure, blood clot, loss of limb/function/life, and allergic reaction. No guarantees were made. I answered all of her questions to her satisfaction. The informed surgical consent and her limb were signed. Procedure in detail: The patient was transported to the operating room via cart and placed on the operating table in the supine position. Final verification of patient, surgery, and limb designation was performed via the timeout procedure. A preoperative left lower extremity local anesthetic block was administered via the podiatry team. LMA anesthesia was initiated by the anesthesia team. A well-padded pneumatic left mid calf tourniquet was placed however was not utilized. A Doppler was used to identify the anterior tibial artery and dorsalis pedis. This structure was marked and avoided throughout the entire procedure. The left lower extremity was prepped and draped in typical standard format. Attention was first directed to the dorsal foot/anterior ankle where her prominent painful wire was noted. A 1 cm linear incision was made just proximal to the site and blunt dissection was performed through the soft tissue taking care to identify, protect, and retract all neurovascular structures at this point and recommended surgery. After careful dissection, the prominent wire was identified and removed in total. This adjacent area was evaluated and there was no signs of devitalized tissue, abscess, purulence or infection. Intra operative radiographs of the foot and ankle were obtained and this confirmed the prominent painful wire was removed. No other acute fractures or dislocations were noted. The arthrodesis site remains intact with progressive healing. This was irrigated copiously with normal saline. The skin was reapproximated with 4-0 nylon in horizontal mattress technique. The tourniquet was not utilized. Brisk capillary refill time was noted throughout the and after the procedure. A postoperative dressing was applied and consisted of Betadine gauze, Kerlix, and Jeferson wrap. A well-padded posterior mold was also applied and secured with Jeferson wraps. After procedure: The patient tolerated the procedure and anesthesia well. She was transported to the PACU with vital signs stable and vascular status intact to the left lower extremity. She was advised to ice and elevate for pain and inflammation management. Postoperative pain medication prescription was provided and she was advised to take only as needed; [place]. To keep her dressing and splint clean dry and intact until follow-up with the [facility] next week. She will will remain nonweightbearing until the incision heals and then she will be further progressed with the [place] walker. She will be discharged home today and all orders were entered electronically. Kait West DPM, FACFAS [facility] - Complications none
--- NOTE | 2018-08-09 10:30 | DCINST_ITS ---
Discharge Diet: No Restrictions Discharge Activity: May not drive while taking narcotic pain medications., Use Walker Weight Bearing Status: No weight bearing - keep splint and dressing intact Keep extremity elevated above heart level: Left Leg Call your doctor if your incision/area has: Continuous Slow Oozing, Sudden Increased Bleeding, Increased Pain/ Swelling, Increased Redness, Foul Smelling Discharge, Swelling at the incision site Call your doctor if you observe: Fever of 101 or Higher, Calf discomfort, Uncontrolled pain Cleanse incision/area with: Keep Dressing Clean & Dry Allergies/Adverse Reactions: Allergies latex Adverse Reaction (Verified 08/07/18 15:33) Rash morphine Adverse Reaction (Verified 08/07/18 15:33) Vomiting sulfamethoxazole [From Bactrim] Adverse Reaction (Verified 08/07/18 15:33) Vomiting tramadol Adverse Reaction (Verified 08/07/18 15:33) Vomiting trimethoprim [From Bactrim] Adverse Reaction (Verified 05/15/18 11:55) Vomiting Medications to take at Discharge Aspirin [Aspirin, Baby] 81 mg PO QHS 07/17/16 Gabapentin [Neurontin] 300 mg PO QHS 09/07/16 Sertraline HCl [Zoloft] 50 mg PO DAILY 09/07/16 Ondansetron [Zofran Odt] 4 mg PO Q8H PRN PRN #10 tablet 10/15/16 Lovastatin [Mevacor] 80 mg PO QHS 01/18/17 Acetaminophen [Tylenol Tablet] 650 mg PO Q6H PRN PRN tablet 08/07/17 Iron Polysaccharide Complex [Ferrex 150] 150 mg PO DAILYCM #30 capsule 08/25/17 Cholecalciferol (Vitamin D3) [Vitamin D3] 2,000 unit PO DAILY 11/09/17 Insulin NPH Human Isophane [Novolin N] 20 unit SQ QHS 11/09/17 Insulin NPH Human Isophane [Novolin N] 22 unit SQ DAILY 11/09/17 Insulin Regular, Human [Novolin R] 5 unit SC TID 11/09/17 Polyethylene Glycol 3350 [Miralax] 17 gm PO DAILY PRN 11/09/17 Ascorbic Acid [Vitamin C] 500 mg PO DAILY 05/14/18 Calcium Carbonate [Calcium] 500 mg PO DAILY 05/14/18 Oxycodone [Oxyir] 5 mg PO Q6H PRN PRN 7 Days #20 tablet 05/16/18 Lisinopril [Zestril] 20 mg PO DAILY 08/07/18 Metformin HCl [Glucophage] 500 mg PO BIDCM 08/07/18 Hydrocodone/Acetaminophen [Hydrocodon-Acetaminophen 5-325] 1 - 2 tab PO Q6H PRN PRN #15 tab 08/09/18 The following prescriptions were given: Hydrocodone/Acetaminophen [Hydrocodon-Acetaminophen 5-325] 1 - 2 tab PO Q6H PRN PRN #15 tab PRN Reason: Pain Primary Care Physician: Alexander Velez MD [Primary Care Provider] - Test Results: Test results from this visit will be discussed in further detail at your follow- up appointment, if applicable. Please Follow Up With: Kait West DPM When: [facility]; call [phone] sooner if questions Proposed Discharge Date: 08/09/18
[2018-08-09 11:11] LABS: Bedside Glucose 120 mg/dL (70-110)
== END 2018-08-09 11:35 | disposition home or self-care (01) ==
LOC: SDC 08:04 → AC 08:05
PROVIDERS: Family Provider Family Medicine; PCP Family Medicine; Referring Provider Podiatrist; Visit Provider Podiatrist
PROC: (CPT 20680; principal; 2018-08-09 09:15)
DX: T85.848A Pain due to other internal prosthetic devices, implants and grafts, initial encounter (principal); M14.672 Charcot's joint, left ankle and foot; M25.572 Pain in left ankle and joints of left foot; I12.9 Hypertensive chronic kidney disease with stage 1 through stage 4 chronic kidney disease, or unspecified chronic kidney disease; E11.22 Type 2 diabetes mellitus with diabetic chronic kidney disease; E11.42 Type 2 diabetes mellitus with diabetic polyneuropathy; E11.65 Type 2 diabetes mellitus with hyperglycemia; N18.3 Chronic kidney disease, stage 3 (moderate); I49.1 Atrial premature depolarization; E78.5 Hyperlipidemia, unspecified; D64.9 Anemia, unspecified; J45.909 Unspecified asthma, uncomplicated; E55.9 Vitamin D deficiency, unspecified; F32.9 Major depressive disorder, single episode, unspecified; E66.9 Obesity, unspecified; Z68.42 Body mass index [BMI] 45.0-49.9, adult; Z79.4 Long term (current) use of insulin; Z79.82 Long term (current) use of aspirin; Z79.899 Other long term (current) drug therapy; Z98.1 Arthrodesis status
CPT/HCPCS: 01480; 20680; 73610; 76000; 82962; J7120; J2405

== ENCOUNTER 2019-10-03 10:14 | Emergency (ER) | payer MEDICAID, SELFPAY ==
[2019-10-03 10:14] VITALS: BMI 43.4
[2019-10-03 10:16] VITALS: BP 154/85; PULSE 104; RESP 20; TEMP 36.8; BMI 44.3
--- NOTE | 2019-10-03 10:25 | ED.DCSUM_ITS ---
History of Present Illness Chief Complaint: Abscess Detail of Chief Complaint: Skin infection/abscess. Informant: Patient Onset: Days Context: Sudden Onset Timing: Continuous Quality: Abscess Location: Right and left axilla, anterior proximal left thigh Current Severity: Mild Worsened by: Nothing Relieved by: Nothing Associated Symptoms: No associated symptoms and blood sugar 136 this morning Narrative: Patient is a middle-aged woman who presents with abscess to the right axilla, left axilla and anterior proximal left thigh. She denies fever, chills night sweats. Denies rheumatic fever, heart murmur or being immune suppressed. She denies respiratory symptoms. She denies nausea or vomiting. She denies drainage from the area. She denies myalgias or arthralgias. She presents because she has history of prior abscess that she did not have treated immediately and required significant debridement and wound VAC. Prior similar symptoms: Yes Recent Illness/Hospitalization: No - Past Medical History (1) Avascular necrosis Status: Chronic (2) Charcot's joint of ankle Status: Chronic (3) Depression Status: Chronic (4) Morbid obesity Status: Chronic (5) Type 2 diabetes mellitus with diabetic polyneuropathy Status: Chronic Past Medical History - Allergies and Home Meds Allergies/Adverse Reactions: Allergies latex Adverse Reaction (Verified 10/03/19 10:18) Rash morphine Adverse Reaction (Verified 10/03/19 10:18) Vomiting sulfamethoxazole [From Bactrim] Adverse Reaction (Verified 10/03/19 10:18) Vomiting tramadol Adverse Reaction (Verified 10/03/19 10:18) Vomiting trimethoprim [From Bactrim] Adverse Reaction (Verified 10/03/19 10:18) Vomiting Primary Care Physician: Alexander Velez MD [Primary Care Provider] - Prior records reviewed: Yes Surgical History: hysterectomy - RAINA w/ BLSOO, - - Abdominal abscess I&D, +MRSA 07/24, Breast abscess R breast, Previous left ankle surgery following fracture, hardware, eventual fusion and most recent arthrodesis as noted. Lives: Alone Smoking Status: Never smoker Alcohol: None Drugs: None - Family History Maternal Family History: Reports: Heart Disease Paternal Family History: Reports: Diabetes Sibling Family History: Reports: Heart Disease, Stroke Review of Systems General: Denies: Chills, Fever, Malaise, Sweats Eyes: Denies: Visual changes - bilaterally, Blurred Vision - bilaterally Cardiovascular: Denies: Chest pain, Palpitations Respiratory: Denies: Dyspnea, Cough, Dyspnea on exertion Gastrointestinal: Denies: Abdominal pain, Nausea, Vomiting, Diarrhea, Melena, Hematochezia Skin: Reports: Rash, Abscess. Denies: Abrasions, Wounds Neurological: Reports: Parasthesia. Denies: Headache, Weakness, Numbness Endocrine: Denies: Polyuria, Polydipsia Hematologic: Denies: Easy bruising, Easy bleeding Physical Exam Vital Signs/Narrative: Vital Signs Temp Pulse Resp BP 10/03/19 10:16 98.2 F 104 H 20 H 154/85 H Inital Vital Signs reviewed: Yes General: Well nourished, Well developed, Obese, No Acute Distress Head: Normocephalic, Atraumatic Eyes: Perrl, EOMI. Negative for: Pale conjunctiva ENT: Moist mucous membranes, No rhinorrhea Neck: Supple, Nontender, No lymphadenopathy, No JVD Cardiovascular: Regular rhythm, No murmurs, Normal S1, Normal S2, Tachycardia Respiratory: No distress, CTA bilaterally, Chest nontender Abdomen: Soft, Nontender, Nondistended, Normal bowel sounds Rectal: Deferred Extremities: Nontender, No edema Skin: Normal color, No Trauma, - - Patient has a subcutaneous abscess right axilla. There is evidence of folliculitis and cellulitis with yeast infection left axilla. There is no lymphadenopathy either side. There is a nickel sized fluctuant area proximal anterior mid left thigh without cellulitis, lymphangitis or inguinal lymphadenopathy.. Negative for: No rash, Cyanosis, Diaphoresis, Jaundice, Pallor Neurological: Alert, Oriented x3, Cranial nerves II-XII grossly intact, Normal Strength, Normal Sensation. Negative for: Normal Gait Psychological: Normal affect Diagnostic/Tx/Re-eval - Medical Decision Making Patient was informed that the abscess in the right axilla and left thigh would need drained. She was treated with doxycycline for streptococcal and staphylococcal coverage. She also was treated with nystatin powder for monilial infection. Procedures Procedure(s): 1. I&D anterior proximal left thigh subcutaneous abscess. The area was prepped draped sterile manner. The area was anesthetized 1% lidocaine by local infiltration. Incision was made. There was 1 cc of purulent material noted. Additional purulent material was expressed from the wound. Blunt dissection was undertaken with minimal additional purulent material. Cavity was irrigated. There was still surrounding erythema consistent with cellulitis. 2. Incision and drainage right axillary subcutaneous abscess. Area was prepped draped sterile manner. There was no signs of Xylocaine by local infiltration and field block. Incision was made and there was approximately 15 to 20 cc of purulent material that flowed from the area. Additional perimeter was expressed and blunt dissection was undertaken with additional purulent material noted. Cavity was irrigated. Erythema resolved after I&D. ED Disposition - Plan for ED Patient: Disposition: Home or Assisted Living Diagnosis: Cellulitis and abscess of left lower extremity, Abscess of right axilla, Folliculitis of left axilla, Sana infection Instructions: ABSCESS, Incision and Drainage, Cellulitis, Folliculitis Prescriptions: Doxycycline 100 mg PO BID #14 cap Transmission Status: Pending to [facility] Nystatin Powder [Mycostatin Powder] 1 applic TOPICAL TID #1 bottle Transmission Status: Pending to [id number] Referrals: Alexander Velez MD [Primary Care Provider] - 2 Days for wound check
[2019-10-03] MEDS: Doxycycline 100 MG CAPSULE PO (10:30)
[2019-10-03] MEDS: Nystatin Powder 15gm Bottle 1 APPLIC TOPICAL (11:11)
[2019-10-03 12:44] VITALS: RESP 16
[2019-10-03 13:23] VITALS: BP 137/82; PULSE 66; RESP 15; O2SAT 98
== END 2019-10-03 13:24 | disposition home or self-care (01) ==
PROVIDERS: Emergency Provider Emergency Medicine; Family Provider Family Medicine; PCP Family Medicine
DX: L03.116 Cellulitis of left lower limb (principal); L02.416 Cutaneous abscess of left lower limb; L02.411 Cutaneous abscess of right axilla; B37.2 Candidiasis of skin and nail; L73.9 Follicular disorder, unspecified; E11.42 Type 2 diabetes mellitus with diabetic polyneuropathy; E11.610 Type 2 diabetes mellitus with diabetic neuropathic arthropathy; F32.9 Major depressive disorder, single episode, unspecified; E66.01 Morbid (severe) obesity due to excess calories; Z68.41 Body mass index [BMI] 40.0-44.9, adult; Z79.4 Long term (current) use of insulin; Z79.82 Long term (current) use of aspirin
CPT/HCPCS: 10060; 99283

== ENCOUNTER → 2024-01-08 | Outpatient (CLI) | payer MEDICARE, SELFPAY ==
--- NOTE | 2024-01-08 13:08 | ST.MBS ---
Modified Barium Swallow Patient Information Study Date: 01/08/24 Study Time: 13:00 Direct Billable Minutes: 86 Total Minutes procedure & reportin Diagnosis: Dysphagia R13.10 Referring Physician: Yoseph Puga Reason for Referral: Objectively assess swallow function, assess risk for aspiration, and determine recommendations for least restrictive diet textures and compensatory strategies to improve safety of swallow. Medical History: PMH: DM type II, Dysphagia, HTN, HLD, Asthma, GERD, AMANDA. See EMR for full PMH. The patient reports increased swallowing difficulty for the past 6 months. She reports coughing with food/drink 1-2X/week regardless of food texture. At times, she will cough up small amounts of food. She feels that her swallowing difficulty has gradually worsened. She was initially referred for GI consult with upper GI 10/2023 revealing no abnormalities with exception for evidence of GERD per patient report. Omeprazole dosage was increased following the study and she was referred to ENT. ENT found no abnormalities with endoscope per patient and referred her for MBSS. Current Diet Ordered: Regular textures / Thin liquids Dentition: Natural Teeth, Partials and Missing Teeth Mental Status: WNL Respiratory Status: Oxygenating on Room Air Penetration-Aspiration Scale Penetration-Aspiration Scale: OBJECTIVE ASSESSMENT OF SWALLOW FUNCTION (QUANTITATIVE ? PER TRIAL): PENETRATION / ASPIRATION SCALE (MOON): 1 = does not enter airway 2 = enters airway/above vocal folds/ejected 3 = enters airway/above vocal folds/not ejected 4 = enters airway/contacts vocal folds/ejected 5 = enters airway/contacts vocal folds/not ejected 6 = enters airway/below vocal folds/ejected 7 = enters airway/below vocal folds/not ejected despite effort 8 = enters airway/below vocal folds/no effort VIDEOFLOROSCOPIC SCALE SCORE (MOON): Grade I = aspiration of material that has penetrated into the laryngeal vestibule, intact cough reflex Grade II = aspiration < 10 % of the bolus, intact cough reflex Grade III = aspiration of < 10 % of the bolus, reduced cough reflex or aspiration of > 10 % of the bolus, intact cough reflex Grade IV = aspiration of > 10 % of the bolus, reduced cough reflex Penetration-Aspiration Scale Score Thin Liquid via teaspoon: Result: 2= enter airway/above vocal folds/ejected Thin Liquid via teaspoon Trial 2: Result: 1= does not enter airway Thin Liquid via small single sip: cup: Result: 1= does not enter airway Rhame Thick Liquid via small single sip: cup: Result: 1= does not enter airway Pudding via teaspoon: Result: 1= does not enter airway Whole cookie: Result: 1= does not enter airway Comment: CDROA Thin Liquid via sequential sips:straw: Result: 1= does not enter airway 1/4 Cookie: Result: 1= does not enter airway Oral Phase Labial Seal: No Labial Escape Tongue Control During Bolus Hold: Posterior escape of less than half of bolus Bolus Preparation/Mastication: Disorganized chewing/mashing with solid pieces of bolus unchewed (small piece of cookie appeared un-chewed on the superior edge of the epiglottis after the first swallow) Bolus Transport/Lingual Motion: Brisk tongue motion Oral Residue: Majority of bolus remaining (piecemeal deglutition of whole cookie trial) Pharyngeal Phase Initiation of Pharyngeal Swallow: Bolus head at posterior laryngeal surgace of epiglottis Soft Palate Elevation: Trace column of contrast/air between soft palate and pharyngeal wall Laryngeal Elevation: Comp. Superior move thyroid cart w/comp. apprx arytenoid cart-epig pet Anterior Hyoid Excursion: Partial anterior movement Epiglottic Movement: Partial inversion Laryngeal Vestibule Closure at Height of Swallow: Incomplete; narrow column of air/contrast in laryngeal vestibule Pharyngeal Stripping Wave: Present - diminished Pharyngoesophageal Segment Opening: Complete distension and complete duration; no obstruction of flow Tongue Base Retraction: Narrow column of contrast between tongue base & post. pharyngeal wall Pharyngeal Residue: Collection of residue within or on pharyngeal structures (small piece of unchewed cookie on the epiglottis after the first swallow of cookie) Esophageal Phase Esophageal Clearance: Esophageal retention Diagnosis/Impression Diagnosis: Mild oral dysphagia R13.11; Mild pharyngoesophageal dysphagia R13.14 Impression: Cannot definitively rule out aspiration for all the above recommended trials due to patient's body habitus. MERCHANDISE COORDINATOR had very limited view of laryngeal vestibule and trachea throughout the study, especially before and after each swallow. The oral phase is primarily marked by... -Decreased bolus control with >1/2 of the bolus spilling posteriorly to the posterior surface of the epiglottis prior to swallow onset. -Disorganized chewing/mashing with small piece of cookie un-chewed after the first swallow. -Majority oral residue on the tongue base after the swallow d/t piecemeal deglutition of whole cookie trial. The pharyngeal phase is primarily marked by... -Decreased airway closure during the swallow due to decreased anterior hyoid excursion, partial epiglottic inversion, and decreased laryngeal elevation. -Mildly decreased tongue base retraction, UES opening/duration, and pharyngeal stripping wave with resulting trace-mild pharyngeal residues after the swallow. -Laryngeal penetration with thin liquid by tsp which successfully ejected from the laryngeal vestibule after the swallow. No aspiration was observed during the study; however, aspiration cannot definitively be ruled out due to patient?s body habitus. Of note, patient was observed to have coughing during the swallow with cookie trial several times - MERCHANDISE COORDINATOR unable to view the laryngeal vestibule or even the pharynx during these coughing spells. Laryngeal vestibule appeared to be clear following these coughing spells. The esophageal phase is primarily marked by... -Esophageal retention throughout the esophagus that cleared with thin liquid wash. Recommendations Diet: Regular Textures (Easy to chew textures (moisten dry textures) - IDDSI level 7) and Thin Liquids Compensatory Strategies: Small Bites, Small Sips, Slow Rate, Alternate bites/solids and sips/liquids (1:1 ratio), Sitting upright and Remain sitting upright for 30 minutes after PO intake Recommend Repeat Modified Barium Swallow: No Need for Skilled Speech Therapy Services: Yes Comment: Will recommend FEES assessment to further assess the pharyngeal phase of the swallow due to limitations of imaging during MBSS. Recommended Referrals: GI Consult (Consider follow-up with GI due to retention of cookie throughout mid and lower esophagus.) Education Completed: 1. Described result of evaluation. and 2. Pt understands evaluation & agrees with goals and treatment plan. Status Active ST Patient: Active Contact Information [facility] Speech Therapy:: Lilliam Schroeder M.A. CCC-MERCHANDISE COORDINATOR? Speech-Language Pathologist?? [facility] [address]?? [place] [address]?? [email or web address]?? [phone]
== END | disposition home or self-care (01) ==
PROVIDERS: PCP Family Medicine; Referring Provider Otolaryngology; Visit Provider Otolaryngology
DX: R13.10 Dysphagia, unspecified (principal)
CPT/HCPCS: 74230; 92611

== ENCOUNTER 2024-02-12 09:24 | Outpatient (RCR) | payer MEDICARE, SELFPAY ==
--- NOTE | 2024-02-12 16:25 | ST ---
[facility] Speech Pathology [address] [place] [address] Modified Barium Swallow Study MR#: [id number] Acct: [id number] Name: SHALINI CASTELLANOS Rep #: [id number] : 1965 58 Modified Barium Swallow Patient Information Study Date: 01/08/24 Study Time: 13:00 Direct Billable Minutes: 86 Total Minutes procedure & reportin Diagnosis: Dysphagia R13.10 Referring Physician: Yoseph Puga Reason for Referral: Objectively assess swallow function, assess risk for aspiration, and determine recommendations for least restrictive diet textures and compensatory strategies to improve safety of swallow. Medical History: PMH: DM type II, Dysphagia, HTN, HLD, Asthma, GERD, AMANDA. See EMR for full PMH. The patient reports increased swallowing difficulty for the past 6 months. She reports coughing with food/drink 1-2X/week regardless of food texture. At times, she will cough up small amounts of food. She feels that her swallowing difficulty has gradually worsened. She was initially referred for GI consult with upper GI 10/2023 revealing no abnormalities with exception for evidence of GERD per patient report. Omeprazole dosage was increased following the study and she was referred to ENT. ENT found no abnormalities with endoscope per patient and referred her for MBSS. Current Diet Ordered: Regular textures / Thin liquids Dentition: Natural Teeth, Partials and Missing Teeth Mental Status: WNL Respiratory Status: Oxygenating on Room Air Penetration-Aspiration Scale Penetration-Aspiration Scale: OBJECTIVE ASSESSMENT OF SWALLOW FUNCTION (QUANTITATIVE ? PER TRIAL): PENETRATION / ASPIRATION SCALE (MOON): 1 = does not enter airway 2 = enters airway/above vocal folds/ejected 3 = enters airway/above vocal folds/not ejected 4 = enters airway/contacts vocal folds/ejected 5 = enters airway/contacts vocal folds/not ejected 6 = enters airway/below vocal folds/ejected 7 = enters airway/below vocal folds/not ejected despite effort 8 = enters airway/below vocal folds/no effort VIDEOFLOROSCOPIC SCALE SCORE (MOON): Grade I = aspiration of material that has penetrated into the laryngeal vestibule, intact cough reflex Grade II = aspiration < 10 % of the bolus, intact cough reflex Grade III = aspiration of < 10 % of the bolus, reduced cough reflex or aspiration of > 10 % of the bolus, intact cough reflex Grade IV = aspiration of > 10 % of the bolus, reduced cough reflex Penetration-Aspiration Scale Score Thin Liquid via teaspoon: Result: 2= enter airway/above vocal folds/ejected Thin Liquid via teaspoon Trial 2: Result: 1= does not enter airway Thin Liquid via small single sip: cup: Result: 1= does not enter airway [place] Thick Liquid via small single sip: cup: Result: 1= does not enter airway Pudding via teaspoon: Result: 1= does not enter airway Whole cookie: Result: 1= does not enter airway Comment: CDROA Thin Liquid via sequential sips:straw: Result: 1= does not enter airway 1/4 Cookie: Result: 1= does not enter airway Oral Phase Labial Seal: No Labial Escape Tongue Control During Bolus Hold: Posterior escape of less than half of bolus Bolus Preparation/Mastication: Disorganized chewing/mashing with solid pieces of bolus unchewed (small piece of cookie appeared un-chewed on the superior edge of the epiglottis after the first swallow) Bolus Transport/Lingual Motion: Brisk tongue motion Oral Residue: Majority of bolus remaining (piecemeal deglutition of whole cookie trial) Pharyngeal Phase Initiation of Pharyngeal Swallow: Bolus head at posterior laryngeal surgace of epiglottis Soft Palate Elevation: Trace column of contrast/air between soft palate and pharyngeal wall Laryngeal Elevation: Comp. Superior move thyroid cart w/comp. apprx arytenoid cart-epig pet Anterior Hyoid Excursion: Partial anterior movement Epiglottic Movement: Partial inversion Laryngeal Vestibule Closure at Height of Swallow: Incomplete; narrow column of air/contrast in laryngeal vestibule Pharyngeal Stripping Wave: Present - diminished Pharyngoesophageal Segment Opening: Complete distension and complete duration; no obstruction of flow Tongue Base Retraction: Narrow column of contrast between tongue base & post. pharyngeal wall Pharyngeal Residue: Collection of residue within or on pharyngeal structures (small piece of unchewed cookie on the epiglottis after the first swallow of cookie) Esophageal Phase Esophageal Clearance: Esophageal retention Diagnosis/Impression Diagnosis: Mild oral dysphagia R13.11; Mild pharyngoesophageal dysphagia R13.14 Impression: Cannot definitively rule out aspiration for all the above recommended trials due to patient's body habitus. CORNICE MAKER had very limited view of laryngeal vestibule and trachea throughout the study, especially before and after each swallow. The oral phase is primarily marked by... -Decreased bolus control with >1/2 of the bolus spilling posteriorly to the posterior surface of the epiglottis prior to swallow onset. -Disorganized chewing/mashing with small piece of cookie un-chewed after the first swallow. -Majority oral residue on the tongue base after the swallow d/t piecemeal deglutition of whole cookie trial. The pharyngeal phase is primarily marked by... -Decreased airway closure during the swallow due to decreased anterior hyoid excursion, partial epiglottic inversion, and decreased laryngeal elevation. -Mildly decreased tongue base retraction, UES opening/duration, and pharyngeal stripping wave with resulting trace-mild pharyngeal residues after the swallow. -Laryngeal penetration with thin liquid by tsp which successfully ejected from the laryngeal vestibule after the swallow. No aspiration was observed during the study; however, aspiration cannot definitively be ruled out due to patient?s body habitus. Of note, patient was observed to have coughing during the swallow with cookie trial several times - CORNICE MAKER unable to view the laryngeal vestibule or even the pharynx during these coughing spells. Laryngeal vestibule appeared to be clear following these coughing spells. The esophageal phase is primarily marked by... -Esophageal retention throughout the esophagus that cleared with thin liquid wash. Recommendations Diet: Regular Textures (Easy to chew textures (moisten dry textures) - IDDSI level 7) and Thin Liquids Compensatory Strategies: Small Bites, Small Sips, Slow Rate, Alternate bites/solids and sips/liquids (1:1 ratio), Sitting upright and Remain sitting upright for 30 minutes after PO intake Recommend Repeat Modified Barium Swallow: No Need for Skilled Speech Therapy Services: Yes Comment: Will recommend FEES assessment to further assess the pharyngeal phase of the swallow due to limitations of imaging during MBSS. Recommended Referrals: GI Consult (Consider follow-up with GI due to retention of cookie throughout mid and lower esophagus.) Education Completed: 1. Described result of evaluation. and 2. Pt understands evaluation & agrees with goals and treatment plan. Status Active ST Patient: Active Contact Information [facility] Speech Therapy Lilliam Schroeder M.A. CCC-CORNICE MAKER? Speech-Language Pathologist?? [facility] [address] [place] [address]?? [email or web address]?? [phone]
--- NOTE | 2024-02-12 16:48 | HP.SP.EV_ITS ---
Visit History Visit Info Date of Eval: 02/12/24 Visit: 1 Apartment Leasing Specialist: STEFFANY Aaron Attending Doctor: Referring Doctor: Reason for Referral: DYSPHAGIA RX HERE Medical Diagnosis: Dysphagia Previous speech therapy: Yes Results: MBSS -- SEE PASTED INTO CHART BELOW Other Relevant Medical History/Diagnoses/Surgery: SHALINI CASTELLANOS is a 58 year old female who presents to [facility] per recommendations from hospital speech therapist for further outpatient therapy. Her medical hx is marked by DM type II, Dysphagia, HTN, HLD, Asthma, GERD, AMANDA, kidney disease. See EMR for full PMH. Shalini arriving to her evaluation with her sister. Pt presenting with a hoarse voice with pitch breaks. Pt endorsing at time she has no voice at all. This has been happening for 1.5 years. Pt may have a history of intubation - cannot recall - she did have a multiple-hour surgery on her foot 5 years ago. Pt likes lemon water or hot tea, enjoys ice cold drinks - says these go easier for her. States that she has the most difficulty with foods compared to drinks. She is on a Nebulizer when it is difficult to breathe (Albuterol). She states she is coughing up green mucous phlegm - does endorse having allergies. Does endorse using a CPAP. Chokes during meals. Dr. Puga told her to take a small drink, masticate, swallow, and then take another drink -- she states this seems to help intermittently. Shalini stating texture of food doesn't seem to matter. Smoking Status: Smoker, status unknown Pain Is pain an issue with your current prescribed condition?: No Personal Preferred language: Uzbek Patient Allergies Allergies Allergies: Allergies latex Adverse Reaction (Verified 10/03/19 10:18) Rash morphine Adverse Reaction (Verified 10/03/19 10:18) Vomiting sulfamethoxazole [From Bactrim] Adverse Reaction (Verified 10/03/19 10:18) Vomiting tramadol Adverse Reaction (Verified 10/03/19 10:18) Vomiting trimethoprim [From Bactrim] Adverse Reaction (Verified 10/03/19 10:18) Vomiting Subjective Dysphagia Symptoms Reported Symptoms/Problems with: Difficulty Swallowing Solids Current Diet Solids Current Diet: Regular Current Diet Liquids Current Liquids: Thin Comments Patient Report: -: During evaluation, Pt reporting that she has the most difficulty with solid foods. She states that she coughs at least once a day on foods. She reports that was recently started on Omeprazole d/t GERD. Shalini stating that she can feel the reflux up into her throat and at times into her nose. Education provided on GERD and LPR and how this could be a possibility for the symptoms vashti albarado is experiencing. Stated during the FEES, the ST's performing the procedure would make notes of any evidence of reflux. Education: -: Education provided to Shalini re: her MBSS results. Education also provided re: anatomy physiology of swallow function. Education also provided re: participation in a FEES procedure to further assess swallow function. Shalini stating she was grateful for the cont'd education and that she was willing to participate in FEES. Modified Barium Results Hx If Applicable Enter into a NOTE MBS Results (from prior exam): 02/12/24 16:25 Speech Therapy by Riddhi Thomson [facility] Speech Pathology [address] [place] [address] Modified Barium Swallow Study MR#: [id number] Acct: [id number] Name: SHALINI CASTELLANOS Rep #: [id number] : 1965 58 Modified Barium Swallow Patient Information Study Date: 01/08/24 Study Time: 13:00 Direct Billable Minutes: 86 Total Minutes procedure & reportin Diagnosis: Dysphagia R13.10 Referring Physician: Yoseph Puga Reason for Referral: Objectively assess swallow function, assess risk for aspiration, and determine recommendations for least restrictive diet textures and compensatory strategies to improve safety of swallow. Medical History: PMH: DM type II, Dysphagia, HTN, HLD, Asthma, GERD, AMANDA. See EMR for full PMH. The patient reports increased swallowing difficulty for the past 6 months. She reports coughing with food/drink 1-2X/week regardless of food texture. At times, she will cough up small amounts of food. She feels that her swallowing difficulty has gradually worsened. She was initially referred for GI consult with upper GI 10/2023 revealing no abnormalities with exception for evidence of GERD per patient report. Omeprazole dosage was increased following the study and she was referred to ENT. ENT found no abnormalities with endoscope per patient and referred her for MBSS. Current Diet Ordered: Regular textures / Thin liquids Dentition: Natural Teeth, Partials and Missing Teeth Mental Status: WNL Respiratory Status: Oxygenating on Room Air Penetration-Aspiration Scale Penetration-Aspiration Scale: OBJECTIVE ASSESSMENT OF SWALLOW FUNCTION (QUANTITATIVE ? PER TRIAL): PENETRATION / ASPIRATION SCALE (MOON): 1 = does not enter airway 2 = enters airway/above vocal folds/ejected 3 = enters airway/above vocal folds/not ejected 4 = enters airway/contacts vocal folds/ejected 5 = enters airway/contacts vocal folds/not ejected 6 = enters airway/below vocal folds/ejected 7 = enters airway/below vocal folds/not ejected despite effort 8 = enters airway/below vocal folds/no effort VIDEOFLOROSCOPIC SCALE SCORE (MOON): Grade I = aspiration of material that has penetrated into the laryngeal vestibule, intact cough reflex Grade II = aspiration < 10 % of the bolus, intact cough reflex Grade III = aspiration of < 10 % of the bolus, reduced cough reflex or aspiration of > 10 % of the bolus, intact cough reflex Grade IV = aspiration of > 10 % of the bolus, reduced cough reflex Penetration-Aspiration Scale Score Thin Liquid via teaspoon: Result: 2= enter airway/above vocal folds/ejected Thin Liquid via teaspoon Trial 2: Result: 1= does not enter airway Thin Liquid via small single sip: cup: Result: 1= does not enter airway [place] Thick Liquid via small single sip: cup: Result: 1= does not enter airway Pudding via teaspoon: Result: 1= does not enter airway Whole cookie: Result: 1= does not enter airway Comment: CDROA Thin Liquid via sequential sips:straw: Result: 1= does not enter airway 1/4 Cookie: Result: 1= does not enter airway Oral Phase Labial Seal: No Labial Escape Tongue Control During Bolus Hold: Posterior escape of less than half of bolus Bolus Preparation/Mastication: Disorganized chewing/mashing with solid pieces of bolus unchewed (small piece of cookie appeared un-chewed on the superior edge of the epiglottis after the first swallow) Bolus Transport/Lingual Motion: Brisk tongue motion Oral Residue: Majority of bolus remaining (piecemeal deglutition of whole cookie trial) Pharyngeal Phase Initiation of Pharyngeal Swallow: Bolus head at posterior laryngeal surgace of epiglottis Soft Palate Elevation: Trace column of contrast/air between soft palate and pharyngeal wall Laryngeal Elevation: Comp. Superior move thyroid cart w/comp. apprx arytenoid cart-epig pet Anterior Hyoid Excursion: Partial anterior movement Epiglottic Movement: Partial inversion Laryngeal Vestibule Closure at Height of Swallow: Incomplete; narrow column of air/contrast in laryngeal vestibule Pharyngeal Stripping Wave: Present - diminished Pharyngoesophageal Segment Opening: Complete distension and complete duration; no obstruction of flow Tongue Base Retraction: Narrow column of contrast between tongue base & post. pharyngeal wall Pharyngeal Residue: Collection of residue within or on pharyngeal structures (small piece of unchewed cookie on the epiglottis after the first swallow of cookie) Esophageal Phase Esophageal Clearance: Esophageal retention Diagnosis/Impression Diagnosis: Mild oral dysphagia R13.11; Mild pharyngoesophageal dysphagia R13.14 Impression: Cannot definitively rule out aspiration for all the above recommended trials due to patient's body habitus. FIGHTING VEHICLE INFANTRYMAN had very limited view of laryngeal vestibule and trachea throughout the study, especially before and after each swallow. The oral phase is primarily marked by... -Decreased bolus control with >1/2 of the bolus spilling posteriorly to the posterior surface of the epiglottis prior to swallow onset. -Disorganized chewing/mashing with small piece of cookie un-chewed after the first swallow. -Majority oral residue on the tongue base after the swallow d/t piecemeal deglutition of whole cookie trial. The pharyngeal phase is primarily marked by... -Decreased airway closure during the swallow due to decreased anterior hyoid excursion, partial epiglottic inversion, and decreased laryngeal elevation. -Mildly decreased tongue base retraction, UES opening/duration, and pharyngeal stripping wave with resulting trace-mild pharyngeal residues after the swallow. -Laryngeal penetration with thin liquid by tsp which successfully ejected from the laryngeal vestibule after the swallow. No aspiration was observed during the study; however, aspiration cannot definitively be ruled out due to patient?s body habitus. Of note, patient was observed to have coughing during the swallow with cookie trial several times - FIGHTING VEHICLE INFANTRYMAN unable to view the laryngeal vestibule or even the pharynx during these coughing spells. Laryngeal vestibule appeared to be clear following these coughing spells. The esophageal phase is primarily marked by... -Esophageal retention throughout the esophagus that cleared with thin liquid wash. Recommendations Diet: Regular Textures (Easy to chew textures (moisten dry textures) - IDDSI level 7) and Thin Liquids Compensatory Strategies: Small Bites, Small Sips, Slow Rate, Alternate bites/solids and sips/liquids (1:1 ratio), Sitting upright and Remain sitting upright for 30 minutes after PO intake Recommend Repeat Modified Barium Swallow: No Need for Skilled Speech Therapy Services: Yes Comment: Will recommend FEES assessment to further assess the pharyngeal phase of the swallow due to limitations of imaging during MBSS. Recommended Referrals: GI Consult (Consider follow-up with GI due to retention of cookie throughout mid and lower esophagus.) Education Completed: 1. Described result of evaluation. and 2. Pt understands evaluation & agrees with goals and treatment plan. Status Active ST Patient: Active Contact Information [facility] Speech Therapy Lilliam Schroeder M.A. [facility]-FIGHTING VEH[employer]LE INFANTRYMAN? Speech-Language Pathologist?? [facility] [address]?? [place] [address]?? [email or web address] ([email or web address])?? [phone] Initialized on 02/12/24 16:25 - END OF NOTE Swallowing Performance Scale Swallowing Performance Scale Swallowing Performance Scale Result: 3 Mild Reference: Neuro-QoL instrument Radiation Oncology Patient Plan Plan Plan: Will rx Pt for skilled outpatient tx to address deficits in oropharyngeal dysphagia. Pt would benefit from training and education re: diet tolerance checks, implementation of safe swallowing strategies, and swallowing exercises to aid in oropharyngeal strengthening. Without skilled intervention, Pt is at risk for consuming a restrictive diet putting her at risk for aspiration pneumonia and atrophy of laryngeal musculature. Recommendations Treatment Warranted: Yes Treatment Warranted: Dysphagia Progress Prognosis: Good Frequency Frequency: 2x /Week Duration: 2 Months Visits in this POC: 16 Goals that are Established Determination:: Goals will be added/modified as deemed necessary and appropriate. Therapy will be discontinued when results of re-evaluation indicate therapy is no longer needed or lack of progress has been documented. Goal #1-5 Goal #1: Shalini will participate in Fiberoptic Endoscopic Evaluation of Swallow (FEES) to objectively assess Pt's oropharyngeal swallow function to determine the least restrictive means of nutrition and accurately recommend a home exercise program along with compensatory strategies. Goal #2: Shalini will complete oropharyngeal strengthening exercises in adherence to MBSS and FEES recommendations strengthen her oropharyngeal musculature. Education Patient Instruction Patient Education: Diagnosis and Treatment Plan Person Taught: Patient Teaching Method: Discussion and Demonstration Response to teaching: Return demonstration and Verbalize understanding
--- NOTE | 2024-02-14 16:53 | HP.SPFEES ---
FEES Patient Information Date of Evaluation: 02/12/24 Time of Evaluation: 10:10 DIAGNOSIS:: Dysphagia Referring Physician: Yoseph Puga Staff Providing this Care/Treatment:: DANNA Direct Billable Minutes: 120 Subjective: Subjective:: DM type II, Dysphagia, HTN, HLD, Asthma, GERD, AMANDA. See EMR for full PMH. The patient reports increased swallowing difficulty for the past 6 months. She reports coughing with food/drink 1x daily regardless of food texture. She feels that her swallowing difficulty has gradually worsened. She was initially referred for GI consult with upper GI 10/2023 revealing no abnormalities with exception for evidence of GERD per patient report. Omeprazole dosage was increased following the study and she was referred to ENT. ENT found no abnormalities with endoscope per patient and referred her for MBSS. Recommendations from MBS on 01/08/24 Diet: Regular Textures (Easy to chew textures (moisten dry textures) - IDDSI level 7) and Thin Liquids Compensatory Strategies: Small Bites, Small Sips, Slow Rate, Alternate bites/solids and sips/liquids (1:1 ratio), Sitting upright and Remain sitting upright for 30 minutes after PO intake Current Diet: Drinks/Liquids:: Thin Foods:: Regular Medication Administration:: orally Respiratory Status: Observation:: While sitting in a chair she did not appear short of breath but moving approximately 8-10 feet to wheelchair she verbally stated that she was short of breath. Dentation/Oral Hygiene: Observations:: Natural Teeth, Partials and Missing Teeth. She did not have her bottom plate in place for today's evaluation. Vocal Quality: Observations:: Breathy Cognition: Observations:: WNL Dysphagia: TX/DX History:: Yes and MBSS Fiberoptic Endoscope: Size: 3.4 mm Nare:: Right Position During FEES: Position During FEES:: Upright Location: In Chair Anatomy: + Velopharyngeal Port Observations Movement: Yes +Nasopharynx Observations Tissue Description: [place] and Moist Location: Diffuse +Oropharynx Observations: Tissue Description: [place] and Moist Location: Diffuse +Hypopharynx Observation: Tissue Description: [place] and Moist Location: Diffuse Comments:: Noted cobblestone appearance as well as edema noted for the arytenoids bilaterally. Secretions: Description:: Thin Comment:: Large amount of secretions throughout the entire FEES procedure. Location:: Nasopharynx, Oropharynx, Hypopharynx and Diffuse Phonation: Arytenoid Adduction & Abduction: Left side moved past mid line to create closure. Vocal Folds:: Asymmetrical Penetration-Aspiration Scale Penetration-Aspiration Scale Swallowing: :: Liquids triggered a swallow at the level of pyriform sinuses with no aspiration or penetration noted on thin liquids with straw sip or sequential swallows of 50 ml of thin via straw. Pureed, mechanical soft and regular consistency had premature spillage to the level of the vallecula and on one bite it was to the level of the lateral glosso-epilottic fold on the left side. Majority of residue and premature spillage was noted to be the left side of vallecula. She has mild residue for all solids that cleared with a second swallow. She only used a natural double swallow on 50% of the swallows with residue. A liquid wash helped clear residue on the other 50%. She had greater premature spillage with bigger bites. Only one time did she have a very tiny of premature spillage on the post cricoid region that cleared with the swallow. Overall poor white out of the swallow noted which is indicative of poor pharyngeal contraction resulting in residues. Initiation:: Vallecula and Piriform Sinus Swallowing Trials: Swallowing Trials Results Below: Thin Liquid: Trial 1: Water Administered:: via a straw Aspiration: No - aspiration Residue: No PAS Score: PAS Score *1 Trial 2: Water with sequential drinks of 50 ml Administered:: via a straw Aspiration: No - aspiration Residue: No PAS Score: PAS Score *1 Puree Texture: Trial 1: Applesauce Administered:: via a teaspoon Aspiration: No - aspiration Residue: Yes Residue Location: Residue Location Vallecula Soft & Bite Texture: Trial 1: mandarin orange Administered:: via a teaspoon Aspiration: No - aspiration Residue Lacation: Residue Location Vallecula PAS Score: PAS Score *1 Trial 2: Mixed consistency of mandarin orange and liquid from fruit cup Administered:: via a teaspoon Aspiration: No - aspiration Residue Lacation: Residue Location Vallecula PAS Score: PAS Score *1 Regular Texture: Trial 1: Fig navas ( larger piece that was not presented as bite sized) Aspiration: No - aspiration Residue: Yes Residue Location: Residue Location Vallecula PAS Score: PAS Score *1 Trial 2: Single bite cheeto Aspiration: No - aspiration Residue: Yes PAS Score: PAS Score *1 Trial 3: Large bite cheeto Aspiration: No - aspiration Residue: Yes Residue Location: Residue Location Vallecula PAS Score: PAS Score *1 Recommendations: Recommended Diet Grade & Liquid Drinks/Liquids:: Thin Foods:: Regular Medication Administration:: orally Supervision/Cues: Family Recommended Compensatory Strategies: Small bites/sips, Small Bites, Small Sips, Slow Rate, Double swallow on solids, Alternate bites/solids and sips/liquids (1:1 ratio), Sitting upright and Remain sitting upright for 30 minutes after PO intake. Prognosis: Prognosis: Good Frequency: Frequency: 2x /Week Duration: 2 Months Visits in this POC: 16 Education: Education Completed: 1. Described result of evaluation. and 2. Pt understands evaluation & agrees with goals and treatment plan. Goals that are Established Determination:: Goals will be added/modified as deemed necessary and appropriate. Therapy will be discontinued when results of re-evaluation indicate therapy is no longer needed or lack of progress has been documented. Goal #1: Eleni will participate in Fiberoptic Endoscopic Evaluation of Swallow (FEES) to objectively assess Pt's oropharyngeal swallow function to determine the least restrictive means of nutrition and accurately recommend a home exercise program along with compensatory strategies. Goal #2: Eleni will complete oropharyngeal strengthening exercises in adherence to MBSS and FEES recommendations strengthen her oropharyngeal musculature. Goal #3: Patient will demonstrate and utilize recommended oropharyngeal strengthening exercises ( ie- Effortful swallow, [place], etc) to facilitate improved velopharyngeal and oropharyngeal strength and coordination with minimal cueing and prompting provide by the clinician, across 3 to 3 sessions.
--- NOTE | 2024-06-03 15:32 | HP.SP.DC ---
ST Discharge Summary Discharged: Discharge: Eleni Dahl is discharged from speech therapy at [facility] as of June 03, 2024. She was evaluated on 02/12/24 for dysphagia. A FEES was completed on 02/14/24 with the following recommendations: rinks/Liquids:: Thin Foods:: Regular Medication Administration:: orally Supervision/Cues: Family Recommended Compensatory Strategies: Small bites/sips, Small Bites, Small Sips, Slow Rate, Double swallow on solids, Alternate bites/solids and sips/liquids (1:1 ratio), Sitting upright and Remain sitting upright for 30 minutes after PO intake. Therapy was recommended twice weekly to address deficits in swallowing. No further visits were scheduled by the patient after insurance approval was given. Please see reports for complete details of evaluation and FEES. Thank you for allowing me to participate in the care of your patient.
== END 2024-02-12 19:00 | disposition home or self-care (01) ==
LOC: SP 09:24
PROVIDERS: PCP Family Medicine; Referring Provider Otolaryngology; Visit Provider Otolaryngology
DX: R13.10 Dysphagia, unspecified (principal)
CPT/HCPCS: 92610; 92612

== ENCOUNTER 2024-03-27 09:36 | Emergency (ER) | payer MEDICARE, SELFPAY ==
[2024-03-27 09:37] VITALS: BP 175/75; PULSE 86; RESP 18; TEMP 36.4; O2SAT 97
[2024-03-27 09:54] VITALS: BP 175/75; PULSE 86; RESP 18; TEMP 36.4; O2SAT 97
--- NOTE | 2024-03-27 10:01 | ED.VIS.LOWEX ---
HPI History of Present Illness Chief Complaint: Wound Informant: patient Narrative Narrative: 58-year-old diabetic female presenting to the emergency room with a chief complaint of sores on leg. Patient has had sores on her bilateral legs for weeks and months. She states that it started off very small and then progressively larger. She tells me that her director of spa and guest experience told her that it was due to the lymphedema in her legs. She states that about a week and a half ago she saw primary care who prescribed her mupirocin ointment. She states that she woke today and the right leg seems redder than it has been. 2016 she had MRSA infection requiring wound VAC. She has also had resistant staphylococcal epidermidis infection. Primary care referred her to dermatology and she has appointment in April with them. No reported fevers. [facility] Medical History (Updated 03/27/24 @ 10:[address] Rashi Bright, DO) Morbid obesity HLD (hyperlipidemia) HTN (hypertension) Osteomyelitis Avascular necrosis of bone Charcot ankle Type 2 diabetes mellitus with diabetic polyneuropathy Home Medications ?Medication ?Instructions ?Recorded ?Last Taken ?Type aspirin 81 mg chewable tablet 81 mg PO QHS heart health 07/17/16 07/11/17 History gabapentin 300 mg capsule 300 mg PO QHS neuropathy 09/07/16 07/10/17 History sertraline 50 mg tablet 50 mg PO DAILY depression 09/07/16 07/11/17 History ondansetron 4 mg disintegrating 4 mg PO Q8H PRN PRN Nausea #10 tabs 10/15/16 07/11/17 Rx tablet Lovastatin [Mevacor] 80 mg PO QHS cholesterol 01/18/17 07/11/17 History acetaminophen 325 mg tablet 650 mg (2 x 325 mg) PO Q6H PRN PRN 08/07/17 Unknown Rx (Tylenol) Mild Pain (scale 0-3)/T>100.7 cholecalciferol (vitamin D3) 50 2,000 unit PO DAILY supplement 11/09/17 Unknown History mcg (2,000 unit) capsule (Vitamin D3) insulin NPH isoph U-100 human 100 20 unit SQ QHS blood sugar 11/09/17 Unknown History unit/mL subcutaneous suspension (Novolin N NPH U-100 Insulin isophane) insulin NPH isoph U-100 human 100 22 unit SQ DAILY blood sugar 11/09/17 Unknown History unit/mL subcutaneous suspension (Novolin N NPH U-100 Insulin isophane) insulin regular human 100 unit/mL 5 unit subcut TID DIABETES 11/09/17 Unknown History injection solution (Novolin R Regular U-100 Insulin) polyethylene glycol 3350 17 gram 17 g PO DAILY PRN Constipation 11/09/17 Unknown History oral powder packet ascorbic acid (vitamin C) 500 mg 500 mg PO DAILY SUPPLEMENT 05/14/18 Unknown History tablet (Vitamin C) calcium carbonate 500 mg PO DAILY SUPPLEMENT 05/14/18 Unknown History benazepril 20 mg tablet 20 mg PO DAILY 10/03/19 Unknown History doxycycline monohydrate 100 mg 100 mg PO BID #14 caps 10/03/19 Unknown Rx capsule ferrous sulfate 325 mg (65 mg 325 mg PO DAILY 10/03/19 Unknown History iron) tablet nystatin 100,000 unit/gram topical 1 applic topical TID ##1 10/03/19 Unknown Rx powder cephalexin 500 mg capsule 500 mg PO Q6 #28 CAPSULES 03/27/24 Unknown Rx doxycycline hyclate 100 mg capsule 100 mg PO BID 7 days #14 caps 03/27/24 Unknown Rx Allergy/AdvReac Type Severity Reaction Status Date / Time latex AdvReac Rash Verified 03/27/24 09:37 morphine AdvReac Vomiting Verified 03/27/24 09:37 sulfamethoxazole (From AdvReac Vomiting Verified 03/27/24 09:37 Bactrim) tramadol AdvReac Vomiting Verified 03/27/24 09:37 trimethoprim (From Bactrim) AdvReac Vomiting Verified 03/27/24 09:37 Surgical History (Updated 03/27/24 @ 10:[address] Rashi Bright DO) S/P ankle fusion Social History Smoking Status: Smoker, status unknown ROS ROS ED Constitutional Constitutional ED: Denies chills, fever(s) or weight loss Eyes Eyes: Denies change in vision or diplopia ENT ENT ED: Denies ear pain, rhinorrhea or sore throat Cardiovascular Cardiovascular: Denies chest pain, orthopnea, palpitations or racing heartbeat Respiratory/Chest Respiratory/Chest: Denies cough, dyspnea or orthopnea Gastrointestinal Gastrointestinal: Denies abdominal pain, diarrhea, nausea or vomiting Genitourinary Genitourinary ED: Denies dysuria, hematuria or urinary frequency Musculoskeletal Musculoskeletal: Denies arthralgias or myalgias Integumentary Reports rash; Denies abscess Neurologic Neurologic: Denies headache(s) or weakness Psychiatric Psychiatric: Denies anxiety, depression, suicidal ideation or suicidal thoughts Endocrine Endocrinology: Denies polydipsia, polyphagia or polyuria Allergic/Immunologic Allergic/Immunologic ED: Denies mouth swelling, tongue swelling or urticaria EXAM Physical Exam Const Vital Signs: 03/27/24 09:37 03/27/24 09:54 Temperature 97.6 F L 97.6 F L Temperature Source Temporal Temporal Pulse Rate 86 86 Respiratory Rate 18 18 Blood Pressure 175/75 H 175/75 H Blood Pressure Mean 108 108 Pulse Ox 97 97 Oxygen Delivery Method Room Air Room Air Positive well nourished, well developed and obese General Appearance ED: well developed and NAD Nutritional Appearance: obese HEENT Reports normocephalic, head/scalp atraumatic and moist mucous membranes Eyes PERRL and EOMs intact bilaterally Neck no lymphadenopathy, supple and no JVD Resp normal respiratory effort and clear to auscultation bilaterally Cardio regular rate, regular rhythm and no murmurs GI normal to inspection, nondistended, normoactive bowel sounds and non-tender Palpation: soft Back/Spine no CVA tenderness and normal ROM Extremity Extremity Narrative: There is mild lower extremity edema. There are multiple sores below the level of the knee bilaterally feet. Some of these are pinpoint some of these are about dime sized. They are in various states of healing. They do not appear to remedios. Some are flat some are maculopapular. I do not appreciate that any of these are abscessed. Anterior mid right fink demonstrates some erythema and increased warmth. This area is about 8 cm in diameter. But observed feet appear with dirt. I do not appreciate lymphangitic streaking. A few of the larger lesions appear to have been excoriated or at least have granulation tissue/scabs on them. General Extremety ED: Negative for edema General Extremity: Negative for edema Neuro oriented x3 and CN's II-XII intact bilaterally Sensorium / Orientation: alert Motor Exam: strength 5/5 throughout Psych mental status grossly normal Mood & Affect: Negative for depressed or tearful Skin no rashes or lesions noted and no wounds MDM MDM MDM Narrative Medical decision making narrative: Differential diagnosis includes cellulitis cutaneous abscess drug-resistant abscess is vasculitis. Neurologic Clinically I think the patient looks well. She has no focal area of erythema which I think is most likely related to his cellulitis. She does have a history of MRSA. I will write for Keflex and Bactrim. Have her follow-up with primary care in a week. Patient to return if worsening or concerns History & Record Review Discussion w/independent historian: Patient Additional record(s) reviewed:: Prior ED visit and Prior labs Discharge Plan Triage Chief Complaint: Wound ED Provider: Rashi Bright Dx/Rx/DC Orders Clinical Impression: Cellulitis and abscess of leg, Type 2 diabetes mellitus with diabetic polyneuropathy, Hypertension Instructions: Cellulitis Dc Prescriptions: New cephalexin 500 mg capsule 500 mg PO Q6 Qty: 28 0RF doxycycline hyclate 100 mg capsule 100 mg PO BID 7 Days Qty: 14 0RF No Action aspirin 81 MG tablet,chewable 81 mg PO QHS Patient Comments: BLOOD THINNER/heart health WAS NOT TOLD TO STOP FOR SURGERY gabapentin 300 MG capsule 300 mg PO QHS Patient Comments: restless legs/neuropathy sertraline 50 MG tablet 50 mg PO DAILY Patient Comments: depression ondansetron 4 MG tablet 4 mg PO Q8H PRN PRN (Reason: Nausea) Qty: 10 0RF Patient Comments: nausea Lovastatin [Mevacor] 40 MG tablet 80 mg PO QHS Patient Comments: cholesterol acetaminophen [Tylenol] 325 MG tablet 650 mg PO Q6H PRN PRN (Reason: Mild Pain (scale 0-3)/T>100.7) 0RF Patient Comments: pain cholecalciferol (vitamin D3) [Vitamin D3] 2,000 UNIT capsule 2,000 unit PO DAILY polyethylene glycol 3350 17 GM powder in packet 17 g PO DAILY PRN (Reason: Constipation) insulin regular human [Novolin R Regular U100 Insulin] 100 UNIT/ML solution 5 unit subcut TID Patient Comments: AFTER BREAKFAST insulin NPH isoph U-100 human [Novolin N NPH U-100 Insulin] 100 UNIT/ML suspension 22 unit SQ DAILY Patient Comments: AFTER BREAKFAST insulin NPH isoph U-100 human [Novolin N NPH U-100 Insulin] 100 UNIT/ML suspension 20 unit SQ QHS calcium carbonate 500 MG tablet 500 mg PO DAILY ascorbic acid (vitamin C) [Vitamin C] 500 MG tablet 500 mg PO DAILY ferrous sulfate 325 MG tablet 325 mg PO DAILY benazepril 20 MG tablet 20 mg PO DAILY doxycycline monohydrate 100 MG capsule 100 mg PO BID Qty: 14 0RF nystatin 1 APPLIC bottle 1 applic topical TID Qty: 1 0RF Rx Instructions: Apply to left axilla Primary Care Provider: Alexadner Velez Referrals: Alexander Velez MD [Primary Care Provider] - 1 Week Print Language: Divehi Disposition Disposition: Home, Self Care
[2024-03-27 10:21] VITALS: BP 134/69; PULSE 72; RESP 15; TEMP 36.4; O2SAT 98
== END 2024-03-27 10:22 | disposition home or self-care (01) ==
LOC: ED 10:14
PROVIDERS: Emergency Provider Emergency Medicine; PCP Family Medicine; Visit Provider Emergency Medicine
DX: L03.115 Cellulitis of right lower limb (principal); E11.42 Type 2 diabetes mellitus with diabetic polyneuropathy; Z79.4 Long term (current) use of insulin; L02.415 Cutaneous abscess of right lower limb; I89.0 Lymphedema, not elsewhere classified; I10 Essential (primary) hypertension; Z79.82 Long term (current) use of aspirin; Z79.899 Other long term (current) drug therapy; Z86.14 Personal history of Methicillin resistant Staphylococcus aureus infection
CPT/HCPCS: 99282

== ENCOUNTER 2024-11-11 12:14 | Emergency (ER) | payer MEDICARE, SELFPAY ==
[2024-11-11 12:14] VITALS: BP 192/99; PULSE 92; RESP 16; TEMP 36.1; O2SAT 97; BMI 56.4
[2024-11-11 12:17] VITALS: BP 192/99; PULSE 92; RESP 15; TEMP 36.1; O2SAT 97
--- NOTE | 2024-11-11 12:24 | EKG12_ITS ---
Test Reason : CP Blood Pressure : */* mmHG Vent. Rate : 88 BPM Atrial Rate : 88 BPM P-R Int : 180 ms QRS Dur : 80 ms QT Int : 358 ms P-R-T Axes : 48 -10 39 degrees QTcB Int : 433 ms Normal sinus rhythm with sinus arrhythmia Inferior infarct , age undetermined Abnormal ECG Confirmed by SARBJIT MAGALLON, NAWAF ([id number]), editorial clerk SHELBIE MONTES ([id number]) on 11/12/2024 8:47:39 AM Referred By: JUNIOR/FRENCH Confirmed By: NAWAF SCHAFFER MD
--- NOTE | 2024-11-11 12:38 | ED.VIS.CHEST ---
HPI History of Present Illness Chief Complaint: Chest Pain Informant: patient Onset/Context/Timing Onset: Days Activity at onset: gradual Timing: Continuous Quality: Positive for Pain and Sharp (Right sternal and lower right rib cage chest wall pain. Days.) Location: Right Chest Current Severity: Mild Maximum Severity: Mild Worsened By: Movement of Torso Relieved By: Remaining Still Associated Symptoms: Negative for Nausea, Vomiting, Diaphoresis, Dyspnea, Cough, Fever, Lightheadedness, Acid Reflux or Palpitations Narrative Narrative: 58-year-old female history of hypertension, chronic kidney disease and diabetes. Complaining of right sided sternal and right lower rib cage pain. Been going on for 3 days. No fall injury or trauma. No history of DVT or PE. Denies any recent travel, surgery or immobilization. No shortness of breath. No hemoptysis. No leg pain or swelling. Says she has a chronic cough with chronic butyrin production. Has not new or changed. Denies any fever. No exertional chest pain. No nausea or shortness of breath. Prior Similar Symptoms: No Recent Illness/Hospitalization: No CVD Risk Factors: Positive for Diabetes PE Risk Factors: Negative for Recent Travel/Surgery, Recent Immobilization, Prior DVT or PE, Cancer or OCP + Smoking + >/=35 TAD Risk Factors: Negative for Marfan's Syndrome [facility] Medical History Morbid obesity HLD (hyperlipidemia) HTN (hypertension) Osteomyelitis Avascular necrosis of bone Charcot ankle Type 2 diabetes mellitus with diabetic polyneuropathy Home Medications ?Medication ?Instructions ?Recorded ?Last Taken ?Type aspirin 81 mg chewable tablet 81 mg PO QHS heart health 07/17/16 07/11/17 History gabapentin 300 mg capsule 300 mg PO QHS neuropathy 09/07/16 07/10/17 History ondansetron 4 mg disintegrating 4 mg PO Q8H PRN PRN Nausea #10 tabs 10/15/16 07/11/17 Rx tablet acetaminophen 325 mg tablet 650 mg (2 x 325 mg) PO Q6H PRN PRN 08/07/17 Unknown Rx (Tylenol) Mild Pain (scale 0-3)/T>100.7 cholecalciferol (vitamin D3) 50 2,000 unit PO DAILY supplement 11/09/17 Unknown History mcg (2,000 unit) capsule (Vitamin D3) insulin NPH isoph U-100 human 100 20 unit SQ QHS blood sugar 11/09/17 Unknown History unit/mL subcutaneous suspension (Novolin N NPH U-100 Insulin isophane) insulin NPH isoph U-100 human 100 22 unit SQ DAILY blood sugar 11/09/17 Unknown History unit/mL subcutaneous suspension (Novolin N NPH U-100 Insulin isophane) insulin regular human 100 unit/mL 5 unit subcut TID DIABETES 11/09/17 Unknown History injection solution (Novolin R Regular U-100 Insulin) polyethylene glycol 3350 17 gram 17 g PO DAILY PRN Constipation 11/09/17 Unknown History oral powder packet ascorbic acid (vitamin C) 500 mg 500 mg PO DAILY SUPPLEMENT 05/14/18 Unknown History tablet (Vitamin C) calcium carbonate 500 mg PO DAILY SUPPLEMENT 05/14/18 Unknown History benazepril 20 mg tablet 20 mg PO DAILY 10/03/19 Unknown History doxycycline monohydrate 100 mg 100 mg PO BID #14 caps 10/03/19 Unknown Rx capsule ferrous sulfate 325 mg (65 mg 325 mg PO DAILY 10/03/19 Unknown History iron) tablet nystatin 100,000 unit/gram topical 1 applic topical TID ##1 10/03/19 Unknown Rx powder cephalexin 500 mg capsule 500 mg PO Q6 #28 CAPSULES 03/27/24 Unknown Rx doxycycline hyclate 100 mg capsule 100 mg PO BID 7 days #14 caps 03/27/24 Unknown Rx dapagliflozin propanediol 10 mg 10 mg PO DAILY 11/11/24 Unknown History tablet (Farxiga) hydrocodone-acetaminophen 5-325mg 1 tab PO Q6H PRN pain 3 days #10 11/11/24 Unknown Rx 5mg-325mg tabs insulin lispro 100 unit/mL subcut 11/11/24 Unknown History subcutaneous pen lovastatin 40 mg tablet 80 mg PO QHS 11/11/24 Unknown History omeprazole 40 mg capsule,delayed 40 mg PO DAILY 11/11/24 Unknown History release prednisone 20 mg tablet 40 mg (2 x 20 mg) PO DAILY 6 days 11/11/24 Unknown Rx #12 tabs semaglutide 2 mg/dose (8 mg/3 mL) 2 mg subcut QWEEK 11/11/24 Unknown History subcutaneous pen injector (Ozempic) sertraline 100 mg tablet 100 mg PO DAILY 11/11/24 Unknown History Allergy/AdvReac Type Severity Reaction Status Date / Time latex AdvReac Rash Verified 11/11/24 12:17 morphine AdvReac Vomiting Verified 11/11/24 12:17 sulfamethoxazole (From AdvReac Vomiting Verified 11/11/24 12:17 Bactrim) tramadol AdvReac Vomiting Verified 11/11/24 12:17 trimethoprim (From Bactrim) AdvReac Vomiting Verified 11/11/24 12:17 Surgical History S/P ankle fusion Social History Smoking Status: Never smoker ROS ROS ED ROS Narrative Right-sided chest pain. Constitutional Constitutional ED: Denies chills or fever(s) Eyes Eyes: Reports none ENT ENT ED: Denies ear pain Cardiovascular Cardiovascular: Reports as per HPI and chest pain; Denies palpitations or racing heartbeat Respiratory/Chest Respiratory/Chest: Denies cough, dyspnea or dyspnea on exertion Gastrointestinal Gastrointestinal: Denies abdominal pain, constipation, diarrhea, melena, nausea or vomiting Genitourinary Genitourinary ED: Denies dysuria or hematuria Musculoskeletal Musculoskeletal: Denies arthralgias or back pain Integumentary Denies abscess Neurologic Neurologic: Denies headache(s) Psychiatric Psychiatric: Denies anxiety or depression Endocrine Endocrinology: Denies cold intolerance Hematologic/Lymphatic Hematologic/Lymphatic: Denies easy bleeding, easy bruising or lymphadenopathy Allergic/Immunologic Allergic/Immunologic ED: Denies mouth swelling or tongue swelling EXAM Physical Exam Narrative Exam Narrative: Well-appearing 58-year-old female sitting upright in bed. Vital signs are stable. She is afebrile. She does not look septic toxic. No distress. Pulse ox 99% on room air no hypoxia. H EENT exam pupils round react light. Moist mucous membranes. Neck nontender no lymphadenopathy. Lungs clear to auscultation bilaterally. Heart regular rate and rhythm rate about 90 no murmur. Reproducible chest wall pain on the right side of the sternum and right lower rib cage. There is no ecchymosis or bruising. No subcu air or crepitance. No bony deformity. No rash. No redness. No discoloration. It is obviously reproducible pain. Abdomen is soft and nontender. No peritoneal signs. Moving all 4 extremities. 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 Normal dorsi plantarflexion. Calves are nontender without edema or cords. Neurologically she is awake and alert. Back reproducible pain over the right lower rib cage. But again no discoloration of the skin. No signs of trauma. Const Vital Signs: 11/11/24 12:14 11/11/24 12:17 11/11/24 12:24 Temperature 96.9 F L 96.9 F L Temperature Source Temporal Temporal Pulse Rate 92 92 Respiratory Rate 16 15 Respiratory Effort Blood Pressure 192/99 H 192/99 H Blood Pressure Mean 130 130 Pulse Ox 97 97 Oxygen Delivery Method Room Air Room Air 11/11/24 12:24 11/11/24 13:14 11/11/24 14:00 Temperature Temperature Source Pulse Rate 86 88 Respiratory Rate 17 17 Respiratory Effort Normal Non-Labored Blood Pressure 153/94 H 144/102 H Blood Pressure Mean 113 116 Pulse Ox 94 96 Oxygen Delivery Method Positive well nourished and well developed; Negative for cachectic, contractures or unkempt General Appearance ED: well developed and NAD; Negative for unkempt, cachectic, contractures or pallor Nutritional Appearance: Negative for cachectic HEENT Reports moist mucous membranes normocephalic and atraumatic; Negative for trauma or tenderness Eyes PERRL and EOMs intact bilaterally General Eye ED: Negative for pale conjunctiva or scleral icterus Neck no lymphadenopathy, supple and no JVD Chest Wall inspection of chest normal and palpation of chest normal Chest Narrative: Reproducible chest wall pain right side of the sternum and right lower rib cage and right posterior ribs. No discoloration. No bruising. No crepitus. No bony deformity. No rash Chest: tenderness Resp normal respiratory effort and clear to auscultation bilaterally Effort and Inspection: Negative for respiratory distress Auscultation: Negative for rales, rhonchi, wheezes or diminished lung sounds Cardio regular rate, regular rhythm, S1 normal heart sound, S2 normal heart sound and no murmurs Peripheral Pulses: pulses 2+ throughout GI normal to inspection, nondistended, normoactive bowel sounds, soft to palpation, non-tender, non-distended and no masses Back/Spine no CVA tenderness and no thoracic nor lumbar tenderness Back/Spine Narrative: Right posterior rib cage tenderness. Extremity General Extremety ED: Negative for edema, pulses abnormal or tenderness General Extremity: Negative for edema or pulses abnormal Neuro oriented x3 and CN's II-XII intact bilaterally Sensorium / Orientation: awake, alert, oriented to person, oriented to place and oriented to time; Negative for confused, lethargic or stuporous Motor Exam: strength 5/5 throughout Psych mental status grossly normal Appearance: Negative for unkempt Attitude: No agitated Mood & Affect: Negative for depressed, anxious or tearful Skin no rashes or lesions noted and no wounds General Skin Exam: Negative for jaundice or pallor Rashes: No rashes noted Trauma: Negative for abrasion, laceration or puncture MDM MDM MDM Narrative Medical decision making narrative: 58-year-old female with what appears to be a right sided reproducible chest wall pain. No DVT or PE history or risk factors. She undergo a cardiac workup. That is negative she will be discharged home. She has had pain for 2 to 3 days. She will be given morphine for pain and Zofran. Repeat exam at 2:14 PM. Patient doing well. Went over her test results. I suspect this is either musculoskeletal chest wall pain or pleurisy. She is reproducible [place] more, chest wall pain. She cannot do NSAIDs due to chronic kidney disease. She be placed on prednisone and limited narcotic pain medication. Follow-up with her doctor. History & Record Review Discussion w/independent historian: Patient Additional record(s) reviewed:: Prior inpatient record, Prior outpatient record, Prior ED visit, Prior labs and No prior records Lab Data Attestation: I reviewed the patient's lab results. Lab results narrative: CBC normal. White count 7. H&H 14 and 44. Platelets 212. Electrolytes show sodium 135. Gap 6. BUN 19 creatinine 1.3. Glucose 177. Troponin is normal at 34. Chest x-ray negative. Labs: Laboratory Results - last 24 hr 11/11/24 13:03 WBC 7.7 RBC 5.10 Hgb 14.2 Hct 44.1 MCV 86.5 MCH 27.8 MCHC 32.2 RDW Std Deviation 45.1 H RDW Coeff of Luisa 14.2 Plt Count 212 MPV 10.7 Immature Gran % (Auto) 0.400 Neut % (Auto) 69.2 Lymph % (Auto) 20.7 [place] % (Auto) 6.4 Eos % (Auto) 2.9 Baso % (Auto) 0.4 Absolute Neuts (auto) 5.3 Absolute Lymphs (auto) 1.59 Nucleated RBC % 0 Sodium 135 L Potassium 4.7 Chloride 103 Carbon Dioxide 26.0 Anion Gap 6 BUN 19 H Creatinine 1.30 H Estim Creat Clear Calc 74.32 Est GFR (MDRD) Af Amer 54 L Est GFR (MDRD) Non-Af 44 L BUN/Creatinine Ratio 14.6 Glucose 177 H Calcium 9.7 Troponin I High Sens 34 Radiography Chest X-Ray - ED: 2 View, Read by ED Physician, Read by Radiologist, Lungs, Mediastinum, Bony Structures, No Acute Disease and Chronic Changes Diagnostic Testing: Clinical Impression(s) from Imaging Studies Chest X-Ray 11/11/24 13:30 IMPRESSION: No acute cardiopulmonary process. Reading Location: [facility] Chest x-ray, 2 views, AP and lateral, interpreted by myself and radiologist shows no acute abnormality. Normal cardiac silhouette. Normal mediastinum. Rhythm Strip Rate: 88 Ectopy: None EKG Initial EKG: Attestation: I personally reviewed and interpreted this EKG as follows: Interpretation: Sinus Rhythm and No Acute Injury Pattern Comments: Normal sinus rhythm rate 88 no acute signs of AK or ischemia. Discharge Plan Triage Chief Complaint: Chest Pain ED Provider: Galo Munguia Dx/Rx/DC Orders Clinical Impression: Anterior chest wall pain, History of diabetes mellitus, History of hypertension, History of chronic kidney disease Instructions: ED Chest Wall Pain, Costochondritis Prescriptions: New prednisone 20 mg tablet 40 mg PO DAILY 6 Days Qty: 12 0RF hydrocodone-acetaminophen 5-325 mg tablet 1 tab PO Q6H PRN (Reason: pain) 3 Days Qty: 10 0RF No Action aspirin 81 MG tablet,chewable 81 mg PO QHS Patient Comments: BLOOD THINNER/heart health WAS NOT TOLD TO STOP FOR SURGERY gabapentin 300 MG capsule 300 mg PO QHS Patient Comments: restless legs/neuropathy ondansetron 4 MG tablet 4 mg PO Q8H PRN PRN (Reason: Nausea) Qty: 10 0RF Patient Comments: nausea acetaminophen [Tylenol] 325 MG tablet 650 mg PO Q6H PRN PRN (Reason: Mild Pain (scale 0-3)/T>100.7) 0RF Patient Comments: pain cholecalciferol (vitamin D3) [Vitamin D3] 2,000 UNIT capsule 2,000 unit PO DAILY polyethylene glycol 3350 17 GM powder in packet 17 g PO DAILY PRN (Reason: Constipation) insulin regular human [Novolin R Regular U100 Insulin] 100 UNIT/ML solution 5 unit subcut TID Patient Comments: AFTER BREAKFAST insulin NPH isoph U-100 human [Novolin N NPH U-100 Insulin] 100 UNIT/ML suspension 22 unit SQ DAILY Patient Comments: AFTER BREAKFAST insulin NPH isoph U-100 human [Novolin N NPH U-100 Insulin] 100 UNIT/ML suspension 20 unit SQ QHS calcium carbonate 500 MG tablet 500 mg PO DAILY ascorbic acid (vitamin C) [Vitamin C] 500 MG tablet 500 mg PO DAILY ferrous sulfate 325 MG tablet 325 mg PO DAILY benazepril 20 MG tablet 20 mg PO DAILY doxycycline monohydrate 100 MG capsule 100 mg PO BID Qty: 14 0RF nystatin 1 APPLIC bottle 1 applic topical TID Qty: 1 0RF Rx Instructions: Apply to left axilla cephalexin 500 mg capsule 500 mg PO Q6 Qty: 28 0RF doxycycline hyclate 100 mg capsule 100 mg PO BID 7 Days Qty: 14 0RF insulin lispro 100 unit/mL insulin pen SUBCUT Patient Comments: INJECT 10 UNITS SUBCUTANEOUSLY BEFORE BREAKFAST, 14 UNITS BEFORE LUNCH AND 10 UNITS BEFORE DINNER dapagliflozin propanediol [Farxiga] 10 mg tablet 10 mg PO DAILY lovastatin 40 mg tablet 80 mg PO QHS sertraline 100 mg tablet 100 mg PO DAILY omeprazole 40 mg capsule,delayed release(DR/EC) 40 mg PO DAILY Ozempic 2 mg/dose (8 mg/3 mL) pen injector 2 mg subcut QWEEK Primary Care Provider: Alexander Velez Referrals: Alexander Velez MD [Primary Care Provider] - 1 Week if not improving Activity Restrictions/Additional Instructions: [place] for pain. Prednisone daily for possible inflammation in your chest wall or lung. Follow-up with your doctor if not improving or return if worse. Print Language: [place] Islander Disposition Disposition: Home, Self Care
[2024-11-11 13:10] LABS: Absolute Lymphocyte Count 1.59 X10^3/uL (0.83-4.51); Absolute Neutrophil Count 5.3 X10^3/uL (2.0-7.7); Basophil# 0.03 X10^3/uL; Basophil% 0.4 % (0-1); Eosinophil# 0.22 X10^3/uL; Eosinophils% 2.9 % (0-5); Hematocrit 44.1 % (37-47); Hemoglobin 14.2 g/dL (12.0-15.0); Lymphocyte # 1.59 X10^3/ul (0.83-4.51); Lymphocyte % 20.7 % (19-41); Mean Corp Hgb Conc 32.2 g/dL (32-36); Mean Corpuscular Hgb 27.8 pg (27.0-32.0); Mean Corpuscular Volume 86.5 fL (81-99); Mean Platelet Vol. 10.7 fl (6.2-12.0); Monocyte# 0.49 X10^3/uL; Monocyte% 6.4 % (0-10); NRBC Flagged by Analyzer 0 % (0-5); Neutrophil # 5.33 X10^3/uL (2.7-7.7); Neutrophil % 69.2 % (47-70); Platelet Count 212 K/mm3 (150-450); RBC Distribution Width CV 14.2 % (11.6-14.6); RBC Distribution Width SD 45.1 fl (35.1-43.9); White Blood Count 7.7 K/mm3 (4.4-11.0)
[2024-11-11 13:14] VITALS: BP 153/94; PULSE 86; RESP 17; O2SAT 94
--- NOTE | 2024-11-11 13:30 | RAD_ITS ---
EXAM: XR Chest, 2 Views CLINICAL INDICATION: TECHNIQUE: Frontal and lateral views of the chest. COMPARISON: No relevant prior studies available. FINDINGS: LUNGS AND PLEURAL SPACES: Unremarkable. No consolidation. No pneumothorax. HEART: Unremarkable. No cardiomegaly. MEDIASTINUM: Unremarkable. Normal mediastinal contour. BONES/JOINTS: Unremarkable. No acute fracture. RAD/Chest PA and Lateral IMPRESSION: No acute cardiopulmonary process. Reading Location: [facility]
[2024-11-11 13:41] LABS: Anion Gap 6 (5-15); BUN 19 mg/dL (7-18); BUN/Creat Ratio 14.6 RATIO (10-20); Calcium,Total 9.7 mg/dL (8.5-10.1); Chloride 103 mmol/L (98-107); EST Glomerular Filtration Rate 44 mL/min (>60); Est Glom Filt Rate - Afr Amer 54 mL/min (>60); Estimated Creatinine Clearance 74.32 ml/min; Glucose 177 mg/dL (74-106); Potassium 4.7 mmol/L (3.5-5.1); Sodium Level 135 mmol/L (136-145); Troponin-I HS (w/2H Reflex) 34 pg/mL (3.0-54.0)
[2024-11-11] MEDS: Ondansetron 4 MG/2 ML Vial IV (13:54)
[2024-11-11] MEDS: Morphine 4 MG/ML Syringe IV (13:54)
[2024-11-11 14:00] VITALS: BP 144/102; PULSE 88; RESP 17; O2SAT 96
[2024-11-11] MEDS: predniSONE 20 MG Tablet 40 MG PO (14:34)
[2024-11-11 14:35] VITALS: BP 123/95; PULSE 74; RESP 18; TEMP 36.8; O2SAT 99
[2024-11-11 15:07] LABS: Reflex Troponin-HS? (from REC) Y
== END 2024-11-11 14:35 | disposition home or self-care (01) ==
PROVIDERS: Emergency Provider Emergency Medicine; PCP Family Medicine; Visit Provider Emergency Medicine
DX: R07.89 Other chest pain (principal); E11.22 Type 2 diabetes mellitus with diabetic chronic kidney disease; E11.42 Type 2 diabetes mellitus with diabetic polyneuropathy; Z79.4 Long term (current) use of insulin; E78.5 Hyperlipidemia, unspecified; I12.9 Hypertensive chronic kidney disease with stage 1 through stage 4 chronic kidney disease, or unspecified chronic kidney disease; N18.9 Chronic kidney disease, unspecified; Z79.82 Long term (current) use of aspirin; Z79.85 Long-term (current) use of injectable non-insulin antidiabetic drugs; Z79.899 Other long term (current) drug therapy
CPT/HCPCS: 71046; 80048; 84484; 85025; 93005; 96374; 96375; 99284; A4216; J2405